=== PATIENT | male | born 1945 | race Caucasian/White ===

== ENCOUNTER 2017-08-27 10:56 | Inpatient (IN) ==
--- NOTE | 2017-08-26 21:13 | Discharge Summary ---
<Kiara Hernandez E - Last Filed: 08/26/17 21:11> Date of Encounter: 08/26/17 - Discharge Diagnosis (1) Osteoarthritis of right knee Priority: Primary Status: Chronic Qualifiers: Osteoarthritis type: unspecified Qualified Code(s): M17.11 - Unilateral primary osteoarthritis, right knee (2) HLD (hyperlipidemia) Priority: Secondary Status: Chronic Qualifiers: Hyperlipidemia type: unspecified Qualified Code(s): E78.5 - Hyperlipidemia , unspecified (3) RLS (restless legs syndrome) Priority: Secondary Status: Chronic (4) HTN (hypertension) Priority: Secondary Status: Chronic Qualifiers: Hypertension type: unspecified Qualified Code(s): I10 - Essential (primary ) hypertension (5) Seizure disorder Priority: Secondary Status: Chronic (6) Chronic deep vein thrombosis (DVT) of left lower extremity Priority: Secondary Status: Chronic Qualifiers: Affected thrombotic vein of extremity: unspecified vein of extremity Qualified Code(s): I82.502 - Chronic embolism and thrombosis of unspecified deep veins of left lower extremity (7) GERD (gastroesophageal reflux disease) Priority: Secondary Status: Chronic Qualifiers: Esophagitis presence: esophagitis presence not specified Qualified Code(s) : K21.9 - Gastro-esophageal reflux disease without esophagitis - Discharge Medications Home Medications: Phenytoin [Dilantin] 200 mg PO TID 04/01/15 [History] Pantoprazole Sodium [Protonix] 40 mg PO DAILY 01/06/16 [History] Primidone [Mysoline] 250 mg PO BID 01/06/16 [History] diazePAM [Valium] 5 mg PO DAILY PRN 01/06/16 [History] Acetaminophen [Tylenol] 650 mg PO Q6HR PRN #0 tablet 01/22/16 [Rx] Rivaroxaban [Xarelto] 15 mg PO DAILY 03/08/17 [History] Celecoxib [Celebrex] 200 mg PO BID 08/08/17 [History] Furosemide [Lasix] 20 mg PO DAILY 08/08/17 [History] OxyCODONE Immed Rel [Roxicodone 5 MG] 5 mg PO Q6HR PRN 7 Days #28 tablet [Rx] Ropinirole HCl [Requip] 3 mg PO TID 08/27/17 [History] Allergies/Adverse Reactions: 3 Allergy/AdvReac Type Severity Reaction Status Date / Time Penicillins [PCN] Allergy Hives Verified 08/27/17 12:05 Sulfa (Sulfonamide Allergy Hives Verified 08/27/17 12:05 Antibiotics) Primary care physician: Aliyah Torres CNP - Patient Status Disposition: Home, Self-Care Condition: Good - Discharge Instructions Follow Up With: Aliyah Torres CNP [Primary Care Provider] - - Hospital Course Hospital course: Mr. De La Fuente is a 72 year old male - Time Spent with Patient Total time spent providing and/or coordinating discharge services: <Juan Daniel Rangel - Last Filed: 08/29/17 10:25> Date of Encounter: 08/29/17 Time of Encounter: 10:24 - Discharge Diagnosis (1) Seizure Priority: Secondary Status: Chronic (2) Left bundle branch block Status: Chronic (3) GERD (gastroesophageal reflux disease) Priority: Secondary Status: Chronic Qualifiers: Esophagitis presence: esophagitis presence not specified Qualified Code(s) : K21.9 - Gastro-esophageal reflux disease without esophagitis (4) Osteopenia Priority: Secondary Status: Chronic Qualifiers: Osteopenia location: forearm Laterality: unspecified laterality Qualified Code(s): M85.839 - Other specified disorders of bone density and structure, unspecified forearm (5) Osteoarthritis of right knee Priority: Primary Status: Chronic Qualifiers: Osteoarthritis type: unspecified Qualified Code(s): M17.11 - Unilateral primary osteoarthritis, right knee (6) HLD (hyperlipidemia) Priority: Secondary Status: Chronic Qualifiers: Hyperlipidemia type: unspecified Qualified Code(s): E78.5 - Hyperlipidemia , unspecified (7) RLS (restless legs syndrome) Priority: Secondary Status: Chronic (8) HTN (hypertension) Priority: Secondary Status: Chronic Qualifiers: Hypertension type: unspecified Qualified Code(s): I10 - Essential (primary ) hypertension (9) Chronic deep vein thrombosis (DVT) of left lower extremity Priority: Secondary Status: Chronic Qualifiers: Affected thrombotic vein of extremity: unspecified vein of extremity Qualified Code(s): I82.502 - Chronic embolism and thrombosis of unspecified deep veins of left lower extremity (10) Status post total right knee replacement Priority: Primary Status: Acute Primary care physician: Aliyah Torres CNP - Patient Status Functional capacity at discharge: uses cane/walker Overall status at discharge: patient is progressing back to baseline - Hospital Course Hospital course: Mr. De La Fuente is a 72 year old male status post right total knee replacement The patient had an uneventful postoperative course. They received antibiotics and physical therapy and were discharged in stable condition. There will follow -up in the office in 2 weeks. - Time Spent with Patient Total time spent providing and/or coordinating discharge services:
--- NOTE | 2017-08-26 21:16 | Physician Discharge Referral ---
Home Health/Hosp Referral Info Transfer to: Home Health Attending Provider: Dr Juan Daniel Rangel - Diagnosis (1) Status post total right knee replacement Priority: Primary Status: Acute (2) Osteoarthritis of right knee Priority: Primary Status: Chronic (3) HLD (hyperlipidemia) Priority: Secondary Status: Chronic (4) RLS (restless legs syndrome) Priority: Secondary Status: Chronic (5) HTN (hypertension) Priority: Secondary Status: Chronic (6) Seizure disorder Priority: Secondary Status: Chronic (7) Chronic deep vein thrombosis (DVT) of left lower extremity Priority: Secondary Status: Chronic (8) GERD (gastroesophageal reflux disease) Priority: Secondary Status: Chronic - Respiratory Orders Smoking Cessation: Smoking cessation has been advised. For more information, call the [employer] Tobacco Quit Line at [phone]-EHKA-NOW. - Dressing/Wound Care Site: right knee Type of Dressing/Treatments w/Frequency: Opsite placed. Keep dressing intact until first follow up appointment. If > 50% saturated, notify office, remove dressing and place appropriate dressing back in place. Leave Zipline intact. Opsite dressing is water resistant, not water- proof. OK to shower, but do not get dressing wet. - Diet/Nutrition Diet/Nutrition Orders: Regular - Activity Activity Orders: Up ad kat, Ambulate, Chair, Walker Activity: List: Total Knee replacement Precautions x 6 weeks Apply cold therapy wrap 3-6x/day for 20 minutes at a time. Encourage ambulation throughout the day and incentive spirometer 10x/hour. Elevate affected extremity above heart as tolerated. Brace: Wear knee immobilizer at night x 2 weeks. - Services Needed Following services are medically necessary services: Nursing, Home Health Aide, Physical Therapy, Occupational Therapy - Transfer Medications Prescriptions: OxyCODONE Immed Rel [Roxicodone 5 MG] 5 mg PO Q6HR PRN 7 Days #28 tablet PRN Reason: Severe Pain Home Medications: Phenytoin [Dilantin] 200 mg PO TID 04/01/15 [History] Pantoprazole Sodium [Protonix] 40 mg PO DAILY 01/06/16 [History] Primidone [Mysoline] 250 mg PO BID 01/06/16 [History] diazePAM [Valium] 5 mg PO DAILY 01/06/16 [History] Acetaminophen [Tylenol] 650 mg PO Q6HR PRN #0 tablet 01/22/16 [Rx] Rivaroxaban [Xarelto] 15 mg PO DAILY 03/08/17 [History] Ropinirole HCl [Requip] 2 mg PO TID 03/08/17 [History] Celecoxib [Celebrex] 200 mg PO BID 08/08/17 [History] Furosemide [Lasix] 20 mg PO DAILY 08/08/17 [History] OxyCODONE Immed Rel [Roxicodone 5 MG] 5 mg PO Q6HR PRN 7 Days #28 tablet [Rx] Allergies/Adverse Reactions: 3 Allergy/AdvReac Type Severity Reaction Status Date / Time Penicillins [PCN] Allergy Hives Verified 08/06/17 09:37 Sulfa (Sulfonamide Allergy Hives Verified 08/06/17 09:37 Antibiotics) Certification: Further, I certify that my clinical findings support that this patient is homebound (i.e. absences from home require considerable and taxing effort and are for medical reasons or gnosticism services or infrequently or short duration when for other reasons) because: Homebound Reason: Post-surgery restriction and or conditions limit ability to leave home Attestation: My signature below is to certify that this patient is under my care and that I, or nurse practitioner, or a physician export sales assistant working with me, has a face-to- face encounter with this patient.
[2017-08-27] MEDS ORDERED: Clindamycin 900 MG/50 ML 900 MG/50 ML IV.SOLN IVPB ONE ×2 (11:08→11:11)
[2017-08-27] MEDS ORDERED: Plasma-Lyte A (PH 7.4) 1,000 ML IVC SCH (11:15)
--- NOTE | 2017-08-27 11:35 | History & Physical Report ---
Date of Encounter: 08/27/17 Time of Encounter: 11:35 24 Hour HP Update - Instructions Instructions: If the History and Physical is less than 30 days old and was completed prior to A.M. admission and or procedure and has NOT been updated on calendar day of procedure please complete this update prior to performing procedure. - Update Patient reports changes in Medical Condition: No Changes in examination, assessment, or condition: No Changes in Medication: No Preop tests/diagnostics Reviewed: Yes Surgery Remains Indicated: Yes Consent for Planned Operative Procedure(s) Verified: Yes - Pre-Operative Checklist Preoperative Checklist Indicated: No Prophylactic Antibiotic Ordered: Yes Is VTE Prophylaxis Indicated?: Yes
--- NOTE | 2017-08-27 11:50 | Anesthesia Evaluation PreOp ---
Date of Encounter: 08/27/17 Time of Encounter: 11:48 - Past History Planned Operation: Right Total Knee Arthroplasty Cardiac History: Denies any Significant Hx Pulmonary History: Denies Any Significant HX CROCHETER HAND History: Seizures (stable being medically treated), Other (RLS) Other Medical History: GERD, Other (H/O DVT's S/P IVC filter) Anesthesia History: No Prior Anesthetic Complications, Past Anesthesia Alcohol Use: none Drug use: none Medications and Allergies Phenytoin [Dilantin] 200 mg PO TID 04/01/15 [History] Pantoprazole Sodium [Protonix] 40 mg PO DAILY 01/06/16 [History] Primidone [Mysoline] 250 mg PO BID 01/06/16 [History] diazePAM [Valium] 5 mg PO DAILY PRN 01/06/16 [History] Acetaminophen [Tylenol] 650 mg PO Q6HR PRN #0 tablet 01/22/16 [Rx] Rivaroxaban [Xarelto] 15 mg PO DAILY 03/08/17 [History] Celecoxib [Celebrex] 200 mg PO BID 08/08/17 [History] Furosemide [Lasix] 20 mg PO DAILY 08/08/17 [History] OxyCODONE Immed Rel [Roxicodone 5 MG] 5 mg PO Q6HR PRN 7 Days #28 tablet [Rx] Ropinirole HCl [Requip] 3 mg PO TID 08/27/17 [History] 3 Allergy/AdvReac Type Severity Reaction Status Date / Time Penicillins [PCN] Allergy Hives Verified 08/27/17 12:05 Sulfa (Sulfonamide Allergy Hives Verified 08/27/17 12:05 Antibiotics) - Meds/Allergy Pre-op Review Medications Reviewed: Yes (xarelto-last dose 08/24/2017 at 0600) Allergies Reviewed: Yes Beta Blockers on Current Med List: No Anesthesia Results - Labs Laboratory Tests 08/06/17 08/06/17 08/06/17 09:45 09:45 09:45 WBC 5.3 Hgb 12.1 L Hct 39.1 Plt Count 224 PT 11.5 INR 1.1 APTT 30.2 Sodium 139 Potassium 4.2 BUN 27 H Creatinine 1.16 - Imaging EKG: report reviewed (08/06/2017 SINUS RHYTHM WITH FIRST DEGREE AV BLOCK INFERIOR MYOCARDIAL INFARCTION, PROBABLY OLD) Additional studies: 01/08/2016 Echo Impressions: Hyperdynamic LV systolic function, EF >70%. Not all myocardial segments were well visualized secondary to clinical status and tachycardia. Hyperdynamic RV function. Atria not well visualized. No significant valve dysfunction. Mild pulmonary hypertension. The IVC is not dilated. Trivial pericardial effusion without evidence for tamponade physiology. Anesthesia Exam O2 Sat Height 1.78 m Height 1.78 m Height 1.78 m Weight 90.718 kg Weight 90.718 kg Weight 90.718 kg O2 Sat by Pulse Oximetry 96 Vital Signs Temp Pulse Resp BP Pulse Ox 97.6 F 81 18 151/85 96 08/27/17 11:15 08/27/17 11:15 08/27/17 11:15 08/27/17 11:15 08/27/17 11:15 Height: 5'10" Weight: 200 lbs NPO (# of Hours): 8 Pain Scale: 0 Pain Scale Used: Numeric (1 - 10) - HEENT Pupil (Motor): EOMI Mallampati: II Teeth: Normal Oral Opening: Greater than 3 - CROCHETER HAND LOC: Oriented CROCHETER HAND Motor: Normal RUE, Normal LUE, Normal RLE, Normal LLE, Normal Face CROCHETER HAND Sensory: Normal: RUE, LUE, RLE, LLE, Face - Cardiac Rhythm: Regular - Pulmonary Breath Sounds: bilateral Clear Respiratory Effort: Symmetrical Anesthesia Assess/Plan ASA Score: 3 Modified [place] Scale for Level of Consciousness: Cooperative, oriented, and tranquil Anesthetic Plan: Regional Monitoring Plan: Standard Monitors Recovery Plan: PACU
[2017-08-27] MEDS ORDERED: Ethanol\\Acetic Acid\\Na Ace\\Ben 1,000 ML IRRIG.SOLN IR ONE (12:09)
[2017-08-27] MEDS ORDERED: *HR* FentaNYL (PF) 100 MCG/2 ML VIAL ONE (13:40)
[2017-08-27] MEDS ORDERED: *HR* Propofol 200 MG/20 ML VIAL IVP ONE (13:40)
[2017-08-27] MEDS ORDERED: Ketorolac 30 MG/ML VIAL ONE (13:40)
[2017-08-27] MEDS ORDERED: Lidocaine -MPF 2% 2 ML VIAL ONE ×3 (13:40→14:38)
[2017-08-27] MEDS ORDERED: *HR* Midazolam HCl 2 MG/2 ML VIAL ONE (13:56)
--- NOTE | 2017-08-27 14:31 | Anesthesia Procedures ---
Date of Encounter: 08/27/17 Time of Encounter: 14:28 Procedures: Anesthesia - Epidural/Spinal Patient ID/Chart reviewed: Yes Patient examined: Yes Supplemental Oxygen Rate (L/min): 2 Sedation: Versed (mg): 2 Sedation: Fentanyl (mcg): 50 Site Prep: Aseptic Technique, 0.5% Chlorhexidine/Alcohol Patient position: upright Local Anesthetic: Lidocaine 1% Amount of Local Anesthetic used: 3 Touhy Needle Gauge: 18 Touhy Needle Depth (cm): 7 Catheter Depth at Skin (cm): 14 Test Dose (1.5% Lido + Epi): Volume given (mls): 3 Test Dose Result: Negative Catheter Secured in Place: Tegaderm Interspace Used: L4-L5 Loss of Resistance (MARIA L): Yes Blood: No CSF: No Paresthesia: No Procedure: Strict asepsis, good MARIA L. Test dose negative thru catheter, but bolus dose held until patient taken to OR.
[2017-08-27] MEDS ORDERED: Acetaminophen IV 1,000 MG/100 ML INFUS..BTL ONE (14:32)
[2017-08-27] MEDS ORDERED: *HR* Morphine Sulfate/PF 10 MG/10 ML AMPUL ONE (14:32)
[2017-08-27] MEDS ORDERED: Bupivacaine/EPI 1:200k 0.5%PF 30 ML VIAL ONE (15:32)
[2017-08-27] MEDS ORDERED: *HR* OxyCODONE/APAP 5/325 TABLET PO PRN ×2 (15:32→17:20)
--- NOTE | 2017-08-27 15:52 | Orthopedic Operative Note ---
Date of procedure: 08/27/17 Pre-op diagnosis: Right knee arthritis Post-op diagnosis: same Procedure: Procedure: robotic-assisted Total knee replacement Estimated blood loss: 200 cc Hardware: Metal and polyethylene replacement. Anderson Femur: 5 Tibia: 6 TS insert: 13 Patella: 39 Exam Under anesthesia: 2 degrees loss of extension 3 degrees varus as calculated by the robot full flexion and no instability Procedural Notes: grade 4 arthritic changes all 3 compartments Operative procedure: The patient was brought to the operating room and placed on the operating room table. After general anesthesia was administered the operative knee was examined. Findings were noted in the exam under anesthesia. The operative extremity was prepped and draped in sterile surgical fashion. The patient received IV antibiotics prior to skin incision. A standard midline incision was made centered over the patella. The incision was made through the skin and subcutaneous tissue. A medial parapatellar tendon approach was performed. Care was taken to preserve tissue along the medial aspect of the patella. And to protect the patella tendon. The deep MCL was released off the medial tibia. The infra patella fat pad was excised. The patella was everted and cut was made at the level of the insertion of the quadriceps and patella tendon. The patella was sized to a 39 the guide was seated and the lug holes are drilled. Knee was brought into flexion. Patient noted to have grade 4 arthritic changes all 3 compartments. Steinmann pins were placed in the tibia and the femur for the tibial and femoral arrays respectively. Checkpoints were also placed in the tibia and the femur for calculation purposes. The knee including the femur and the tibial registered. Osteophytes, ACL and PCL were excised at this point. Extension and flexion were assessed with a valgus stress components were adjusted on the computer to balance the knee. Femoral cuts were made first with robotic assistance, these included the anterior cut posterior cuts chamfer cuts. Tibial cut was then performed with robotic assistance as well. Bone fragments were removed, as well as the medial and lateral meniscus. The size 5 femoral guide was seated box cut was made lug holes are drilled. The size 6 tibial tray was seated and prepared with the fin cutter. Trial reduction with the 13 TS Kelley revealed extension of 0 degree neutral alignment and full flexion. No varus valgus instability. Trial reduction revealed excellent patella tracking. All trial components were removed all bony surfaces were irrigated. The Tibia was seated followed by the femur, The Kelley size 13 was seated and secured patella. Patient had similar findings for motion and stability. The knee was closed by the PA. Irrigated with an antimicrobial solution. The knee was then irrigated out with 2 L of pulse irrigation. The PA close the knee. The extensor mechanism was closed with #2 FiberWire suture and #2 PDS suture. The subcutaneous tissue was then irrigated and closed deep with #1 PDS suture superficially with 0 PDS suture and skin was closed with zip tie The patient was then placed in a sterile dressing and a postoperative brace extubated and transferred to recovery room in stable condition. Anesthesia: MAC, epidural Surgeon: Juan Daniel Rangel Was there an bookkeeping assistant present: No Estimated blood loss (cc): 200 Condition: stable Disposition: PACU
[2017-08-27] MEDS ORDERED: EPHEDrine 50 MG/ML VIAL IVP PRN (16:33)
[2017-08-27] MEDS ORDERED: Ringers Solution, Lactated 1,000 ML ONE (17:04)
[2017-08-27 17:15] LABS: Hematocrit 32.4 % (37.5-50.1); Hemoglobin 10.5 g/dL (12.9-16.9)
[2017-08-27] MEDS ORDERED: Ringers Solution, Lactated 1,000 ML IVC SCH ×2 (17:15→17:20)
[2017-08-27] MEDS ORDERED: Naloxone 0.4 MG/ML INJ IVP PRN (17:20)
[2017-08-27] MEDS ORDERED: diazePAM 5 MG TABLET PO PRN (17:20)
[2017-08-27] MEDS ORDERED: MOM Conc 10 ML UD.LIQ PO PRN (17:20)
[2017-08-27] MEDS ORDERED: Temazepam 15 MG CAPSULE PO PRN (17:20)
[2017-08-27] MEDS ORDERED: Clindamycin 900 MG/50 ML 900 MG/50 ML IV.SOLN IVPB SCH (17:20)
[2017-08-27] MEDS ORDERED: Ondansetron 4 MG/2 ML VIAL IVP PRN (17:20)
[2017-08-27] MEDS ORDERED: Sennosides 8.6 MG TABLET PO PRN (17:20)
[2017-08-27] MEDS: Clindamycin 900 MG/50 ML 900 MG/50 ML IV.SOLN IVPB SCH (22:22)
[2017-08-28] MEDS: Clindamycin 900 MG/50 ML 900 MG/50 ML IV.SOLN IVPB SCH (05:25)
--- NOTE | 2017-08-28 06:55 | Orthopedics Progress Note ---
Date of Encounter: 08/28/17 Time of Encounter: 06:55 - Assessment and Plan (1) Seizure Current Visit: No Status: Chronic (2) Left bundle branch block Current Visit: No Status: Chronic (3) GERD (gastroesophageal reflux disease) Current Visit: No Status: Chronic Qualifiers: Esophagitis presence: esophagitis presence not specified Qualified Code(s) : K21.9 - Gastro-esophageal reflux disease without esophagitis (4) Osteopenia Current Visit: No Status: Chronic Qualifiers: Osteopenia location: forearm Laterality: unspecified laterality Qualified Code(s): M85.839 - Other specified disorders of bone density and structure, unspecified forearm (5) Osteoarthritis of right knee Current Visit: No Status: Chronic Qualifiers: Osteoarthritis type: unspecified Qualified Code(s): M17.11 - Unilateral primary osteoarthritis, right knee (6) HLD (hyperlipidemia) Current Visit: No Status: Chronic Qualifiers: Hyperlipidemia type: unspecified Qualified Code(s): E78.5 - Hyperlipidemia , unspecified (7) RLS (restless legs syndrome) Current Visit: No Status: Chronic (8) HTN (hypertension) Current Visit: No Status: Chronic Qualifiers: Hypertension type: unspecified Qualified Code(s): I10 - Essential (primary ) hypertension (9) Chronic deep vein thrombosis (DVT) of left lower extremity Current Visit: No Status: Chronic Qualifiers: Affected thrombotic vein of extremity: unspecified vein of extremity Qualified Code(s): I82.502 - Chronic embolism and thrombosis of unspecified deep veins of left lower extremity (10) Status post total right knee replacement Current Visit: No Status: Acute Subjective Interval history: Patient was seen this morning doing well without complaints. Afebrile vital signs stable. Operative extremity: Neurovascularly intact Dressing clean dry and intact Calves nontender Assessment and plan: Continue with postoperative care Hematocrit 32 Objective Vital signs: Vital Signs Temp Pulse Resp BP Pulse Ox 08/28/17 04:01 97.6 F 66 15 108/68 98 08/28/17 00:07 97.6 F 70 16 119/75 95 08/27/17 21:20 97.6 F 60 16 128/88 98 08/27/17 19:04 97.7 F 70 16 132/84 96 08/27/17 18:06 97.3 F L 73 14 124/70 95 08/27/17 17:22 97.3 F L 68 12 120/67 96 08/27/17 16:56 97.0 F L 66 16 150/76 99 08/27/17 16:46 71 16 154/83 98 08/27/17 16:36 64 16 156/95 100 08/27/17 16:26 97.4 F L 51 14 80/54 100 08/27/17 14:44 67 16 106/60 98 08/27/17 14:29 18 124/77 97 08/27/17 14:14 84 18 161/90 98 08/27/17 11:15 97.6 F 81 18 151/85 96 Intake and Output 08/27/17 08/27/17 08/28/17 15:59 23:59 07:59 Intake Total 50 / 50 Output Total 200 / 200 Balance -200 / -200 50 / 50 Intake: IV Fluids 50 / 50 Cleocin Premix 900 MG/50 ML 900 50 / 50 mg In 50 ml @ 50 mls/hr IVPB Q8H MALORIE Rx#:[id number] Output: Urine 0 / 0 Estimated Blood Loss 200 / 200 Other: # Urine Diapers 925 Weight 90.718 kg 92.7 kg Patient Weight 08/28/17 23:59 Weight 92.7 kg - Labs CBC & BMP: 08/27/17 16:50 Labs: Abnormal lab results Hgb 10.5 g/dL (12.9-16.9) L 08/27/17 16:50 Hct 32.4 % (37.5-50.1) L 08/27/17 16:50 - VTE Documentation of Mechanical Device: Venous foot pump, device Consult Discharge Plan - Plan Referrals: Aliyah Torres, DIETETIC TECH [Primary Care Provider] -
[2017-08-28 07:01] LABS: Hemoglobin 11.7 g/dL (12.9-16.9)
[2017-08-28 07:21] LABS: BUN/Creatinine Ratio 18 (6-26); Blood Urea Nitrogen 17 mg/dL (8-23); Calcium 8.4 mg/dL (8.6-10.3); Carbon Dioxide 27 mEq/L (23-29); Chloride 101 mEq/L (98-107); Glucose 127 mg/dL (70-105); Osmolality,Calculated 283 (280-300); Potassium 4.2 mEq/L (3.5-5.1); Sodium 135 mEq/L (136-145); eGFR For African Americans > 60 (> 60); eGFR For Non-African Americans > 60 (> 60)
--- NOTE | 2017-08-28 07:41 | Anesthesia Progress Note ---
Date of Encounter: 08/27/17 Time of Encounter: 15:30 Anesthesia Note - Note Note: 08/28/17 07:39 Bolused Epidural with 3 mg Duramorph at 1600 yesterday 08-27-2017. Pulled epidural in PACU, tip intact.
[2017-08-28] MEDS: *HR* Rivaroxaban 15 MG TABLET PO SCH (07:51)
[2017-08-28] MEDS: Furosemide 20 MG TABLET PO SCH (07:51)
[2017-08-28] MEDS: *HR* OxyCODONE Immed Rel 5 MG TABLET PO PRN (16:50)
--- NOTE | 2017-08-28 16:54 | Event Note ---
Date of Encounter: 08/28/17 Time of Encounter: 12:40 PCR- POD#1 R TKR robotic Rangel 08/27/17 PCR - Patient seen at bedside. Pain control: Adequate Participating in PT. All questions and concerns addressed. Educated on use of incentive spirometer, ambulation, and hydration. Patient educated on post-operative restrictions and care. Addressed: Dressing saturated. Per nursing, dressing has been saturated for several hours and continues to leak. Dressing taken down, active bleeding from mid incision and loss of integrity of Zipline noted. Incision cleansed and Zipline trimmed at weakening point appx distal 2/3 of incision. Incision cleansed with iodine then adri placed along incision. Bleeding resolved with staple placement. Cleansed again and Pressure dressing applied. Requested change every 4-6 hours until dry, then cleanse incision and place honeycomb. D/C plan: Home with home health today
[2017-08-29] MEDS: *HR* OxyCODONE Immed Rel 5 MG TABLET PO PRN ×3 (05:19→13:06)
[2017-08-29 06:19] LABS: Hematocrit 35.2 % (37.5-50.1); Hemoglobin 11.5 g/dL (12.9-16.9)
[2017-08-29 06:36] LABS: BUN/Creatinine Ratio 23 (6-26); Blood Urea Nitrogen 22 mg/dL (8-23); Calcium 7.9 mg/dL (8.6-10.3); Carbon Dioxide 26 mEq/L (23-29); Chloride 101 mEq/L (98-107); Glucose 148 mg/dL (70-105); Osmolality,Calculated 282 (280-300); Potassium 4.6 mEq/L (3.5-5.1); Sodium 133 mEq/L (136-145); eGFR For African Americans > 60 (> 60); eGFR For Non-African Americans > 60 (> 60)
[2017-08-29] MEDS: *HR* Rivaroxaban 15 MG TABLET PO SCH (09:09)
[2017-08-29] MEDS: Furosemide 20 MG TABLET PO SCH (09:09)
--- NOTE | 2017-08-29 10:26 | Orthopedics Progress Note ---
Date of Encounter: 08/29/17 Time of Encounter: 10:26 - Assessment and Plan (1) Seizure Current Visit: No Status: Chronic (2) Left bundle branch block Current Visit: No Status: Chronic (3) GERD (gastroesophageal reflux disease) Current Visit: No Status: Chronic Qualifiers: Esophagitis presence: esophagitis presence not specified Qualified Code(s) : K21.9 - Gastro-esophageal reflux disease without esophagitis (4) Osteopenia Current Visit: No Status: Chronic Qualifiers: Osteopenia location: forearm Laterality: unspecified laterality Qualified Code(s): M85.839 - Other specified disorders of bone density and structure, unspecified forearm (5) Osteoarthritis of right knee Current Visit: No Status: Chronic Qualifiers: Osteoarthritis type: unspecified Qualified Code(s): M17.11 - Unilateral primary osteoarthritis, right knee (6) HLD (hyperlipidemia) Current Visit: No Status: Chronic Qualifiers: Hyperlipidemia type: unspecified Qualified Code(s): E78.5 - Hyperlipidemia , unspecified (7) RLS (restless legs syndrome) Current Visit: No Status: Chronic (8) HTN (hypertension) Current Visit: No Status: Chronic Qualifiers: Hypertension type: unspecified Qualified Code(s): I10 - Essential (primary ) hypertension (9) Chronic deep vein thrombosis (DVT) of left lower extremity Current Visit: No Status: Chronic Qualifiers: Affected thrombotic vein of extremity: unspecified vein of extremity Qualified Code(s): I82.502 - Chronic embolism and thrombosis of unspecified deep veins of left lower extremity (10) Status post total right knee replacement Current Visit: No Status: Acute Subjective Interval history: Patient was seen this morning doing well without complaints. Afebrile vital signs stable. Operative extremity: Neurovascularly intact Dressing clean dry and intact Calves nontender Assessment and plan: Continue with postoperative care Discharge today Objective Vital signs: Vital Signs Temp Pulse Resp BP Pulse Ox 08/29/17 06:25 97.8 F 97 16 123/74 96 08/29/17 03:48 97.4 F L 95 16 118/74 97 08/29/17 03:15 97 08/28/17 22:58 98.1 F 88 18 137/76 97 08/28/17 19:01 97.9 F 94 18 124/71 97 08/28/17 15:13 98.1 F 72 18 127/88 97 08/28/17 11:23 97.5 F L 84 18 124/75 95 Intake and Output 08/28/17 08/29/17 08/29/17 23:59 07:59 15:59 Intake Total 360 / 360 0 / 0 Output Total 500 / 500 275 / 275 Balance -140 / -140 -275 / -275 Intake: Oral 360 / 360 0 / 0 Output: Urine 0 / 0 0 / 0 Straight Cath 500 / 500 275 / 275 Other: Meal Dinner Percent of Meal Consumed 75% Weight 92.1 kg Patient Weight 08/29/17 23:59 Weight 92.1 kg - Labs CBC & BMP: 08/29/17 05:43 08/29/17 05:43 Labs: Abnormal lab results Hgb 11.5 g/dL (12.9-16.9) L 08/29/17 05:43 Hct 35.2 % (37.5-50.1) L 08/29/17 05:43 Sodium 133 mEq/L (136-145) L 08/29/17 05:43 Glucose 148 mg/dL (70-105) H 08/29/17 05:43 Calcium 7.9 mg/dL (8.6-10.3) L 08/29/17 05:43 - VTE Documentation of Mechanical Device: Venous foot pump, device Consult Discharge Plan - Plan Referrals: Aliyah Torres CORPORATE EXECUTIVE [Primary Care Provider] -
[2017-08-29] MEDS ORDERED: diazePAM 5 MG TABLET PO PRN (18:12)
--- NOTE | 2017-08-30 08:29 | Orthopedics Progress Note ---
Date of Encounter: 08/30/17 Time of Encounter: 08:28 - Assessment and Plan (1) Seizure Current Visit: No Status: Chronic (2) Left bundle branch block Current Visit: No Status: Chronic (3) GERD (gastroesophageal reflux disease) Current Visit: No Status: Chronic Qualifiers: Esophagitis presence: esophagitis presence not specified Qualified Code(s) : K21.9 - Gastro-esophageal reflux disease without esophagitis (4) Osteopenia Current Visit: No Status: Chronic Qualifiers: Osteopenia location: forearm Laterality: unspecified laterality Qualified Code(s): M85.839 - Other specified disorders of bone density and structure, unspecified forearm (5) Osteoarthritis of right knee Current Visit: No Status: Chronic Qualifiers: Osteoarthritis type: unspecified Qualified Code(s): M17.11 - Unilateral primary osteoarthritis, right knee (6) HLD (hyperlipidemia) Current Visit: No Status: Chronic Qualifiers: Hyperlipidemia type: unspecified Qualified Code(s): E78.5 - Hyperlipidemia , unspecified (7) RLS (restless legs syndrome) Current Visit: No Status: Chronic (8) HTN (hypertension) Current Visit: No Status: Chronic Qualifiers: Hypertension type: unspecified Qualified Code(s): I10 - Essential (primary ) hypertension (9) Chronic deep vein thrombosis (DVT) of left lower extremity Current Visit: No Status: Chronic Qualifiers: Affected thrombotic vein of extremity: unspecified vein of extremity Qualified Code(s): I82.502 - Chronic embolism and thrombosis of unspecified deep veins of left lower extremity (10) Status post total right knee replacement Current Visit: No Status: Acute Subjective Interval history: Patient was seen this morning doing well without complaints. Afebrile vital signs stable. Operative extremity: Neurovascularly intact Dressing clean dry and intact Calves nontender Assessment and plan: Continue with postoperative care Discharge today Objective Vital signs: Vital Signs Temp Pulse Resp BP Pulse Ox 08/30/17 08:04 97.9 F 103 18 119/85 98 08/30/17 04:23 98.1 F 93 18 156/73 97 08/29/17 22:59 98.5 F 100 16 150/73 95 08/29/17 19:25 97.9 F 102 16 135/73 95 08/29/17 15:20 99.3 F 109 18 130/86 95 08/29/17 11:47 98.1 F 113 16 136/72 95 08/29/17 11:44 98.1 F 113 16 136/72 95 Intake and Output 08/29/17 08/30/17 08/30/17 23:59 07:59 15:59 Output Total 450 / 450 300 / 300 Balance -450 / -450 -300 / -300 Output: Catheter 450 / 450 300 / 300 Other: Meal Dinner Percent of Meal Consumed 90% - Labs CBC & BMP: 08/29/17 05:43 08/29/17 05:43 Labs: Abnormal lab results Hgb 11.5 g/dL (12.9-16.9) L 08/29/17 05:43 Hct 35.2 % (37.5-50.1) L 08/29/17 05:43 Sodium 133 mEq/L (136-145) L 08/29/17 05:43 Glucose 148 mg/dL (70-105) H 08/29/17 05:43 Calcium 7.9 mg/dL (8.6-10.3) L 08/29/17 05:43 - VTE Documentation of Mechanical Device: Venous foot pump, device Consult Discharge Plan - Plan Referrals: Aliyah Torres, [employer]IST [Primary Care Provider] -
[2017-08-30] MEDS: Furosemide 20 MG TABLET PO SCH (09:05)
[2017-08-30] MEDS: *HR* Rivaroxaban 15 MG TABLET PO SCH (09:05)
[2017-08-30 12:10] VITALS: BP 155/84
== END 2017-08-30 18:38 | disposition home or self-care (01) | DRG 470 ==
LOC: SAMDAY 10:56 → 3NENU 17:20
PROVIDERS: ADMIT Orthopaedic Surgery; ATTEND Orthopaedic Surgery

== ENCOUNTER 2018-01-30 09:29 | Inpatient (IN) ==
--- NOTE | 2018-01-30 09:44 | Emergency Department Note ---
Disposition Clinical Impression: Chest pain, Pulmonary embolism, DVT (deep venous thrombosis), Anemia, Closed traumatic nondisplaced fracture of rib Disposition: Admitted As Inpatient Condition: Fair General Adult HPI - General Chief complaint: ED Chest Pain Stated complaint: chest pain and possible DVT LLE Time Seen by Provider: 01/30/18 09:31 Source: patient Limitations: no limitations Nursing Notes Reviewed: Yes Vital Signs Reviewed: Yes - History of Present Illness Pain Scale: 0 - Related Data Home Medications Medication Instructions Recorded Confirmed Pantoprazole Sodium [Protonix] 40 mg PO DAILY 01/06/16 01/30/18 Primidone [Mysoline] 250 mg PO BID 01/06/16 01/30/18 diazePAM [Valium] 5 mg PO DAILY PRN 01/06/16 01/30/18 Rivaroxaban [Xarelto] 15 mg PO DAILY 03/08/17 01/30/18 Celecoxib [Celebrex] 200 mg PO BID 08/08/17 01/30/18 Furosemide [Lasix] 20 mg PO DAILY 08/08/17 01/30/18 Ropinirole HCl [Requip] 3 mg PO TID PRN 08/27/17 01/30/18 Phenytoin ER [Dilantin ER] 200 mg PO TID 01/30/18 01/30/18 Allergies Allergy/AdvReac Type Severity Reaction Status Date / Time Penicillins [PCN] Allergy Hives Verified 01/30/18 11:46 Sulfa (Sulfonamide Allergy Hives Verified 01/30/18 11:46 Antibiotics) Past Medical History - Past Medical History Medical history: Reports: arthritis, DVT, GERD, hyperlipidemia, seizures, other Surgical history: Reports: orthopedic, other (bilateral hip replacement 2015; bilatera wrist repair 2015; right knee replacement 08/27/2017) Psychiatric history: Reports: anxiety - Social History Smoking Status: Never smoker Smokeless Tobacco Status: No Alcohol use: Reports: none Drug use: Reports: none Physical Exam - General Limitations: no limitations General appearance: alert, in no apparent distress Course Vital Signs Temperature 98.5 F 01/30/18 09:33 Pulse Rate 96 01/30/18 09:33 Respiratory Rate 18 01/30/18 09:33 Blood Pressure 154/77 01/30/18 09:33 O2 Sat by Pulse Oximetry 96 01/30/18 09:33 Temperature 98.5 F 01/30/18 09:33 Pulse Rate 96 01/30/18 09:33 Respiratory Rate 18 01/30/18 12:56 Blood Pressure 145/86 01/30/18 12:56 O2 Sat by Pulse Oximetry 96 01/30/18 10:51 Oxygen Delivery Oxygen Delivery Room Air Medical Decision Making - MDM Narrative Medical decision making narrative: Chest X-Ray 01/30/18 09:37 IMPRESSION: Acute pulmonary process. D/ / González Bradley MD / González Bradley MD Interpreting Provider: González Bradley MD Chest X-Ray 01/30/18 09:37 IMPRESSION: No acute pulmonary process. D/ / 01/30/2018 10:01:44 González Bradley MD / bcarter Interpreting Provider: González Bradley MD Abdomen/Pelvis CT 01/30/18 10:27 IMPRESSION: 1. No evidence of traumatic visceral injury. In particular, no evidence of hepatic injury. 2. No acute findings within the abdomen or pelvis. Cholelithiasis with no acute features. No significant acute bowel pathology. 3. L2 vertebral fracture with increased height loss anteriorly since the previous CT. This may represent progression of the previous injury or re-injury. 4. Pleural plaque along the diaphragmatic pleural surface on the right measuring 9 mm maximally. This demonstrates slow interval increase in size since CT in 2014 . Consider follow-up CT of the chest in 6-12 months. D/ / Sumeet Munoz MD / Sumeet Munoz MD Interpreting Provider: Sumeet Munoz MD Chest CTA 01/30/18 10:27 IMPRESSION: 1. Right lower lobe segmental nonocclusive acute-subacute pulmonary emboli. 2. Nonspecific right lower lobe basal subpleural wedge-shaped subsegmental opacity which could represent atelectasis or possible developing pulmonary infarct. 3. Aortic and coronary atherosclerosis. 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 4. Right anterior 4th through 6th subacute and acute nondisplaced rib fractures. 5. Stable posterior right upper lobe scarring with focal bronchiectasis. This is likely related to sequela of prior infectious process. 6. Redemonstration of moderate hiatal hernia. Critical results were called by Dr. González Bradley MD to Dr. Beltran On 01/30/2018 at 11:27. D/ / González Bradley MD / González Bradley MD Interpreting Provider: González Bradley MD 1137 hrs. after speaking with radiology attending his pain is probably more due to the rib fractures anything else it is concerning that he does have the subacute PE. Were in agreement and talked about bringing him in the hospital. Since she has R answer all tone still has a clot. He will need some pain control so we will try Lidoderm patch here. Waiting on his DVT study. 1138 hrs.: Patient has a DVT also social work and I talked about bringing him into the hospital for second reason. - Lab Data Result diagrams: 01/30/18 09:41 01/30/18 09:41 Lab Results 01/30/18 01/30/18 01/30/18 Range/Units 09:41 09:41 09:41 WBC (4.3-11.1) K/mcL RBC (4.19-5.50) M/mcL Hgb (12.9-16.9) g/dL Hct (37.5-50.1) % MCV (83.0-100.0) fL MCH (28.0-33.3) pg MCHC (31.6-35.5) g/dL RDW (11.5-14.5) % Plt Count (140-400) K/mcL MPV (9.4-12.4) fL Immature Gran % (0-4) % Seg Neutrophils % % Lymphocytes % % Monocytes % % Eosinophils % % Basophils % % Neutrophils # (1.6-8.9) K/mcL Lymphocytes # (0.6-4.6) K/mcL Monocytes # (0.0-1.3) K/mcL Eosinophils # (0.0-0.6) K/mcL Basophils # (0.0-0.2) K/mcL Platelet Estimate (Normal) Hypochromasia (Not Present) Anisocytosis (Not Present) Microcytosis (Not Present) PT 12.2 H (9.4-12.1) Seconds INR 1.1 APTT 29.3 (26.0-36.0) Seconds Sodium (136-145) mEq/L Potassium (3.5-5.1) mEq/L Chloride (98-107) mEq/L Carbon Dioxide (23-29) mEq/L BUN (8-23) mg/dL Creatinine (0.70-1.30) mg/dL Est GFR ( Amer) (> 60) Est GFR (Non-Af Amer) (> 60) BUN/Creatinine Ratio (6-26) Glucose (70-105) mg/dL Calculated Osmolality (280-300) Calcium (8.6-10.3) mg/dL Iron (65-175) mcg/dL % Saturation (20-55) % Transferrin (203-362) mg/dL Total Bilirubin 0.2 L (0.3-1.0) mg/dL Direct Bilirubin 0.1 (0.0-0.2) mg/dL Indirect Bilirubin 0.1 (0.0-1.2) mg/dL AST 16 (13-39) Units/L ALT 12 (7-52) Units/L Alkaline Phosphatase 145 H (34-104) Units/L Troponin I (< 0.04) ng/mL B-Natriuretic Peptide 68 (Less than 100) pg/mL Serum Total Protein 6.1 L (6.4-8.9) g/dL Albumin 3.7 (3.5-5.7) g/dL Globulin 2.4 (2.4-3.5) g/dL Albumin/Globulin Ratio 1.5 (1.1-2.2) Lipase 27 (11-82) Units/L 01/30/18 01/30/18 Range/Units 09:41 09:41 WBC 4.2 L (4.3-11.1) K/mcL RBC 4.11 L (4.19-5.50) M/mcL Hgb 8.6 L (12.9-16.9) g/dL Hct 28.4 L (37.5-50.1) % MCV 69.1 L (83.0-100.0) fL MCH 20.9 L (28.0-33.3) pg MCHC 30.3 L (31.6-35.5) g/dL RDW 17.9 H (11.5-14.5) % Plt Count 178 (140-400) K/mcL MPV 7.8 L (9.4-12.4) fL Immature Gran % 0.7 (0-4) % Seg Neutrophils % 63.6 % Lymphocytes % 25.3 % Monocytes % 7.5 % Eosinophils % 2.7 % Basophils % 0.2 % Neutrophils # 2.7 (1.6-8.9) K/mcL Lymphocytes # 1.1 (0.6-4.6) K/mcL Monocytes # 0.3 (0.0-1.3) K/mcL Eosinophils # 0.1 (0.0-0.6) K/mcL Basophils # 0.0 (0.0-0.2) K/mcL Platelet Estimate Normal (Normal) Hypochromasia Present A (Not Present) Anisocytosis 2+ A (Not Present) Microcytosis Present A (Not Present) PT (9.4-12.1) Seconds INR APTT (26.0-36.0) Seconds Sodium 137 (136-145) mEq/L Potassium 4.3 (3.5-5.1) mEq/L Chloride 106 (98-107) mEq/L Carbon Dioxide 21 L (23-29) mEq/L BUN 28 H (8-23) mg/dL Creatinine 1.00 (0.70-1.30) mg/dL Est GFR ( Amer) > 60 (> 60) Est GFR (Non-Af Amer) > 60 (> 60) BUN/Creatinine Ratio 28 H (6-26) Glucose 150 H (70-105) mg/dL Calculated Osmolality 292 (280-300) Calcium 8.2 L (8.6-10.3) mg/dL Iron 15 L (65-175) mcg/dL % Saturation 3 L (20-55) % Transferrin 328 (203-362) mg/dL Total Bilirubin (0.3-1.0) mg/dL Direct Bilirubin (0.0-0.2) mg/dL Indirect Bilirubin (0.0-1.2) mg/dL AST (13-39) Units/L ALT (7-52) Units/L Alkaline Phosphatase (34-104) Units/L Troponin I < 0.03 (< 0.04) ng/mL B-Natriuretic Peptide (Less than 100) pg/mL Serum Total Protein (6.4-8.9) g/dL Albumin (3.5-5.7) g/dL Globulin (2.4-3.5) g/dL Albumin/Globulin Ratio (1.1-2.2) Lipase (11-82) Units/L Attestation Statement - Attestation Attestation: This documentation is done with the assistance of Dragon dictation. Despite efforts made to ensure accuracy, there may be inaccuracies in commercial attorney or spelling and typographical errors. I examined this patient and my medical decision-making was reviewed with the Resident Physician. I agree with the documented findings, disposition and treatment plan as described except to the extent set forth below. Patient presents today with his , he was evaluated by Dr. Argueta and myself, I agree with his evaluation and management plan, I supervised care of the patient' s stay. Patient patient was playing of pain on the right seventh chest going over to the sternum sharp in nature and intermittent he is also complaining of pain in his left lower extremity he has had a history of blood clot on that and his lungs are also denies any shortness of breath at this time no cardiac history. Regular cardiac workup x-ray of his chest and do a DVT study of his leg. He is in agreement with plan.
--- NOTE | 2018-01-30 09:46 | Emergency Department Note ---
Disposition Clinical Impression: Closed traumatic nondisplaced fracture of rib Chest pain Qualifiers: Chest pain type: intercostal pain Qualified Code(s): R07.82 - Intercostal pain Pulmonary embolism Qualifiers: Pulmonary embolism type: other Chronicity: acute Acute cor pulmonale presence: without acute cor pulmonale Qualified Code(s): I26.99 - Other pulmonary embolism without acute cor pulmonale DVT (deep venous thrombosis) Qualifiers: DVT location: lower extremity Affected thrombotic vein of extremity: popliteal Chronicity: acute Laterality: left Qualified Code(s): I82.432 - Acute embolism and thrombosis of left popliteal vein Anemia Qualifiers: Anemia type: unspecified type Qualified Code(s): D64.9 - Anemia, unspecified Disposition: Admitted As Inpatient Condition: Fair Referrals: Aliyah Torres CNP [Primary Care Provider] - Forms: ED Satisfaction Letter Time of Disposition: 12:13 Chest Pain HPI - General Chief Complaint: ED Chest Pain Stated Complaint: chest pain and possible DVT LLE Time Seen by Provider: 01/30/18 09:31 Source: patient, family Mode of arrival: wheelchair Limitations: no limitations Vital Signs Reviewed: Yes Nursing Notes Reviewed: Yes - History of Present Illness HPI Narrative: Patient presents to the ED via wheelchair with the chief complaint of chest pain. patient states that the pain started about 3 days ago. States he was not really doing anything at the time. States that the pain is mainly epigastric and radiates around to his right side. Does make him short of breath and diaphoretic. Pain is intermittent and nothing really seems to make it better or worse. He denies any abdominal pain, nausea, vomiting, diarrhea or abdominal pain. Denies any headache or changes in vision. Patient also complaining of left lower extremity swelling that is not new for him, but is worse than baseline. He does have a known DVT in that side and is on Xarelto. He states that this feels just like his previous DVT. No history of PE. No melena, hematochezia, hematuria. Patient did report to nursing staff that he had a fall in his basement about 4 days ago where he landed on his right side and has been having this chest pain since then. - Related Data Home Medications Medication Instructions Recorded Confirmed Pantoprazole Sodium [Protonix] 40 mg PO DAILY 01/06/16 01/30/18 Primidone [Mysoline] 250 mg PO BID 01/06/16 01/30/18 diazePAM [Valium] 5 mg PO DAILY PRN 01/06/16 01/30/18 Rivaroxaban [Xarelto] 15 mg PO DAILY 03/08/17 01/30/18 Celecoxib [Celebrex] 200 mg PO BID 08/08/17 01/30/18 Furosemide [Lasix] 20 mg PO DAILY 08/08/17 01/30/18 Ropinirole HCl [Requip] 3 mg PO TID PRN 08/27/17 01/30/18 Phenytoin ER [Dilantin ER] 300 mg PO TID 01/30/18 01/30/18 Allergies Allergy/AdvReac Type Severity Reaction Status Date / Time Penicillins [PCN] Allergy Hives Verified 01/30/18 11:46 Sulfa (Sulfonamide Allergy Hives Verified 01/30/18 11:46 Antibiotics) Review of Systems: As reviewed in the HPI. All other systems reviewed are negative or normal. Chest Pain PMH - Past Medical History Medical history: Reports: arthritis, DVT (chronic; left lower extremity), GERD, hyperlipidemia, seizures (Epilepsy), other (Restless Legs Syndrome; Lower extremity edema). Denies: osteoporosis (+ for osteopenia) Surgical history: Reports: orthopedic, other (bilateral hip replacement 2015; bilatera wrist repair 2015; right knee replacement 08/27/2017) Psychiatric history: Reports: anxiety - Social History Smoking Status: Never smoker Alcohol use: Reports: none Drug use: Reports: none Physical Exam - General Limitations: no limitations General appearance: alert, in no apparent distress - Head Head exam: atraumatic, normocephalic, normal inspection - Eye Eye exam: Present: normal appearance, PERRL, EOMI - ENT ENT exam: normal exam, normal oropharynx, mucous membranes moist - Neck Neck exam: Present: normal inspection, full ROM, trachea midline - Chest Chest inspection: Present: normal inspection, symmetric chest wall rise, tenderness (mild tenderness along the ribs ) - Respiratory Respiratory exam: Present: normal lung sounds bilaterally - Cardiovascular Cardiovascular exam: Present: regular rate, normal rhythm, normal heart sounds - Abdominal Exam Abdominal exam: Present: soft, Non-Tender, normal bowel sounds. Absent: tenderness, distention, guarding, rebound, rigidity - Extremities Exam Extremities exam: Present: normal inspection, full ROM, normal capillary refill , pedal edema, calf tenderness (Left). Absent: tenderness - Neurological Exam Neurological exam: Present: alert, oriented X3 - Psychiatric Psychiatric exam: Present: normal affect, normal mood - Skin Skin exam: Present: warm, dry, intact, normal color Course Course Narrative: patient presenting with CP/SOB that is mainly R sided. also had a fall 3-4 days ago which is likely the cause of his pain. However, patient does have a known DVT in his L leg and is on Xarelto. DDX including ACS/PE/Liver lac/MSK pain. Will get labs and CXR to start. - Reevaluation(s) Reevaluation #1: Chest CT does show a small right-sided PE and possible area of infarction. He also has associated rib fractures on that side, but are nondisplaced. No liver injury. We will admit to the hospitalist service. Also has a left popliteal DVT, which is new. Vital Signs Temperature 98.5 F 01/30/18 09:33 Pulse Rate 96 01/30/18 09:33 Respiratory Rate 18 01/30/18 09:33 Blood Pressure 154/77 01/30/18 09:33 O2 Sat by Pulse Oximetry 96 01/30/18 09:33 Temperature 98.5 F 01/30/18 09:33 Pulse Rate 96 01/30/18 09:33 Respiratory Rate 18 01/30/18 10:51 Blood Pressure 146/74 01/30/18 10:51 O2 Sat by Pulse Oximetry 96 01/30/18 10:51 Oxygen Delivery Oxygen Delivery Room Air Chest Pain - Medical Records Medical records reviewed: Yes I reviewed the patient's medical records. - Lab Data Lab results reviewed: Yes I reviewed the patient's lab results. Result diagrams: 01/30/18 09:41 01/30/18 09:41 Lab Results 01/30/18 01/30/18 01/30/18 Range/Units 09:41 09:41 09:41 WBC (4.3-11.1) K/mcL RBC (4.19-5.50) M/mcL Hgb (12.9-16.9) g/dL Hct (37.5-50.1) % MCV (83.0-100.0) fL MCH (28.0-33.3) pg MCHC (31.6-35.5) g/dL RDW (11.5-14.5) % Plt Count (140-400) K/mcL MPV (9.4-12.4) fL Immature Gran % (0-4) % Seg Neutrophils % % Lymphocytes % % Monocytes % % Eosinophils % % Basophils % % Neutrophils # (1.6-8.9) K/mcL Lymphocytes # (0.6-4.6) K/mcL Monocytes # (0.0-1.3) K/mcL Eosinophils # (0.0-0.6) K/mcL Basophils # (0.0-0.2) K/mcL Platelet Estimate (Normal) Hypochromasia (Not Present) Anisocytosis (Not Present) Microcytosis (Not Present) PT 12.2 H (9.4-12.1) Seconds INR 1.1 APTT 29.3 (26.0-36.0) Seconds Sodium (136-145) mEq/L Potassium (3.5-5.1) mEq/L Chloride (98-107) mEq/L Carbon Dioxide (23-29) mEq/L BUN (8-23) mg/dL Creatinine (0.70-1.30) mg/dL Est GFR ( Amer) (> 60) Est GFR (Non-Af Amer) (> 60) BUN/Creatinine Ratio (6-26) Glucose (70-105) mg/dL Calculated Osmolality (280-300) Calcium (8.6-10.3) mg/dL Total Bilirubin 0.2 L (0.3-1.0) mg/dL Direct Bilirubin 0.1 (0.0-0.2) mg/dL Indirect Bilirubin 0.1 (0.0-1.2) mg/dL AST 16 (13-39) Units/L ALT 12 (7-52) Units/L Alkaline Phosphatase 145 H (34-104) Units/L Troponin I (< 0.04) ng/mL B-Natriuretic Peptide 68 (Less than 100) pg/mL Serum Total Protein 6.1 L (6.4-8.9) g/dL Albumin 3.7 (3.5-5.7) g/dL Globulin 2.4 (2.4-3.5) g/dL Albumin/Globulin Ratio 1.5 (1.1-2.2) Lipase 27 (11-82) Units/L 01/30/18 01/30/18 Range/Units 09:41 09:41 WBC 4.2 L (4.3-11.1) K/mcL RBC 4.11 L (4.19-5.50) M/mcL Hgb 8.6 L (12.9-16.9) g/dL Hct 28.4 L (37.5-50.1) % MCV 69.1 L (83.0-100.0) fL MCH 20.9 L (28.0-33.3) pg MCHC 30.3 L (31.6-35.5) g/dL RDW 17.9 H (11.5-14.5) % Plt Count 178 (140-400) K/mcL MPV 7.8 L (9.4-12.4) fL Immature Gran % 0.7 (0-4) % Seg Neutrophils % 63.6 % Lymphocytes % 25.3 % Monocytes % 7.5 % Eosinophils % 2.7 % Basophils % 0.2 % Neutrophils # 2.7 (1.6-8.9) K/mcL Lymphocytes # 1.1 (0.6-4.6) K/mcL Monocytes # 0.3 (0.0-1.3) K/mcL Eosinophils # 0.1 (0.0-0.6) K/mcL Basophils # 0.0 (0.0-0.2) K/mcL Platelet Estimate Normal (Normal) Hypochromasia Present A (Not Present) Anisocytosis 2+ A (Not Present) Microcytosis Present A (Not Present) PT (9.4-12.1) Seconds INR APTT (26.0-36.0) Seconds Sodium 137 (136-145) mEq/L Potassium 4.3 (3.5-5.1) mEq/L Chloride 106 (98-107) mEq/L Carbon Dioxide 21 L (23-29) mEq/L BUN 28 H (8-23) mg/dL Creatinine 1.00 (0.70-1.30) mg/dL Est GFR ( Amer) > 60 (> 60) Est GFR (Non-Af Amer) > 60 (> 60) BUN/Creatinine Ratio 28 H (6-26) Glucose 150 H (70-105) mg/dL Calculated Osmolality 292 (280-300) Calcium 8.2 L (8.6-10.3) mg/dL Total Bilirubin (0.3-1.0) mg/dL Direct Bilirubin (0.0-0.2) mg/dL Indirect Bilirubin (0.0-1.2) mg/dL AST (13-39) Units/L ALT (7-52) Units/L Alkaline Phosphatase (34-104) Units/L Troponin I < 0.03 (< 0.04) ng/mL B-Natriuretic Peptide (Less than 100) pg/mL Serum Total Protein (6.4-8.9) g/dL Albumin (3.5-5.7) g/dL Globulin (2.4-3.5) g/dL Albumin/Globulin Ratio (1.1-2.2) Lipase (11-82) Units/L - Radiology Data Radiology results reviewed: Yes I reviewed the patient's radiology results. - EKG Data EKG attestation: Yes I reviewed and interpreted this EKG. EKG results narrative: Sinus rhythm with first-degree AV block, rate 95, ND interval 229, QRS 151, QTc 439, left bundle branch block, which is changed from previous. On 08/16/2017 Raissa - Raissa Situation: Demographics, MOA Background: Presenting Complaint, Relevant PMH, Meds, & Allergies Assessment: Vital Signs, Course and respsone to treatment, Exam Concerns, Patient/Family Expectation, Pertinant Lab Results, Outstanding Labs Recommendation: Barrier(s) to disposition, Recommendation based on pending studies, treatments, or consults [email or web address] Report Given to: Dr. Ramírez Haji Repor Time: 12:13
[2018-01-30 09:52] LABS: Basophils % 0.2 %; Eosinophils # 0.1 K/mcL (0.0-0.6); Eosinophils % 2.7 %; Hematocrit 28.4 % (37.5-50.1); Hemoglobin 8.6 g/dL (12.9-16.9); Immature Granulocytes % 0.7 % (0-4); Lymphocytes # 1.1 K/mcL (0.6-4.6); Lymphocytes % 25.3 %; Mean Corpuscular HGB Conc 30.3 g/dL (31.6-35.5); Mean Corpuscular Hemoglobin 20.9 pg (28.0-33.3); Mean Corpuscular Volume 69.1 fL (83.0-100.0); Mean Platelet Volume 7.8 fL (9.4-12.4); Monocytes # 0.3 K/mcL (0.0-1.3); Monocytes % 7.5 %; Neutrophils # 2.7 K/mcL (1.6-8.9); Platelet Count 178 K/mcL (140-400); Red Blood Count 4.11 M/mcL (4.19-5.50); Red Cell Distribution Width 17.9 % (11.5-14.5); Segmented Neutrophils % 63.6 %
[2018-01-30 10:11] LABS: Albumin 3.7 g/dL (3.5-5.7); Albumin/Globulin Ratio 1.5 (1.1-2.2); Bilirubin,Direct 0.1 mg/dL (0.0-0.2); Bilirubin,Indirect 0.1 mg/dL (0.0-1.2); Bilirubin,Total 0.2 mg/dL (0.3-1.0); Globulin 2.4 g/dL (2.4-3.5); Total Protein 6.1 g/dL (6.4-8.9)
[2018-01-30 10:13] LABS: BUN/Creatinine Ratio 28 (6-26); Blood Urea Nitrogen 28 mg/dL (8-23); Calcium 8.2 mg/dL (8.6-10.3); Carbon Dioxide 21 mEq/L (23-29); Chloride 106 mEq/L (98-107); Glucose 150 mg/dL (70-105); Osmolality,Calculated 292 (280-300); Potassium 4.3 mEq/L (3.5-5.1); Sodium 137 mEq/L (136-145); eGFR For African Americans > 60 (> 60); eGFR For Non-African Americans > 60 (> 60)
[2018-01-30 10:14] LABS: Troponin I < 0.03 ng/mL (< 0.04)
[2018-01-30 10:21] LABS: Anisocytosis 2+ (Not Present); Hypochromasia Present (Not Present); Microcytosis Present (Not Present); Platelet Estimate Normal (Normal)
[2018-01-30 10:24] LABS: INR 1.1; Prothrombin Time 12.2 Seconds (9.4-12.1)
[2018-01-30 10:27] LABS: Activated Partial Thrombo Time 29.3 Seconds (26.0-36.0)
[2018-01-30] MEDS ORDERED: 0.9 % Sodium Chloride 1,000 ML IVC ONE (10:27)
[2018-01-30] MEDS ORDERED: Isovue-370 500 ML INFUS..BTL IV ONE (10:27)
[2018-01-30] MEDS ORDERED: Naloxone 0.4 MG/ML INJ IVP PRN (12:12)
--- NOTE | 2018-01-30 12:12 | Internal Med History&Physical ---
Date of Encounter: 01/30/18 Time of Encounter: 12:00 Internal Medicine - H&P: HPI Chief complaint: right sided chest pain for 5 days s/p fall Admitted From: Emergency Dept History of present illness: Mr. De La Fuente is a 72 year old male with pmh of bilateral hip replacement and DVT s/ p IVC filter about a year ago per patient presents with complaints of right sided chest pain today s/p fall about 5 days ago. Patient says he has a wobbly gait and was in the basement of his home when he tripped and fell on his right side. He has been hurting on the right side since then with sharp chest pain and that's why he came to the ER. he also complained of occasional shortness of breath. In the RER, the y did a ct chest which came back positive for a left sided PE with possible infarct. A chest xray also showed non displaced rib fractures on the right side. He also complains of diffculty walking which he says was similar to whe n he had a DVT. An ultrasound showed a left popliteal DVT. he will be admitted for further management Past Med Surg Social Fam HX - Past Medical History Medical history: arthritis, DVT (chronic; left lower extremity), GERD, hyperlipidemia, seizures (Epilepsy), other (Restless Legs Syndrome; Lower extremity edema) Additional medical history: dvt to right leg currently on xarelto. rls. IVC FILTER Psychiatric history: anxiety - Past Surgical History Surgical History: orthopedic, other (bilateral hip replacement 2015; bilatera wrist repair 2015; right knee replacement 08/27/2017) Additional surgical history: r hip replacement. l hip replacement. r wrist surgery - Social History Smoking Status: Never smoker Smokeless Tobacco Status: No Alcohol use: none Drug use: none - Family History Mother Hx Family Cardiac Disorders: Yes (htn) Hx Family Respiratory Disorders: No Father Adopted: No Family Member Ethnicity: Non- Living Status: Hx Family Cardiac Disorders: Yes Hx Family Respiratory Disorders: No Hx Family Cancer: No Hx Family GI Disorders: Yes (PUDx) Hx Family Endocrine Disorder: No Hx Family Neuromuscular Disorders: No Hx Family Neurologic Disorders: No Hx Family HEENT Disorders: No Hx Family Autoimmune Disorders: No Brother Hx Family Cardiac Disorders: Yes (CAD) Internal Medicine - H&P: Meds Pantoprazole Sodium [Protonix] 40 mg PO DAILY 01/06/16 [History] Primidone [Mysoline] 250 mg PO BID 01/06/16 [History] diazePAM [Valium] 5 mg PO DAILY PRN 01/06/16 [History] Rivaroxaban [Xarelto] 15 mg PO DAILY 03/08/17 [History] Celecoxib [Celebrex] 200 mg PO BID 08/08/17 [History] Furosemide [Lasix] 20 mg PO DAILY 08/08/17 [History] Ropinirole HCl [Requip] 3 mg PO TID PRN 08/27/17 [History] Phenytoin ER [Dilantin ER] 200 mg PO TID 01/30/18 [History] 3 Allergy/AdvReac Type Severity Reaction Status Date / Time Penicillins [PCN] Allergy Hives Verified 01/30/18 11:46 Sulfa (Sulfonamide Allergy Hives Verified 01/30/18 11:46 Antibiotics) All Systems PM: A 10-system review of systems was performed and is negative for pertinent findings except as documented above in the HPI. - Constitutional Constitutional: no chills, no fever(s), no night sweats - EENT Eyes: no change in vision, no discharge, no pain, no photophobia Ears: no ear discharge, no ear pain, no tinnitus Nose, mouth and throat: no dysphagia, no nasal discharge, no neck pain, no sore throat - Cardiovascular Cardiovascular ROS IM: chest pain, dyspnea on exertion, no diaphoresis, no dyspnea, no lightheadedness, no palpitations, no syncope - Respiratory Respiratory: no cough, no dyspnea, no wheezing, no excessive phlegm production - Gastrointestinal Gastrointestinal: no abdominal pain, no diarrhea, no hematemesis, no hematochezia, no melena, no nausea, no vomiting - Musculoskeletal Musculoskeletal ROS IM: no numbness, no tingling - Integumentary Integumentary IM: no rash, no unusual bruising - Neurological Neurological ROS: no confusion, no convulsions, no focal weakness, no numbness, no tingling, no tremor(s) - Hematologic/Lymphatic Hematologic/Lymphatic: no easy bruising - Constitutional Vitals: Temp Pulse Resp BP Pulse Ox 98.5 F 96 18 146/74 96 01/30/18 09:33 01/30/18 09:33 01/30/18 10:51 01/30/18 10:51 01/30/18 10:51 - Head Head exam: Present: atraumatic, normocephalic - Eye Eye exam: Present: PERRL, conjuntiva pink, sclera anicteric Pupils: Present: PERRL - Neck Neck exam general surgery: Present: supple, trachea midline. Absent: lymphadenopathy - Respiratory Respiratory exam: Present: CTAB. Absent: accessory muscle use, rales, rhonchi, wheezes - Cardiovascular Cardiovascular exam: Present: RRR, +S1, +S2. Absent: diastolic murmur, gallop, rubs, systolic murmur - GI/Abdominal GI/Abdominal exam: Present: normal bowel sounds, soft, no peritoneal signs. Absent: distended, tenderness - Extremities Exam Extremities exam: Present: warm, radial pulses palpable and symmetrical. Absent : calf tenderness, cyanotic, pedal edema - Neurological Exam Neurological exam: Present: CN II-XII intact, oriented X3, no focal deficits. Absent: pronater drift, facial droop, speech deficit - Skin Skin exam: Present: dry, intact Internal Med - H&P Results - Labs CBC & Chem 7: 01/30/18 09:41 01/30/18 09:41 Labs: Short CBC 01/30/18 Range/Units 09:41 WBC 4.2 L (4.3-11.1) K/mcL Hgb 8.6 L (12.9-16.9) g/dL Hct 28.4 L (37.5-50.1) % Plt Count 178 (140-400) K/mcL Neutrophils # 2.7 (1.6-8.9) K/mcL BMP 01/30/18 09:41 Sodium 137 Potassium 4.3 Chloride 106 Carbon Dioxide 21 L BUN 28 H Creatinine 1.00 Glucose 150 H Calcium 8.2 L Cardiac Enzymes 01/30/18 Range/Units 09:41 Troponin I < 0.03 (< 0.04) ng/mL Liver Function 01/30/18 Range/Units 09:41 Total Bilirubin 0.2 L (0.3-1.0) mg/dL Direct Bilirubin 0.1 (0.0-0.2) mg/dL AST 16 (13-39) Units/L ALT 12 (7-52) Units/L Alkaline Phosphatase 145 H (34-104) Units/L Albumin 3.7 (3.5-5.7) g/dL - Impressions ITS Impressions Chest X-Ray 01/30/18 09:37 IMPRESSION: No acute pulmonary process. D/ / 01/30/2018 10:01:44 González Bradley MD / kelsey Interpreting Provider: González Bradley MD Abdomen/Pelvis CT 01/30/18 10:27 IMPRESSION: 1. No evidence of traumatic visceral injury. In particular, no evidence of hepatic injury. 2. No acute findings within the abdomen or pelvis. Cholelithiasis with no acute features. No significant acute bowel pathology. 3. L2 vertebral fracture with increased height loss anteriorly since the previous CT. This may represent progression of the previous injury or re-injury. 4. Pleural plaque along the diaphragmatic pleural surface on the right measuring 9 mm maximally. This demonstrates slow interval increase in size since CT in 2013. Consider follow-up CT of the chest in 6 to 12 months. D/ / 01/30/2018 11:37:18 Sumeet Munoz MD / kelsey Interpreting Provider: Sumeet Munoz MD Chest CTA 01/30/18 10:27 IMPRESSION: 1. Right lower lobe segmental nonocclusive acute-subacute pulmonary emboli. 2. Nonspecific right lower lobe basal subpleural wedge-shaped subsegmental opacity which could represent atelectasis or possible developing pulmonary infarct. 3. Aortic and coronary atherosclerosis. 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 4. Right anterior 4th through 6th subacute and acute nondisplaced rib fractures. 5. Stable posterior right upper lobe scarring with focal bronchiectasis. This is likely related to sequela of prior infectious process. 6. Redemonstration of moderate hiatal hernia. Critical results were called by Dr. González Bradley MD to Dr. Beltran On 01/30/2018 at 11:27. D/ / 01/30/2018 11:38:55 González Bradley MD / tracey Interpreting Provider: González Bradley MD - Assessment and plan (1) Pulmonary embolism Current Visit: Yes Status: Acute Assessment and plan: Ne w PE noted in left lung. was on xarelto 15mg po daily atv home for previous DVT. Will increase xarelto to 15mg po BID. 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 continue xarelto 15mg po BID Qualifiers: DVT location: lower extremity Affected thrombotic vein of extremity: popliteal Chronicity: acute Laterality: left Qualified Code(s): I82.432 - Acute embolism and thrombosis of left popliteal vein (3) Closed rib fracture Current Visit: Yes Status: Acute Assessment and plan: Ribs 4-6 on the right side show non displaced fracture. Pain control PRN. Discussed with surgery, Dr Oro, no acute surgical intervention Qualifiers: Qualified Code(s): S22.41XA - Multiple fractures of ribs, right side, initial encounter for closed fracture (4) Seizure Current Visit: No Status: Chronic Assessment and plan: Continue phenytoin (5) DVT prophylaxis Current Visit: No Status: Acute Assessment and plan: on xarelto - Time Spent With Patient Total time spent is greater than 50% in coordination of care (as documented) at patient's floor/unit and/or counseling patient:
[2018-01-30 12:32] LABS: % Iron Saturation 3 % (20-55); Iron 15 mcg/dL (65-175); Transferrin 328 mg/dL (203-362)
[2018-01-30] MEDS: *HR* Rivaroxaban 15 MG TABLET PO SCH ×2 (16:42→20:37)
[2018-01-30] MEDS: Celecoxib 200 MG CAPSULE PO SCH (20:37)
[2018-01-31 03:37] LABS: Basophils % 0.3 %; Eosinophils # 0.2 K/mcL (0.0-0.6); Eosinophils % 4.3 %; Hemoglobin 8.8 g/dL (12.9-16.9); Immature Granulocytes % 0.5 % (0-4); Lymphocytes % 27.1 %; Mean Corpuscular HGB Conc 30.3 g/dL (31.6-35.5); Mean Corpuscular Hemoglobin 21.1 pg (28.0-33.3); Mean Corpuscular Volume 69.4 fL (83.0-100.0); Mean Platelet Volume 8.4 fL (9.4-12.4); Monocytes # 0.3 K/mcL (0.0-1.3); Monocytes % 7.4 %; Neutrophils # 2.3 K/mcL (1.6-8.9); Platelet Count 191 K/mcL (140-400); Red Blood Count 4.18 M/mcL (4.19-5.50); Segmented Neutrophils % 60.4 %
[2018-01-31 03:50] LABS: INR 1.2; Prothrombin Time 13.5 Seconds (9.4-12.1)
[2018-01-31 03:53] LABS: Activated Partial Thrombo Time 34.7 Seconds (26.0-36.0)
[2018-01-31 04:00] LABS: BUN/Creatinine Ratio 25 (6-26); Blood Urea Nitrogen 20 mg/dL (8-23); Calcium 8.6 mg/dL (8.6-10.3); Carbon Dioxide 25 mEq/L (23-29); Chloride 105 mEq/L (98-107); Glucose 109 mg/dL (70-105); Magnesium 2.3 mg/dL (1.6-2.6); Osmolality,Calculated 287 (280-300); Phosphorous 4.4 mg/dL (2.7-4.5); Potassium 4.3 mEq/L (3.5-5.1); Sodium 137 mEq/L (136-145); eGFR For African Americans > 60 (> 60); eGFR For Non-African Americans > 60 (> 60)
[2018-01-31 04:32] LABS: Hypochromasia Present (Not Present)
[2018-01-31 04:33] LABS: Microcytosis Present (Not Present); Ovalocytes 1+ (Not Present); Platelet Estimate Normal (Normal); Poikilocytosis 1+ (Not Present)
[2018-01-31 04:35] LABS: Macrocytosis Present (Not Present); Polychromasia 1+ (Not Present)
[2018-01-31] MEDS: Celecoxib 200 MG CAPSULE PO SCH (07:31)
[2018-01-31] MEDS: Furosemide 20 MG TABLET PO SCH (07:31)
[2018-01-31] MEDS: *HR* Rivaroxaban 15 MG TABLET PO SCH ×2 (07:31→20:41)
[2018-01-31] MEDS: diazePAM 5 MG TABLET PO PRN (07:33)
[2018-01-31 09:17] LABS: Ferritin < 8 ng/mL (20-250)
--- NOTE | 2018-01-31 09:23 | Oncology Inp Consult Note ---
Date of Encounter: 01/31/18 Time of Encounter: 08:00 Assessment and Plan (1) Pulmonary embolism Status: Acute Assessment and plan: Acute to subacute pulmonary emboli right lower lobe, status post fall, prior history of left lower extremity DVT, Doppler showing left lower extremity thrombosis as well, he is currently on Xarelto 15 mg twice daily. Due to possible drug interactions with the seizure medications Lovenox or alternative anticoagulation may be a better choice for him for long-term anticoagulation. Regardless patient needs to follow up with hematology due to significant anemia and ongoing anti-coag ablation. Anemia, iron deficiency. Consider GI workup to rule out occult bleeding. Status post recent trauma rib fractures, and multiple prior surgeries could account for some anemia. Oral iron supplementation. Transfuse PRBC as necessary. Plan as above reviewed with patient bed side. Qualifiers: Pulmonary embolism type: other Chronicity: acute Acute cor pulmonale presence: without acute cor pulmonale Qualified Code(s): I26.99 - Other pulmonary embolism without acute cor pulmonale - Data of Consult Requesting Physician: Beau Stone DO Primary Care Provider: Aliyah Torres CNP - Consult Narrative Reason for consult: dvt pe History of present illness: Mr. De La Fuente is a 72 year old male with medical history significant for left leg DVT, Xarelto 15 mg daily, history of restless leg syndrome, seizures on Dilantin and primidone, gastric esophageal reflux disease, hypercholesterolemia , arthritis, history of bilateral hip replacement, knee surgery, hospitalized with chest pain, that started 3 days ago. Patient also had sustained a fall 5 days ago or so, developed a left lower extremity swelling more than usual. Left leg Dopplers showed again a left lower extremity popliteal DVT. Carotids. He also underwent a CT angiogram for chest pain that showed right lower lobe segmental acute to subacute pulmonary emboli right lower lobe wedge shaped subsegmental opacity possible pulmonary infarct. Nondisplaced rib fractures in the right chest. Patient was discussed with hospital staff and Xarelto was increased to 15 mg twice daily. Patient denies any pain currently. He has lower extremity swelling on compression stockings. He denies any gross GI bleeding. Ferritin appears less than 5 he is also significantly anemic. Past Med Surg Social Fam HX - Past Medical History Medical history: arthritis, DVT (chronic; left lower extremity), GERD, hyperlipidemia, seizures (Epilepsy), other (Restless Legs Syndrome; Lower extremity edema) Additional medical history: dvt to right leg currently on xarelto. rls. IVC FILTER Psychiatric history: anxiety - Past Surgical History Surgical History: orthopedic, other (bilateral hip replacement 2015; bilatera wrist repair 2015; right knee replacement 08/27/2017) Additional surgical history: r hip replacement. l hip replacement. r wrist surgery - Social History Smoking Status: Never smoker Smokeless Tobacco Status: No Alcohol use: none Drug use: none - Family History Mother Age at : 54 Cause of : heart problems Hx Family Cardiac Disorders: Yes (htn) Hx Family Respiratory Disorders: No Father Adopted: No Family Member Ethnicity: Non- Living Status: Age at : 87 Cause of : heart problems Hx Family Cardiac Disorders: Yes Hx Family Respiratory Disorders: No Hx Family Cancer: No Hx Family GI Disorders: Yes (PUDx) Hx Family Endocrine Disorder: No Hx Family Neuromuscular Disorders: No Hx Family Neurologic Disorders: No Hx Family HEENT Disorders: No Hx Family Autoimmune Disorders: No Brother Hx Family Cardiac Disorders: Yes (CAD) Medications and Allergies Pantoprazole Sodium [Protonix] 40 mg PO DAILY 01/06/16 [History] Primidone [Mysoline] 250 mg PO BID 01/06/16 [History] diazePAM [Valium] 5 mg PO DAILY PRN 01/06/16 [History] Rivaroxaban [Xarelto] 15 mg PO DAILY 03/08/17 [History] Celecoxib [Celebrex] 200 mg PO BID 08/08/17 [History] Furosemide [Lasix] 20 mg PO DAILY 08/08/17 [History] Ropinirole HCl [Requip] 3 mg PO TID PRN 08/27/17 [History] Phenytoin ER [Dilantin ER] 200 mg PO TID 01/30/18 [History] 3 Allergy/AdvReac Type Severity Reaction Status Date / Time Penicillins [PCN] Allergy Hives Verified 01/30/18 11:46 Sulfa (Sulfonamide Allergy Hives Verified 01/30/18 11:46 Antibiotics) Review of systems: as in HPI Oncology - Exam - Constitutional Vitals: Temp Pulse Resp BP Pulse Ox 97.8 F 71 16 127/75 97 01/31/18 07:20 01/31/18 07:20 01/31/18 07:20 01/31/18 07:20 07/05/18 07:20 General appearance: no acute distress - Head Head exam: Present: atraumatic, normal inspection - Eye Eye exam: Present: sclera anicteric - ENT ENT exam: Present: mucous membranes dry - Neck Neck exam: Present: full ROM - Respiratory Respiratory exam: Present: CTAB - Cardiovascular Cardiovascular exam: Present: +S1, +S2 - Extremities Exam Extremities exam: Present: pedal edema - Neurological Exam Neurological exam: Present: alert, CN II-XII intact, oriented X3 - Psychiatric Psychiatric exam: Present: normal mood - Skin Skin exam: Present: normal color Oncology - Results Labs: 3 01/31/18 01/31/18 01/31/18 03:10 03:10 03:10 WBC 3.8 L RBC 4.18 L Hgb 8.8 L Hct 29.0 L MCV 69.4 L MCH 21.1 L MCHC 30.3 L RDW 18.0 H Plt Count 191 MPV 8.4 L Immature Gran % 0.5 Seg Neutrophils % 60.4 Lymphocytes % 27.1 Monocytes % 7.4 Eosinophils % 4.3 Basophils % 0.3 Neutrophils # 2.3 Lymphocytes # 1.0 Monocytes # 0.3 Eosinophils # 0.2 Basophils # 0.0 Platelet Estimate Normal Polychromasia 1+ A Hypochromasia Present A Poikilocytosis 1+ A Microcytosis Present A Macrocytosis Present A Ovalocytes 1+ A PT 13.5 H INR 1.2 APTT 34.7 Sodium 137 Potassium 4.3 Chloride 105 Carbon Dioxide 25 BUN 20 Creatinine 0.80 Est GFR ( Amer) > 60 Est GFR (Non-Af Amer) > 60 BUN/Creatinine Ratio 25 Glucose 109 H Calculated Osmolality 287 Calcium 8.6 Phosphorus 4.4 Magnesium 2.3 Ferritin < 8 L CTA findings, labs reviewed Consult Discharge Plan - Plan Referrals: Aliyah Torres, SYSTEMS ADMINISTRATION ANALYST [Primary Care Provider] -
--- NOTE | 2018-01-31 13:20 | Internal Med Progress Note ---
<Reinaldo Vargas - Last Filed: 01/31/18 17:16> Date of Encounter: 01/31/18 - Assessment and plan (1) Pulmonary embolism Current Visit: Yes Status: Chronic Assessment and plan: Patient had IVC filter placed 08/08/17. Has taken xarelto for around 3 years as DVT prophylaxis. Oncology consulted and recommended enoxaparin or an alternative agent. This is due to concern for interactions with his antiepileptics per Dr. Stone. The patient was not interested in enoxaparin injections. He also does not desire switching to warfarin. We will likely send home on xarelto and schedule for an oncology followup appointment. Vascular surgeon consult at patient request. Qualifiers: Pulmonary embolism type: other Chronicity: acute Acute cor pulmonale presence: without acute cor pulmonale Qualified Code(s): I26.99 - Other pulmonary embolism without acute cor pulmonale (2) Gait instability Current Visit: Yes Status: Acute Assessment and plan: chronic. care taken when moving patient. (3) Anemia Current Visit: Yes Status: Chronic Assessment and plan: We will consider transfusion based on history of dyspnea and instability gathered. JAYNA performed. No gross blood visualized. colonoscopy and EGD to be performed. Repeat CBC in one week. Qualifiers: Anemia type: iron deficiency Iron deficiency anemia type: chronic blood loss (4) Seizure disorder Current Visit: No Status: Chronic Assessment and plan: continue antiepileptics (5) DVT (deep venous thrombosis) Current Visit: Yes Status: Acute Assessment and plan: The patient already has an IVC in place. We will continue rivaroxaban. known DVT with new PE Qualifiers: DVT location: lower extremity Affected thrombotic vein of extremity: popliteal Chronicity: acute Laterality: left Qualified Code(s): I82.432 - Acute embolism and thrombosis of left popliteal vein (6) Closed traumatic nondisplaced fracture of rib Current Visit: Yes Status: Acute Assessment and plan: patient under pain control. will add pain medication if needed. will likely discharge on oxycodone 5 mg po 3-4 times daily for 3 days. (7) RLS (restless legs syndrome) Current Visit: No Status: Chronic Assessment and plan: continue ropinirole as scheduled - Subjective Interval history: HPI: Mr. De La Fuente is a 72 Yo W m with a history of epilepsy, DVT, and RLS who was admitted to the hospital after visiting the ED yesterday following a fall at home with injury to his ribs. X-ray showed a fracture of ribs 4-6 on the R. A CTA showed possible R lower lobe PE per Dr. Bradley. A venous duplex showed thrombus in the L popliteal per Dr. Tejada. Today, he complains of gait instability and pain in the L leg when walking. He also mentions an expiratory wheeze that was treated by his Nurse Practitioner provider 1 month ago with a presumed short acting beta agonist inhaler. This has not helped the wheeze which is still present. He mentions chronic bilateral foot pain present for years. He denies rib or chest pain of any sort. admits history of intermittent hemorrhoids that occasionally bleed. Denies dyspnea, abd pain, headache, orthostatic hypotensive symptoms, PND, pain with urination, change in bowel movements. - Constitutional Vitals: Temp Pulse Resp BP Pulse Ox 97.5 F L 73 18 139/70 95 01/31/18 11:21 01/31/18 11:21 01/31/18 11:21 01/31/18 11:21 01/31/18 11:21 Exam: PE general: pleasant elderly gentleman no acute distress. heart: RRR with 2/6 systolic murmur heard best over the aorta. no carotid bruits. radial pulses 2+. R dorsalis pedis 2+ but could not palpate L. Lungs: scattered low rhoncus sound on expiration. diaphragmatic excursion equal bilaterally. tactile fremitis equal bilaterally. chest: no pectus excavatum/carinatum. nontender. possible mild contusion near the area of fracture, ribs 4-6 mid-axillary line. abd: nondistended. normoactive bowel sounds with no abd bruits. no hepatosplenomegaly and nontender to palpation. no masses. JAYNA revealed no significant hemorrhoids. smooth rectal and prostate surface with no palpable masses. pink tinge seen on glove. no gross blood visualized. Internal Medicine: Result - Labs CBC & Chem 7: 01/31/18 03:10 01/31/18 03:10 Labs: Short CBC 01/31/18 Range/Units 03:10 WBC 3.8 L (4.3-11.1) K/mcL Hgb 8.8 L (12.9-16.9) g/dL Hct 29.0 L (37.5-50.1) % Plt Count 191 (140-400) K/mcL Neutrophils # 2.3 (1.6-8.9) K/mcL [facility] 01/31/18 03:10 Sodium 137 Potassium 4.3 Chloride 105 Carbon Dioxide 25 BUN 20 Creatinine 0.80 Glucose 109 H Calcium 8.6 - ABG Interpretation ABG results: PT/INR, D-dimer PT 13.5 Seconds (9.4-12.1) H 01/31/18 03:10 - VTE Documentation of Mechanical Device: Graduated compression elastic hosiery Consult Discharge Plan - Plan Referrals: Aliyah Torres, WOODEN FENCE ERECTOR [Primary Care Provider] - <Ronnie Mendoza - Last Filed: 01/31/18 18:38> Date of Encounter: 01/31/18 Time of Encounter: 08:15 - Constitutional Vitals: Temp Pulse Resp BP Pulse Ox 97.8 F 78 18 131/79 96 01/31/18 15:34 01/31/18 15:34 01/31/18 15:34 01/31/18 15:34 01/31/18 15:34 Internal Medicine: Result - Labs CBC & Chem 7: 01/31/18 03:10 01/31/18 03:10 Labs: Short CBC 01/31/18 Range/Units 03:10 WBC 3.8 L (4.3-11.1) K/mcL Hgb 8.8 L (12.9-16.9) g/dL Hct 29.0 L (37.5-50.1) % Plt Count 191 (140-400) K/mcL Neutrophils # 2.3 (1.6-8.9) K/mcL [facility] 01/31/18 03:10 Sodium 137 Potassium 4.3 Chloride 105 Carbon Dioxide 25 BUN 20 Creatinine 0.80 Glucose 109 H Calcium 8.6 - ABG Interpretation ABG results: PT/INR, D-dimer PT 13.5 Seconds (9.4-12.1) H 01/31/18 03:10 <Beau Stone - Last Filed: 01/31/18 19:02> Date of Encounter: 01/31/18 - Assessment and plan (1) Pulmonary embolism Current Visit: Yes Status: Chronic Qualifiers: Pulmonary embolism type: other Chronicity: acute Acute cor pulmonale presence: without acute cor pulmonale Qualified Code(s): I26.99 - Other pulmonary embolism without acute cor pulmonale (2) Anemia Current Visit: Yes Status: Chronic Qualifiers: Anemia type: iron deficiency Iron deficiency anemia type: chronic blood loss Qualified Code(s): D50.0 - Iron deficiency anemia secondary to blood loss (chronic) (3) Seizure disorder Current Visit: No Status: Chronic (4) RLS (restless legs syndrome) Current Visit: No Status: Chronic (5) HTN (hypertension) Current Visit: No Status: Chronic Qualifiers: Hypertension type: essential hypertension Qualified Code(s): I10 - Essential (primary) hypertension (6) Chronic deep vein thrombosis (DVT) of left lower extremity Current Visit: No Status: Chronic Qualifiers: Affected thrombotic vein of extremity: unspecified vein of extremity Qualified Code(s): I82.502 - Chronic embolism and thrombosis of unspecified deep veins of left lower extremity (7) Closed rib fracture Current Visit: Yes Status: Acute Qualifiers: Encounter type: subsequent encounter Rib fracture type: single rib Laterality: right Fracture healing: with routine healing Qualified Code(s): S22.31XD - Fracture of one rib, right side, subsequent encounter for fracture with routine healing - Constitutional Vitals: Temp Pulse Resp BP Pulse Ox 97.8 F 78 18 131/79 96 01/31/18 15:34 01/31/18 15:34 01/31/18 15:34 01/31/18 15:34 01/31/18 15:34 Internal Medicine: Result - Labs CBC & Chem 7: 01/31/18 03:10 01/31/18 03:10 Labs: Short CBC 01/31/18 Range/Units 03:10 WBC 3.8 L (4.3-11.1) K/mcL Hgb 8.8 L (12.9-16.9) g/dL Hct 29.0 L (37.5-50.1) % Plt Count 191 (140-400) K/mcL Neutrophils # 2.3 (1.6-8.9) K/mcL [facility] 01/31/18 03:10 Sodium 137 Potassium 4.3 Chloride 105 Carbon Dioxide 25 BUN 20 Creatinine 0.80 Glucose 109 H Calcium 8.6 - ABG Interpretation ABG results: PT/INR, D-dimer PT 13.5 Seconds (9.4-12.1) H 01/31/18 03:10 - Attending Attestation I examined this patient and my medical decision-making was reviewed with the Resident Physician on 01/31/18. I agree with the documented findings, disposition and treatment plan as described except to the extent set forth below. Mr De La Fuente is currently admitted for acute PE. He has developed anemia as well. He remains moderate to high risk due to potential for worsening clinical status. Mr De La Fuente is breathing somewhat better. No fever or chills. Some cough. No GI issues. Exam alert Comfortable Mucus membranes dry Heart reg Lungs decreased I/P 1. PE 2. DVT Further diagnoses and plan as above.
[2018-01-31] MEDS ORDERED: SODIUM CHLORIDE/NAHCO3/KCL/PEG 4,000 ML SOLN.RECON PO ONE (15:31)
--- NOTE | 2018-01-31 15:51 | Gastroenterology Consult Note ---
Date of Encounter: 01/31/18 Time of Encounter: 15:47 - Assessment and plan (1) GI bleed Current Visit: Yes Status: Acute Assessment and plan: - Patient reports multiple Blood per rectum for some time, with recent worsening - H/H decreased at 8.8/29.0. Baseline hemoglobin varying from 9-12 - Patient is hemodynamically stable - No recent colonoscopy per chart review, patient states his most recent was approximately 10-15 years ago - Patient has been told he has hemorrhoids in the past but it does not bother him - Bright red blood noticed per digital rectal exam from primary team Plan - Anticipate colonoscopy tomorrow - Nothing by mouth at midnight, clear liquid diet this evening with no red dyes - Bowel prep this evening - This was discussed with patient and he is agreeable to proceed. Further plan of management as discussed with Dr. Joe Qualifiers: GI bleed type/associated pathology: unspecified gastrointestinal hemorrhage type Qualified Code(s): K92.2 - Gastrointestinal hemorrhage, unspecified (2) Anemia Current Visit: Yes Status: Chronic Assessment and plan: - Acute on chronic likely secondary to GI bleed as above - H/H stable at 8.8/29.0. Noted microcytic with high RDW, likely iron deficient. - DVT/PE despite anticoagulation - Oncology on board, appreciate recommendations - Transfuse as necessary per primary team Qualifiers: Anemia type: iron deficiency Iron deficiency anemia type: chronic blood loss Qualified Code(s): D50.0 - Iron deficiency anemia secondary to blood loss (chronic) (3) GERD (gastroesophageal reflux disease) Current Visit: Yes Status: Chronic Assessment and plan: - Well controlled on PO meds. Qualifiers: Esophagitis presence: without esophagitis Qualified Code(s): K21.9 - Gastro -esophageal reflux disease without esophagitis - Time Spent With Patient Total time spent is greater than 50% in coordination of care (as documented) at patient's floor/unit and/or counseling patient: GI History of Present Illness - Data of Consult Patient: new to practice Consult date: 01/31/18 Requesting Physician: Beau Stone DO - Consult Narrative Reason for consult: GI bleed History of present illness: Mr. De La uFente is a 72 year old male with past medical history of arthritis, chronic DVT in the left lower extremity with IVC filter, GERD, hyperlipidemia, seizures presented to emergency department with the complaint of right-sided chest pain. Throughout his workup in the emergency department he was found to have multiple rib fractures on the right secondary to a fall as well as a subacute pulmonary embolism despite home medication of Xarelto 15 mg twice a day. Oncology has been consulted for further anticoagulation management. Gastroenterology was consulted due to anemia as well as bright red blood per rectum. Patient states that he does experience bright red blood with bowel movements every once in a while. He states that the amount varies however most the time it does coat his stool and is bright red. Denies any symptoms of melena, abdominal pain, nausea, vomiting, dizziness, lightheadedness. He states his last colonoscopy was approximately 10-15 years ago which her stay was normal at that time. He is never had any issues with bleeding while on anticoagulation. Colonoscopy: none to review Past Med Surg Social Fam HX - Past Medical History Medical history: arthritis, DVT (chronic; left lower extremity), GERD, hyperlipidemia, seizures (Epilepsy), other (Restless Legs Syndrome; Lower extremity edema) Additional medical history: dvt to right leg currently on xarelto. rls. IVC FILTER Psychiatric history: anxiety - Past Surgical History Surgical History: orthopedic, other (bilateral hip replacement 2015; bilatera wrist repair 2015; right knee replacement 08/27/2017) Additional surgical history: r hip replacement. l hip replacement. r wrist surgery - Social History Smoking Status: Never smoker Smokeless Tobacco Status: No Alcohol use: none Drug use: none - Family History Mother Age at : 54 Cause of : heart problems Hx Family Cardiac Disorders: Yes (htn) Hx Family Respiratory Disorders: No Father Adopted: No Family Member Ethnicity: Non- Living Status: Age at : 87 Cause of : heart problems Hx Family Cardiac Disorders: Yes Hx Family Respiratory Disorders: No Hx Family Cancer: No Hx Family GI Disorders: Yes (PUDx) Hx Family Endocrine Disorder: No Hx Family Neuromuscular Disorders: No Hx Family Neurologic Disorders: No Hx Family HEENT Disorders: No Hx Family Autoimmune Disorders: No Brother Hx Family Cardiac Disorders: Yes (CAD) - Gastrointestinal Gastrointestinal: Present: hematochezia. Absent: abdominal pain, bloating, change in bowel habits, coffee ground emesis, constipation, diarrhea, dyspepsia , hematemesis, melena, nausea, vomiting - Constitutional Constitutional: no anorexia, no fatigue - Cardiovascular Cardiovascular ROS: Present: chest pain (Musculoskeletal secondary to fall) - Respiratory Respiratory IM: Absent: cough, dyspnea - Integumentary Integumentary GI: Absent: rash - Constitutional Vitals: Temp Pulse Resp BP Pulse Ox 97.8 F 78 18 131/79 96 01/31/18 15:34 01/31/18 15:34 01/31/18 15:34 01/31/18 15:34 01/31/18 15:34 Exam: Gen.: Vitals noted. No acute distress. AAOx3 HEENT: PERRL/EOMI, oropharynx clear, Normocephalic, atraumatic, MMM Cardiac: RRR, no murmur, +S1/S2 Pulmonary: CTA bilaterally, no wheezes, rales or rhonchi, equal chest expansion Abdomen: soft, nontender, BS noted, no guarding, no rebound. Extremities: no BLE edema, nontender calf, no cyanosis or clubbing Neuro: A&Ox3, moves all extremities, no focal deficits Skin: Sparse ecchymosis present Psych: Appropriate mood and behavior Results - Labs CBC & Chem 7: 01/31/18 03:10 01/31/18 03:10 Labs: Last Result Calcium 8.6 mg/dL (8.6-10.3) 01/31/18 03:10 Iron 15 mcg/dL (65-175) L 01/30/18 09:41 % Saturation 3 % (20-55) L 01/30/18 09:41 Transferrin 328 mg/dL (203-362) 01/30/18 09:41 Ferritin < 8 ng/mL (20-250) L 01/31/18 03:10 Troponin I < 0.03 ng/mL (< 0.04) 01/30/18 09:41 Entire Visit Hgb 8.8 g/dL (12.9-16.9) L 01/31/18 03:10 Hct 29.0 % (37.5-50.1) L 01/31/18 03:10 PT 13.5 Seconds (9.4-12.1) H 01/31/18 03:10 Ferritin < 8 ng/mL (20-250) L 01/31/18 03:10 Total Bilirubin 0.2 mg/dL (0.3-1.0) L 01/30/18 09:41 AST 16 Units/L (13-39) 01/30/18 09:41 ALT 12 Units/L (7-52) 01/30/18 09:41 Lipase 27 Units/L (11-82) 01/30/18 09:41 - ABG ABG results: PT/INR, D-dimer PT 13.5 Seconds (9.4-12.1) H 01/31/18 03:10 Consult Discharge Plan - Plan Referrals: Aliyah Torres, STACKER ATTENDANT [Primary Care Provider] -
--- NOTE | 2018-01-31 16:15 | Vascular/Endovasc Consult Note ---
Date of Encounter: 01/31/18 Time of Encounter: 14:30 Assessment and Plan (1) Pulmonary embolism Current Visit: Yes Status: Chronic The pathophysiology and natural history of polio emboli and deep venous thrombosis was discussed with the patient and all questions were answered. The patient is a history of a left lower extremity deep venous thrombosis. He is chronically anticoagulant Xarelto. Despite this he has developed a pulmonary embolus. The pulmonary embolus is small and nonocclusive in the right lower lobe. He currently appears to be asymptomatic. The patient already has an inferior vena cava filter in place. There is no indication for thrombolytic therapy at this time. It is recommended that his filter remained in place. It was explained to the patient that small pulmonary emboli cannot get past inferior vena cava filters. Oncology was counseled regarding anticoagulation recommendations. He may follow-up with vascular surgery as needed. Qualifiers: Pulmonary embolism type: other Chronicity: acute Acute cor pulmonale presence: without acute cor pulmonale Qualified Code(s): I26.99 - Other pulmonary embolism without acute cor pulmonale (2) Chronic deep vein thrombosis (DVT) of left lower extremity Current Visit: No Status: Chronic Qualifiers: Affected thrombotic vein of extremity: unspecified vein of extremity Qualified Code(s): I82.502 - Chronic embolism and thrombosis of unspecified deep veins of left lower extremity (3) HLD (hyperlipidemia) Current Visit: No Status: Chronic Qualifiers: Hyperlipidemia type: unspecified Qualified Code(s): E78.5 - Hyperlipidemia , unspecified (4) HTN (hypertension) Current Visit: No Status: Chronic Qualifiers: Hypertension type: essential hypertension Qualified Code(s): I10 - Essential (primary) hypertension - History of Present Illness Consult date: 01/31/18 Requesting physician: Beau Stone Chief complaint: Pulmonary embolus History of present illness: Mr. De La Fuente is a 72 year old male with history of hypertension hyperlipidemia and deep venous thrombosis. The patient originally developed a deep venous thrombosis of the left superficial femoral and popliteal vein in May 2016 after hip fracture. His been chronically antiquated with Xarelto. She had an inferior vena cava filter placed earlier this year prior to total knee replacement. He remains in place. The patient presented to [facility] with acute onset chest discomfort. He reports he recently sustained an injury to his ribs. As part of his evaluation he underwent a CT scan of the chest was found small nonocclusive emboli in the right lower lobe of his lung. The patient currently reports he is feeling much better he denies any significant chest pain. He also denies shortness of breath. Past Med Surg Social Fam HX - Past Medical History Medical history: arthritis, DVT (chronic; left lower extremity), GERD, hyperlipidemia, seizures (Epilepsy), other (Restless Legs Syndrome; Lower extremity edema) Additional medical history: dvt to right leg currently on xarelto. rls. IVC FILTER Psychiatric history: anxiety - Past Surgical History Surgical History: orthopedic, other (bilateral hip replacement 2015; bilatera wrist repair 2015; right knee replacement 08/27/2017) Additional surgical history: r hip replacement. l hip replacement. r wrist surgery - Social History Smoking Status: Never smoker Smokeless Tobacco Status: No Alcohol use: none Drug use: none - Family History Mother Age at : 54 Cause of : heart problems Hx Family Cardiac Disorders: Yes (htn) Hx Family Respiratory Disorders: No Father Adopted: No Family Member Ethnicity: Non- Living Status: Age at : 87 Cause of : heart problems Hx Family Cardiac Disorders: Yes Hx Family Respiratory Disorders: No Hx Family Cancer: No Hx Family GI Disorders: Yes (PUDx) Hx Family Endocrine Disorder: No Hx Family Neuromuscular Disorders: No Hx Family Neurologic Disorders: No Hx Family HEENT Disorders: No Hx Family Autoimmune Disorders: No Brother Hx Family Cardiac Disorders: Yes (CAD) Medications and Allergies Pantoprazole Sodium [Protonix] 40 mg PO DAILY 01/06/16 [History] Primidone [Mysoline] 250 mg PO BID 01/06/16 [History] diazePAM [Valium] 5 mg PO DAILY PRN 01/06/16 [History] Rivaroxaban [Xarelto] 15 mg PO DAILY 03/08/17 [History] Celecoxib [Celebrex] 200 mg PO BID 08/08/17 [History] Furosemide [Lasix] 20 mg PO DAILY 08/08/17 [History] Ropinirole HCl [Requip] 3 mg PO TID PRN 08/27/17 [History] Phenytoin ER [Dilantin ER] 200 mg PO TID 01/30/18 [History] 3 Allergy/AdvReac Type Severity Reaction Status Date / Time Penicillins [PCN] Allergy Hives Verified 01/30/18 11:46 Sulfa (Sulfonamide Allergy Hives Verified 01/30/18 11:46 Antibiotics) All Systems Review: The remainder of the systems were reviewed and are negative - Constitutional Constitutional: no chills, no fever(s) - Cardiovascular Cardiovascular: no chest pain at rest, no dyspnea at rest Exam Vital Signs, Last 4 Hours Temp Pulse Resp BP Pulse Ox 01/31/18 15:34 97.8 F 78 18 131/79 96 General: Present: Conversant, No Apparent Distress HEENT: Present: Atraumatic Neck: Absent: Lymphadenopathy Cardiac: Present: Reg Rate and Rhythm Lungs: Present: Normal Breath Sounds Neuro: Present: Alert and responsive Abdomen: Present: Soft, Non-tender Vascular: Present: Normal capillary refill, Pulse, normal. Absent: Cyanosis, Edema Skin: Present: No rashes noted on visualized skin Musculoskeletal: Present: No Chest Wall Tenderness (Right-sided rib tenderness with ecchymosis present) Consult Discharge Plan - Plan Referrals: Aliyah Torres, [employer] INSURANCE CLAIMS ADJUSTER [Primary Care Provider] -
[2018-02-01 01:08] LABS: Basophils % 0.3 %; Eosinophils # 0.1 K/mcL (0.0-0.6); Eosinophils % 1.3 %; Hematocrit 30.4 % (37.5-50.1); Immature Granulocytes % 0.2 % (0-4); Lymphocytes # 0.8 K/mcL (0.6-4.6); Lymphocytes % 12.5 %; Mean Corpuscular HGB Conc 29.6 g/dL (31.6-35.5); Mean Corpuscular Hemoglobin 20.3 pg (28.0-33.3); Mean Corpuscular Volume 68.5 fL (83.0-100.0); Monocytes # 0.3 K/mcL (0.0-1.3); Monocytes % 5.4 %; Neutrophils # 5.1 K/mcL (1.6-8.9); Platelet Count 211 K/mcL (140-400); Red Blood Count 4.44 M/mcL (4.19-5.50); Red Cell Distribution Width 18.2 % (11.5-14.5); Segmented Neutrophils % 80.3 %
[2018-02-01 01:24] LABS: Alanine Aminotransferase 15 Units/L (7-52); Albumin 3.9 g/dL (3.5-5.7); Albumin/Globulin Ratio 1.4 (1.1-2.2); Alkaline Phosphatase 149 Units/L (34-104); Aspartate Amino Transferase 21 Units/L (13-39); BUN/Creatinine Ratio 25 (6-26); Bilirubin,Total 0.3 mg/dL (0.3-1.0); Blood Urea Nitrogen 23 mg/dL (8-23); Calcium 8.6 mg/dL (8.6-10.3); Carbon Dioxide 22 mEq/L (23-29); Chloride 103 mEq/L (98-107); Globulin 2.8 g/dL (2.4-3.5); Glucose 148 mg/dL (70-105); Osmolality,Calculated 284 (280-300); Potassium 4.5 mEq/L (3.5-5.1); Sodium 134 mEq/L (136-145); Total Protein 6.7 g/dL (6.4-8.9); eGFR For African Americans > 60 (> 60); eGFR For Non-African Americans > 60 (> 60)
[2018-02-01 01:31] LABS: Platelet Estimate Normal (Normal)
[2018-02-01 01:32] LABS: Anisocytosis 1+ (Not Present); Hypochromasia Present (Not Present); Microcytosis Present (Not Present)
[2018-02-01 04:46] LABS: Magnesium 2.2 mg/dL (1.6-2.6)
--- NOTE | 2018-02-01 07:29 | Anesthesia Evaluation PreOp ---
Date of Encounter: 02/01/18 Time of Encounter: 07:27 - Past History Planned Operation: EGD/Colonoscopy Cardiac History: Other (S/P PE) Pulmonary History: Denies Any Significant HX ADVENTURE THERAPIST History: Seizures (stable being medically treated), Other (RLS) Other Medical History: GERD, Other (H/O DVT's S/P IVC filter) Anesthesia History: No Prior Anesthetic Complications, Past Anesthesia Alcohol Use: none Drug use: none Medications and Allergies Pantoprazole Sodium [Protonix] 40 mg PO DAILY 01/06/16 [History] Primidone [Mysoline] 250 mg PO BID 01/06/16 [History] diazePAM [Valium] 5 mg PO DAILY PRN 01/06/16 [History] Rivaroxaban [Xarelto] 15 mg PO DAILY 03/08/17 [History] Celecoxib [Celebrex] 200 mg PO BID 08/08/17 [History] Furosemide [Lasix] 20 mg PO DAILY 08/08/17 [History] Ropinirole HCl [Requip] 3 mg PO TID PRN 08/27/17 [History] Phenytoin ER [Dilantin ER] 200 mg PO TID 01/30/18 [History] 3 Allergy/AdvReac Type Severity Reaction Status Date / Time Penicillins [PCN] Allergy Hives Verified 01/30/18 11:46 Sulfa (Sulfonamide Allergy Hives Verified 01/30/18 11:46 Antibiotics) - Meds/Allergy Pre-op Review Medications Reviewed: Yes Allergies Reviewed: Yes Beta Blockers on Current Med List: No Anesthesia Results - Labs 02/01/18 00:49 02/01/18 00:49 - Imaging EKG: report reviewed (08/06/2017 SINUS RHYTHM WITH FIRST DEGREE AV BLOCK INFERIOR MYOCARDIAL INFARCTION, PROBABLY OLD) Additional studies: 01/08/2016 Echo Impressions: Hyperdynamic LV systolic function, EF >70%. Not all myocardial segments were well visualized secondary to clinical status and tachycardia. Hyperdynamic RV function. Atria not well visualized. No significant valve dysfunction. Mild pulmonary hypertension. The IVC is not dilated. Trivial pericardial effusion without evidence for tamponade physiology. Anesthesia Exam Vital Signs/O2 Sat, Most Current Temp Pulse Resp BP Pulse Ox 97.8 F 94 16 154/77 97 02/01/18 07:14 02/01/18 07:14 02/01/18 07:14 02/01/18 07:14 02/01/18 07:14 Height: 5'10"/1.78m Weight: 210 lbs/95.6 kg NPO (# of Hours): 8 Pain Scale: 0 Pain Scale Used: Numeric (1 - 10) - HEENT Pupil (Motor): EOMI Mallampati: II Teeth: Normal Oral Opening: Greater than 3 - ADVENTURE THERAPIST LOC: Oriented ADVENTURE THERAPIST Motor: Normal RUE, Normal LUE, Normal RLE, Normal LLE, Normal Face ADVENTURE THERAPIST Sensory: Normal: RUE, LUE, RLE, LLE, Face - Cardiac Rhythm: Regular Murmur: Systolic - Pulmonary Breath Sounds: bilateral Clear Respiratory Effort: Symmetrical Anesthesia Assess/Plan ASA Score: 3 Modified [place] Scale for Level of Consciousness: Cooperative, oriented, and tranquil Anesthetic Plan: MAC Monitoring Plan: Standard Monitors
[2018-02-01] MEDS ORDERED: Tetracaine/Benzocaine/Butamben 200MG/SPRAY (100SPY/BOT) MM ONE (09:16)
[2018-02-01] MEDS ORDERED: Simethicone 40 MG/0.6 ML MLS IR ONE (09:16)
[2018-02-01] MEDS: 0.9 % Sodium Chloride 1,000 ML IVC SCH ×2 (09:17→11:43)
--- NOTE | 2018-02-01 09:50 | Electrocardiograph Report ---
[place] [id number] Test Date: 2018-01-30 Pat Name: Sumeet De La Fuente Department: [id number] Room: [id number] Gender: M Roll Capper: : [id number] Requested By: [id number] Order Number: [id number] Reading MD: Nader Kruger Measurements Intervals [place] Rate: 95 P: 56 NC: 229 QRS: -65 QRSD: 151 T: 90 QT: 386 QTc: 439 Interpretive Statements SINUS RHYTHM WITH FIRST DEGREE AV BLOCK MARKED LEFT AXIS DEVIATION LEFT BUNDLE BRANCH BLOCK Electronically Signed On 02-01-2018 9:48:43 EDT by Nader Kruger
--- NOTE | 2018-02-01 09:57 | Internal Med Progress Note ---
Date of Encounter: 02/01/18 - Assessment and plan (1) Pulmonary embolism Current Visit: Yes Status: Chronic Assessment and plan: patient had IVC filter placed 08/08/17. Vascular surgeon consulted and reported no need for additional anticoagulation therapy. continue xarelto The patient refused oncology's recommendation of switching to enoxaparin d/t possible interaction between xarelto and antiepileptics Qualifiers: Pulmonary embolism type: other Chronicity: acute Acute cor pulmonale presence: without acute cor pulmonale Qualified Code(s): I26.99 - Other pulmonary embolism without acute cor pulmonale (2) Gait instability Current Visit: Yes Status: Acute Assessment and plan: chronic. care taken when moving patient (3) Anemia Current Visit: Yes Status: Chronic Assessment and plan: EGD and colonoscopy report by Dr. Joe revealed repeat CBC in one week Qualifiers: Anemia type: iron deficiency Iron deficiency anemia type: chronic blood loss Qualified Code(s): D50.0 - Iron deficiency anemia secondary to blood loss (chronic) (4) Seizure disorder Current Visit: No Status: Chronic Assessment and plan: continue antiepileptic regimen (5) DVT (deep venous thrombosis) Current Visit: Yes Status: Acute Assessment and plan: IVC in place continue rivaroxaban known DVT with new PE Qualifiers: DVT location: lower extremity Affected thrombotic vein of extremity: popliteal Chronicity: acute Laterality: left Qualified Code(s): I82.432 - Acute embolism and thrombosis of left popliteal vein (6) Closed traumatic nondisplaced fracture of rib Current Visit: Yes Status: Acute Assessment and plan: continue pain meds as needed. will likely discharge on oxycodone 5 mg po 3-4 times daily for 3 days (7) RLS (restless legs syndrome) Current Visit: No Status: Chronic - Time Spent With Patient continue scheduled ropinerole - Subjective Interval history: HPI: Mr. De La Fuente is a 72 Yo W m with a history of epilepsy, DVT, and RLS who was admitted to the hospital after visiting the ED yesterday following a fall at home with injury to his ribs. X-ray showed a fracture of ribs 4-6 on the R. A CTA showed possible R lower lobe PE per Dr. Bradley. A venous duplex showed thrombus in the L popliteal per Dr. Tejada. Today, he complains of gait instability and pain in the L leg when walking. He also mentions an expiratory wheeze that was treated by his Nurse Practitioner provider 1 month ago with a presumed short acting beta agonist inhaler. This has not helped the wheeze which is still present. He mentions chronic bilateral foot pain present for years. He denies rib or chest pain of any sort. admits history of intermittent hemorrhoids that occasionally bleed. Denies dyspnea, abd pain, headache, orthostatic hypotensive symptoms, PND, pain with urination, change in bowel movements. - Constitutional Vitals: Temp Pulse Resp BP Pulse Ox 97.5 F L 88 18 172/99 98 02/01/18 07:44 02/01/18 07:44 02/01/18 07:44 02/01/18 07:44 02/01/18 07:44 Internal Medicine: Result - Labs CBC & Chem 7: 02/01/18 00:49 02/01/18 00:49 Labs: Short CBC 02/01/18 Range/Units 00:49 WBC 6.3 D (4.3-11.1) K/mcL Hgb 9.0 L (12.9-16.9) g/dL Hct 30.4 L (37.5-50.1) % Plt Count 211 (140-400) K/mcL Neutrophils # 5.1 (1.6-8.9) K/mcL BMP 02/01/18 00:49 Sodium 134 L Potassium 4.5 Chloride 103 Carbon Dioxide 22 L BUN 23 Creatinine 0.91 Glucose 148 H Calcium 8.6 Liver Function 02/01/18 Range/Units 00:49 Total Bilirubin 0.3 (0.3-1.0) mg/dL AST 21 (13-39) Units/L ALT 15 (7-52) Units/L Alkaline Phosphatase 149 H (34-104) Units/L Albumin 3.9 (3.5-5.7) g/dL - ABG Interpretation ABG results: PT/INR, D-dimer PT 13.5 Seconds (9.4-12.1) H 01/31/18 03:10 - VTE Documentation of Mechanical Device: Graduated compression elastic hosiery Consult Discharge Plan - Plan Referrals: Aliyah Torres, ZIYAD [Primary Care Provider] -
--- NOTE | 2018-02-01 10:33 | Discharge Summary ---
<Ronnie Mendoza - Last Filed: 02/01/18 10:41> Date of Encounter: 02/01/18 Hospital course: Mr. De La Fuente is a 72 year old male - Time Spent with Patient Total time spent providing and/or coordinating discharge services: - Discharge Medications Prescriptions: Ferrous Sulfate 325 mg PO DAILY@0800 #30 tablet Rivaroxaban [Xarelto] 15 mg PO BID #60 tablet Home Medications: Pantoprazole Sodium [Protonix] 40 mg PO DAILY 01/06/16 [History] Primidone [Mysoline] 250 mg PO BID 01/06/16 [History] diazePAM [Valium] 5 mg PO DAILY PRN 01/06/16 [History] Rivaroxaban [Xarelto] 15 mg PO DAILY 03/08/17 [History] Furosemide [Lasix] 20 mg PO DAILY 08/08/17 [History] Ropinirole HCl [Requip] 3 mg PO TID PRN 08/27/17 [History] Phenytoin ER [Dilantin ER] 200 mg PO TID 01/30/18 [History] Ferrous Sulfate 325 mg PO DAILY@0800 #30 tablet 02/01/18 [Rx] Rivaroxaban [Xarelto] 15 mg PO BID #60 tablet 02/01/18 [Rx] Allergies/Adverse Reactions: 3 Allergy/AdvReac Type Severity Reaction Status Date / Time Penicillins [PCN] Allergy Hives Verified 01/30/18 11:46 Sulfa (Sulfonamide Allergy Hives Verified 01/30/18 11:46 Antibiotics) Date of admission: 01/30/18 14:27 Primary care physician: Aliyah Torres CNP Consults: 01/31/18 15:47 Consult to Gastroenterology [CONS] Routine Consulting Provider: Gastroenterology [place] Reason for Consult: GI bleed Call Completed: Yes 01/31/18 15:50 Consult to Vascular Surgery [CONS] Routine Consulting Provider: Vascular Surgery [place] Reason for Consult: PE in patient with IVC filter Call Completed: Yes - Constitutional Vitals: Temp Pulse Resp BP Pulse Ox 97.5 F L 79 16 147/81 100 02/01/18 09:45 02/01/18 09:45 02/01/18 09:45 02/01/18 09:45 02/01/18 09:45 - Patient Status Disposition: Home, Self-Care Condition: Fair - Discharge Instructions Instructions: Iron Supplements (By mouth), Rivaroxaban (By mouth), Pulmonary Embolism (DC), Pulmonary Embolism (GEN), Iron Rich Diet (DC), Iron Rich Diet ( GEN), Deep Venous Thrombosis (DC), Deep Venous Thrombosis (GEN), Abdominal Aortic Aneurysm (DC), Abdominal Aortic Aneurysm (GEN), Iron Deficiency Anemia ( DC), Iron Deficiency Anemia (GEN), Fall Prevention for Older Adults (GEN), Epilepsy (DC), Epilepsy (GEN), Non-epileptic Seizures (DC), Non-epileptic Seizures (GEN), Fall Prevention (DC), Fall Prevention (GEN), Fall Prevention, Hearing Stenographer (GEN), Fall Prevention for the Older Adult, Hearing Stenographer (GEN ) Follow Up With: Aliyah Torres CNP [Primary Care Provider] - (apt.requested ) Additional Instructions: continue prescribed dose of requip. you can take over the counter magnesium if desired. Continue your other medications as usual. follow up in one week to your primary care physician <Reinaldo Vargas - Last Filed: 02/01/18 17:13> - NOTES TO OUTPATIENT PROVIDER Notes to Outpatient Provider: Mr. De La Fuente is a 72 Yo m with history of epilepsy, DVT, anemia, and RLS. He was seen in the ED for multiple rib fractures following a fall. He was found to have a DVT, new PE, and continued microcytic anemia as well as RLS. We will discharge on xarelto, ferrous sulfate, ropinerole , and opioids. Date of Encounter: 02/01/18 Time of Encounter: 10:00 - Discharge Diagnosis (1) Pulmonary embolism Priority: Primary Status: Chronic Comments: discharge with continued xarelto. patient refused oncology's recommendation of switch to enoxaparin d/t possible interaction between xarelto and antiepileptics perkins checked savaysa and decided to defer to outpatient Qualifiers: Pulmonary embolism type: other Chronicity: acute Acute cor pulmonale presence: without acute cor pulmonale Qualified Code(s): I26.99 - Other pulmonary embolism without acute cor pulmonale (2) Gait instability Priority: Secondary Status: Acute Comments: PT/OT consult upon discharge (3) Anemia Priority: Secondary Status: Chronic Comments: EGD and colonscopy by Dr. Joe failed to reveal cause of anemia. discharge on ferrous sulfate. CBC should be repeated in one week Qualifiers: Anemia type: iron deficiency Iron deficiency anemia type: chronic blood loss Qualified Code(s): D50.0 - Iron deficiency anemia secondary to blood loss (chronic) (4) Seizure disorder Priority: Secondary Status: Chronic Comments: discharge on antiepileptic regimen (5) DVT (deep venous thrombosis) Priority: Secondary Status: Acute Comments: IVC will be left in place discharge on rivaroxaban known DVT with new PE gregorio henley decided to defer to outpatient Qualifiers: DVT location: lower extremity Affected thrombotic vein of extremity: popliteal Chronicity: acute Laterality: left Qualified Code(s): I82.432 - Acute embolism and thrombosis of left popliteal vein (6) Closed traumatic nondisplaced fracture of rib Priority: Secondary Status: Acute Comments: discharge on oxycodone 5 mg po 3-4 times daily for 3 days (7) RLS (restless legs syndrome) Priority: Secondary Status: Chronic Comments: discharge on scheduled dose of ropinerole Hospital course: HPI: Mr. De La Fuente is a 72 Yo W m with a history of epilepsy, DVT, and RLS who was admitted to the hospital after visiting the ED following a fall at home with injury to his ribs. X-ray showed a fracture of ribs 4-6 on the R. A CTA showed possible R lower lobe PE per Dr. Bradley. A venous duplex showed thrombus in the L popliteal per Dr. Tejada. He was found to be anemic. Colonoscopy by Dr. Joe showed 5 mm polyp which was not excised due to bleeding risk. he reports difficult visualization due to stool. EGD by Dr. Joe reported and failed to show source of anemia. He has complained of a wheeze that began 1 month ago for which he is being treated on an outpatient basis with a presumed short acting beta agonist inhaler which he reports has not helped much. We treated his PE and DVT with continued xarelto and will discharge him on this. We treated his rib fracture with opioids and plan to discharge on oxycodone 5 mg po 3-4 times daily for 3 days. We treated his RLS with scheduled doses of ropinerole to be continued at home. continue home anti-epileptic regimen Anemia will be treated with ferrous sulfate 6 minute walk test non-concerning. patient will not need home oxygen. - Time Spent with Patient Total time spent providing and/or coordinating discharge services: Date of admission: 01/30/18 14:27 Primary care physician: Aliyah Torres CNP Consults: 01/31/18 15:47 Consult to Gastroenterology [CONS] Routine Consulting Provider: Gastroenterology [place] Reason for Consult: GI bleed Call Completed: Yes 01/31/18 15:50 Consult to Vascular Surgery [CONS] Routine Consulting Provider: Vascular Surgery [place] Reason for Consult: PE in patient with IVC filter Call Completed: Yes - Constitutional Vitals: Temp Pulse Resp BP Pulse Ox 97.5 F L 79 16 147/81 100 02/01/18 09:45 02/01/18 09:45 02/01/18 09:45 02/01/18 09:45 02/01/18 09:45 Exam: Chest: no pectus excavatum/carinatum. nontender. heart: RRR with 2/6 systolic murmur heard best over aortic post. no JVD or carotid bruit. no abd bruit. lungs: low rhonchus sound on expiration throughout. MSK: lower Ext edema - Patient Status Overall status at discharge: patient is progressing back to baseline - Diet and Activity Activity: increase activity as tolerated Diet: regular diet (continue prescribed dose of requip. you can take over the counter magnesium if desired. Continue your other medications as usual. follow up in one week to your primary care physician) - VTE Documentation of Mechanical Device: Graduated compression elastic hosiery <Beau Stone - Last Filed: 02/01/18 18:33> Date of Encounter: 02/01/18 - Discharge Diagnosis (1) Pulmonary embolism Status: Chronic Qualifiers: Pulmonary embolism type: other Chronicity: acute Acute cor pulmonale presence: without acute cor pulmonale Qualified Code(s): I26.99 - Other pulmonary embolism without acute cor pulmonale (2) Anemia Status: Chronic Qualifiers: Anemia type: iron deficiency Iron deficiency anemia type: chronic blood loss Qualified Code(s): D50.0 - Iron deficiency anemia secondary to blood loss (chronic) (3) Seizure disorder Status: Chronic (4) RLS (restless legs syndrome) Status: Chronic (5) HTN (hypertension) Status: Chronic Qualifiers: Hypertension type: essential hypertension Qualified Code(s): I10 - Essential (primary) hypertension (6) Chronic deep vein thrombosis (DVT) of left lower extremity Status: Chronic Qualifiers: Affected thrombotic vein of extremity: unspecified vein of extremity Qualified Code(s): I82.502 - Chronic embolism and thrombosis of unspecified deep veins of left lower extremity (7) Closed rib fracture Status: Acute Qualifiers: Encounter type: subsequent encounter Rib fracture type: single rib Laterality: right Fracture healing: with routine healing Qualified Code(s): S22.31XD - Fracture of one rib, right side, subsequent encounter for fracture with routine healing Hospital course: Mr. De La Fuente is a 72 year old male - Time Spent with Patient Total time spent providing and/or coordinating discharge services: 38min Date of admission: 01/30/18 14:27 Primary care physician: Aliyah Torres CNP Consults: 01/31/18 15:47 Consult to Gastroenterology [CONS] Routine Consulting Provider: Gastroenterology [place] Reason for Consult: GI bleed Call Completed: Yes 01/31/18 15:50 Consult to Vascular Surgery [CONS] Routine Consulting Provider: Vascular Surgery [place] Reason for Consult: PE in patient with IVC filter Call Completed: Yes Discharging clinician: Ronnie Mendoza Anticipated date of discharge: 02/01/18 - Constitutional Vitals: Temp Pulse Resp BP Pulse Ox 97.8 F 80 20 147/81 99 02/01/18 11:45 02/01/18 12:02 02/01/18 12:02 02/01/18 12:02 02/01/18 12:02 - Attending Attestation I examined this patient and my medical decision-making was reviewed with the Resident Physician on 02/01/18. I agree with the documented findings, disposition and treatment plan as described except to the extent set forth below. Mr De La Fuente has been admitted for acute PE. He has been seen by hematology and xarelto increased. He had some anemia and was seen by GI and had endoscopy today with no acute bleeding. At this time he is afebrile and ready for discharge home. Exam alert Comfortable Mucus membranes dry Heart reg No wheeze Plan D/C home today and follow up with PCP and hematology.
[2018-02-01] MEDS: *HR* Rivaroxaban 15 MG TABLET PO SCH (11:33)
[2018-02-01] MEDS: diazePAM 5 MG TABLET PO PRN (11:33)
[2018-02-01] MEDS: Furosemide 20 MG TABLET PO SCH (11:33)
[2018-02-01 12:05] VITALS: BP 147/81
--- NOTE | 2018-02-01 17:46 | Electrocardiograph Report ---
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
== END 2018-02-01 15:43 | disposition home or self-care (01) | DRG 176 ==
LOC: 2NENU 09:29 → EMEROO 09:29 → 2NENU 13:33 → SUATTDRO 14:27
PROVIDERS: ADMIT Student in an Organized Health Care Education/Training Program; ATTEND Internal Medicine

== ENCOUNTER 2018-04-05 09:31 | Inpatient (IN) ==
--- NOTE | 2018-04-05 09:22 | Anesthesia Evaluation PreOp ---
Date of Encounter: 04/05/18 Time of Encounter: 10:55 - Past History Planned Operation: Left Total Shoulder Replacement Cardiac History: Other (ascending aortic aneurysm--stable 4cm by CTA on 01/30/2018 , H/O DVT RLE with PE 01/2018, S/P IVC filter 07/2017--on Xarelto, last dose taken 04/03/2018 at 0500) Pulmonary History: Denies Any Significant HX DIRECTOR OF HUMAN RESOURCES History: Seizures (last seizure years ago, well controlled on medication), Other (RLS) Other Medical History: GERD, Other (chronic anemia) Anesthesia History: No Prior Anesthetic Complications, Past Anesthesia Alcohol Use: none Drug use: none Medications and Allergies Albuterol Sulfate [Proair Hfa] 1 inh IN PRN PRN 04/05/18 [History] Ferrous Sulfate [Iron] 325 mg PO DAILY 04/05/18 [History] Furosemide [Lasix] 20 mg PO DAILY 04/05/18 [History] [place] 5-325 mg 5 - 325 mg PO Q6HR PRN 04/05/18 [History] Pantoprazole Sodium [Protonix] 40 mg PO DAILY 04/05/18 [History] Phenytoin Sodium Extended [Dilantin] 300 mg PO BID 04/05/18 [History] Primidone [Mysoline] 250 mg PO BID 04/05/18 [History] Rivaroxaban [Xarelto] 15 mg PO BID 04/05/18 [History] Ropinirole HCl [Requip] 3 mg PO TID 04/05/18 [History] diazePAM [Valium] 5 mg PO DAILY PRN 04/05/18 [History] 3 Allergy/AdvReac Type Severity Reaction Status Date / Time Penicillins [PCN] Allergy Hives Verified 03/11/18 07:59 Sulfa (Sulfonamide Allergy Hives Verified 03/11/18 07:59 Antibiotics) - Meds/Allergy Pre-op Review Medications Reviewed: Yes Allergies Reviewed: Yes Beta Blockers on Current Med List: No Anesthesia Results - Labs 04/05/18 09:56 Laboratory Tests 01/31/18 03/27/18 03/27/18 03:10 12:41 12:41 WBC 4.6 Hgb 8.2 L Hct 27.4 L Plt Count 549 H PT 13.5 H INR 1.2 APTT 34.7 Sodium 136 Potassium 4.1 BUN 18 Creatinine 0.69 L - Imaging EKG: report reviewed (02/01/2018 SINUS RHYTHM WITH FIRST DEGREE AV BLOCK LATERAL ST-T CHANGES POSSIBLY DUE TO ISCHEMIA) Chest x-ray: other (02/09/2018 CT angio chest IMPRESSION: 1. Right lower lobe segmental nonocclusive acute-subacute pulmonary emboli. 2. Nonspecific right lower lobe basal subpleural wedge-shaped subsegmental opacity which could represent atelectasis or possible developing pulmonary infarct. 3. Aortic and coronary atherosclerosis. 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 4. Right anterior 4th through 6th subacute and acute nondisplaced rib fractures. 5. Stable posterior right upper lobe scarring with focal bronchiectasis. This is likely related to sequela of prior infectious process. 6. Redemonstration of moderate hiatal hernia. Critical results were called by Dr. González Bradley MD to Dr. Beltran On 01/30/2018 at 11:27.) Additional studies: 01/08/2016 Echo Impressions: Hyperdynamic LV systolic function, EF >70%. Not all myocardial segments were well visualized secondary to clinical status and tachycardia. Hyperdynamic RV function. Atria not well visualized. No significant valve dysfunction. Mild pulmonary hypertension. The IVC is not dilated. Trivial pericardial effusion without evidence for tamponade physiology. Anesthesia Exam - HEENT Pupil (Motor): EOMI Mallampati: II Teeth: Normal Oral Opening: Greater than 3 - DIRECTOR OF HUMAN RESOURCES LOC: Oriented DIRECTOR OF HUMAN RESOURCES Motor: Normal RUE, Normal LUE, Normal RLE, Normal LLE, Normal Face DIRECTOR OF HUMAN RESOURCES Sensory: Normal: RUE, LUE, RLE, LLE, Face - Cardiac Rhythm: Regular Murmur: Systolic - Pulmonary Breath Sounds: bilateral Clear Respiratory Effort: Symmetrical Anesthesia Assess/Plan ASA Score: 4 Modified Milly Scale for Level of Consciousness: Cooperative, oriented, and tranquil Anesthetic Plan: General, Regional Monitoring Plan: Standard Monitors Recovery Plan: PACU
[2018-04-05] MEDS ORDERED: Clindamycin 900 MG/50 ML 900 MG/50 ML IV.SOLN IVPB ONE (10:04)
[2018-04-05] MEDS ORDERED: Ringers Solution, Lactated 1,000 ML IVC SCH ×2 (10:15→13:49)
--- NOTE | 2018-04-05 10:17 | History & Physical Report ---
Date of Encounter: 04/05/18 Time of Encounter: 10:16 24 Hour HP Update - Instructions Instructions: If the History and Physical is less than 30 days old and was completed prior to A.M. admission and or procedure and has NOT been updated on calendar day of procedure please complete this update prior to performing procedure. - Update Patient reports changes in Medical Condition: No Changes in examination, assessment, or condition: No Changes in Medication: No Preop tests/diagnostics Reviewed: Yes Surgery Remains Indicated: Yes Consent for Planned Operative Procedure(s) Verified: Yes - Pre-Operative Checklist Preoperative Checklist Indicated: No Prophylactic Antibiotic Ordered: Yes Is VTE Prophylaxis Indicated?: Yes
--- NOTE | 2018-04-05 10:19 | Discharge Summary ---
Orders not resulted at time of discharge: Pending orders 04/05/18 09:56 Complete Blood Count [HEME] Stat Hemoglobin and Hematocrit [HEME] Routine Prothrombin Time INR [COAG] Stat Type and Screen [BBK] Stat Date of Encounter: 04/08/18 Time of Encounter: 07:59 - Discharge Diagnosis (1) Obesity (BMI 30.0-34.9) Priority: Secondary Status: Chronic (2) Fracture of humerus, proximal, left, closed Priority: Primary Status: Acute Qualifiers: Encounter type: subsequent encounter Fracture morphology: unspecified fracture morphology Fracture healing: with routine healing Qualified Code(s) : S42.202D - Unspecified fracture of upper end of left humerus, subsequent encounter for fracture with routine healing (3) Failed hardware Priority: Primary Status: Acute (4) DVT (deep venous thrombosis) Priority: Secondary Status: Chronic Qualifiers: DVT location: lower extremity Affected thrombotic vein of extremity: unspecified vein of extremity Chronicity: chronic Laterality: unspecified laterality Qualified Code(s): I82.509 - Chronic embolism and thrombosis of unspecified deep veins of unspecified lower extremity (5) Gait instability Priority: Secondary Status: Chronic (6) GERD (gastroesophageal reflux disease) Priority: Secondary Status: Chronic Qualifiers: Esophagitis presence: esophagitis presence not specified Qualified Code(s) : K21.9 - Gastro-esophageal reflux disease without esophagitis (7) HLD (hyperlipidemia) Priority: Secondary Status: Chronic Qualifiers: Hyperlipidemia type: unspecified Qualified Code(s): E78.5 - Hyperlipidemia , unspecified (8) HTN (hypertension) Priority: Secondary Status: Chronic Qualifiers: Hypertension type: unspecified Qualified Code(s): I10 - Essential (primary ) hypertension (9) Left bundle branch block Priority: Secondary Status: Chronic (10) Pulmonary embolism Priority: Secondary Status: Chronic Qualifiers: Pulmonary embolism type: other Chronicity: unspecified Acute cor pulmonale presence: without acute cor pulmonale Qualified Code(s): I26.99 - Other pulmonary embolism without acute cor pulmonale (11) Seizure Priority: Secondary Status: Chronic - Hospital Course Hospital course: Mr. De La Fuente is a 72 year old male Status post total shoulder replacement leftThe patient had an uneventful postoperative course. They received antibiotics and physical therapy and were discharged in stable condition. There will follow-up in the office in 2 weeks. - Time Spent with Patient Total time spent providing and/or coordinating discharge services: - Discharge Medications Home Medications: Albuterol Sulfate [Proair Hfa] 1 inh IN PRN PRN 04/05/18 [History] Doxycycline 100 mg PO BID #20 capsule 04/05/18 [Rx] Ferrous Sulfate [Iron] 325 mg PO DAILY 04/05/18 [History] Furosemide [Lasix] 20 mg PO DAILY 04/05/18 [History] OxyCODONE Immed Rel [Roxicodone 5 MG] 5 mg PO Q4HR PRN 5 Days #20 tablet [Rx] Pantoprazole Sodium [Protonix] 40 mg PO DAILY 04/05/18 [History] Phenytoin Sodium Extended [Dilantin] 300 mg PO BID 04/05/18 [History] Primidone [Mysoline] 250 mg PO BID 04/05/18 [History] Rivaroxaban [Xarelto] 15 mg PO BID 04/05/18 [History] Ropinirole HCl [Requip] 3 mg PO TID 04/05/18 [History] diazePAM [Valium] 5 mg PO DAILY PRN 04/05/18 [History] Allergies/Adverse Reactions: 3 Allergy/AdvReac Type Severity Reaction Status Date / Time Penicillins [PCN] Allergy Hives Verified 03/11/18 07:59 Sulfa (Sulfonamide Allergy Hives Verified 03/11/18 07:59 Antibiotics) Primary care physician: Aliyah Torres CNP - Patient Status Disposition: Home, Self-Care - Discharge Instructions Follow Up With: Michelle Patterson PAC [Physician [employer]] - 04/12/18 10:45 am Aliyah Torres CNP [Primary Care Provider] - Additional Instructions: Discharge Instructions: Total Shoulder Please call [facility] ([phone]), your Primary Care Physician, or report to the Emergency Room if you have any of the following symptoms: Nausea, vomiting, fever greater that 101.5, swelling, chest pain, shortness of breath, increased pain/redness/drainage/odor for your incision site, numbness/ tingling, or any other concerning symptoms. ACTIVITY: Always keep your arm in the sling. Do not raise your arm away from your body. Do not use your arm to help with getting in or out of bed. No weight bearing permitted. Only perform those exercises given to you by your therapist. Incentive Spirometer 10 times an hour. MEDICATIONS: Upon discharge resume your home medications. Take all the medications as prescribed. Take a stool softener if taking narcotic pain medications. Stool softeners are only effective if you drink enough fluids. Drink 6-8 glass of water or fluids a day, unless this is not allowed for another health problem. Despite using stool softeners, if you haven't had a bowel movement in 3 days, please switch to a gentle laxative. Gentle laxatives are sold over the counter. You should have a bowel movement within 24 hours, if not call the office. You will be discharged from the hospital with a prescription for pain medication. You are encouraged to decrease the use of narcotic pain medication as tolerated. Should you require a refill, please call the office. [facility] prescribes narcotic pain medication for only 4-6 weeks after surgery. If you require pain medication beyond this time period, you may be referred to your Primary Care Physician or to the Pain Clinic for further evaluation. Plan ahead for refills on pain medication as many narcotics either need to be picked up at the office or mailed. It is best to call 48-72 hours in advance of needing a prescription refill so you don't run out of medication. To help control the post-operative pain, you may take NSAIDs (Aleve,Advil, Motrin, Ibuprofen, Naprosyn) or Tylenol as prescribed on the bottle in addition to the pain medication. WOUND CARE: Leave the dressing on for 7-10 days. You may change the dressing if it becomes saturated greater than 50%. Do not get the dressing wet at anytime. Wash your hands with antibacterial soap, rinse and dry prior to any wound care. If you have adri the visiting nurse or rehab facility can remove the stapes 10-14 days after surgery and place steri-strips across the wound. Leave the steri-strips in place until they fall off on their own. You may let water from the shower run on top of the steri-strips. If you do not have a visiting nurse or rehab facility, you will need to return to the office at 10-14 days for the adri to be removed. If you have itching or redness around the dressing call the office. FOLLOW-UP: Please follow up with your surgeon in the orthopedic clinic, as scheduled
[2018-04-05 10:22] LABS: Basophils % 0.5 %; Eosinophils # 0.1 K/mcL (0.0-0.6); Eosinophils % 2.7 %; Hematocrit 31.8 % (37.5-50.1); Hematocrit 32.9 % (37.5-50.1); Hemoglobin 10.2 g/dL (12.9-16.9); Hemoglobin 9.6 g/dL (12.9-16.9); Immature Granulocytes % 0.5 % (0-4); Lymphocytes # 0.9 K/mcL (0.6-4.6); Lymphocytes % 20.5 %; Mean Corpuscular Hemoglobin 23.4 pg (28.0-33.3); Mean Corpuscular Volume 75.5 fL (83.0-100.0); Mean Platelet Volume 8.3 fL (9.4-12.4); Monocytes # 0.3 K/mcL (0.0-1.3); Monocytes % 7.5 %; Neutrophils # 2.8 K/mcL (1.6-8.9); Platelet Count 414 K/mcL (140-400); Red Blood Count 4.36 M/mcL (4.19-5.50); Red Cell Distribution Width 19.9 % (11.5-14.5); Segmented Neutrophils % 68.3 %
[2018-04-05 10:29] LABS: INR 1.2; Prothrombin Time 13.8 Seconds (9.4-12.1)
[2018-04-05] MEDS ORDERED: Bupivacaine/Clonidine Syringe 1 EACH SYRINGE ONE (10:57)
[2018-04-05] MEDS ORDERED: ROPIVACAINE HCL/PF 0.5% 30 ML VIAL ONE (10:57)
[2018-04-05] MEDS ORDERED: Tetracaine/PF 20 MG/2 ML AMPUL ONE (10:58)
[2018-04-05] MEDS ORDERED: *HR* Midazolam HCl 2 MG/2 ML VIAL ONE ×2 (11:16→11:32)
[2018-04-05] MEDS ORDERED: *HR* Propofol 200 MG/20 ML VIAL IVP ONE ×2 (11:16→11:32)
[2018-04-05] MEDS ORDERED: *HR* FentaNYL (PF) 100 MCG/2 ML VIAL ONE ×2 (11:16→11:32)
[2018-04-05] MEDS ORDERED: Dexamethasone 4 MG/ML VIAL ONE (11:32)
[2018-04-05] MEDS ORDERED: *HR* Rocuronium Bromide 50 MG/5 ML VIAL ONE (11:32)
[2018-04-05] MEDS ORDERED: Ondansetron 4 MG/2 ML VIAL ONE (11:32)
[2018-04-05] MEDS ORDERED: *HR* Succinylcholine 200 MG/10 ML VIAL IVP ONE (11:32)
[2018-04-05] MEDS ORDERED: Lidocaine -MPF 2% 2 ML VIAL ONE (11:32)
[2018-04-05] MEDS ORDERED: *HR* Promethazine 25 MG/ML VIAL IVP PRN (11:34)
[2018-04-05] MEDS ORDERED: *HR* Labetalol 20 MG/4 ML SYRINGE IVP PRN (11:34)
--- NOTE | 2018-04-05 11:34 | Anesthesia Procedures ---
Date of Encounter: 04/05/18 Time of Encounter: 10:27 Procedures: Anesthesia - Nerve Block Procedure Date: 04/05/18 Time: 10:27 Allergies/Adv Reactions: pcn.sulfa Pre-op Diagnosis: left shoulder reverse Surgical Procedure: left shoulder reverse Checklist: Correct Patient Identifier, Correct procedure, History checked Correct side: Left Blood Thinner: Yes (stopped two days ago ) Monitor Applied: EKG, BP, Pulse Oximetry Supplemental Oxygen via Nasal Cannula (L/min): 2 Sedation: Versed (mg): 2 Sedation: Fentanyl (mcg): 100 Indication: Post Op Analgesia Pre-op Neuro Deficits: No Block Type: Supraclavicular (icb/scp) Catheter placed: No Sterile Technique: Yes Ultrasound used: Yes Anatomy identified: Yes Visual spread of Local: Yes Neuro Stimulation: Yes Nerve Stimulator Range: 0.2 - 0.4 mA Blood on Needle Aspiration: No Smooth Injection of Local: Yes Pain with Injection of Local: No Prep: Chlorhexadine Needle: 22 x 50 mm Stimuplex Local: 0.25% Bupivicaine w/Clonidine 20 mcg/cc, Ropivacaine (0.5% ropi 8mg decadron ) Volume (cc): 50 Number of Attempts: 1 Complications: None/effective block Vitals: Vital Signs - Last 8 Hours Temp Pulse Resp BP Pulse Ox 04/05/18 11:27 77 16 126/80 97 04/05/18 11:18 82 16 116/68 95 04/05/18 10:01 98.5 F 85 18 122/76 96 Intake and Output 04/04/18 04/05/18 04/05/18 23:59 07:59 15:59 Other: Weight 97.976 kg Patient Weight 04/05/18 23:59 Weight 97.976 kg Comments: per dr. curry request
[2018-04-05] MEDS ORDERED: Ethanol\\Acetic Acid\\Na Ace\\Ben 1,000 ML IRRIG.SOLN IR ONE (11:42)
[2018-04-05] MEDS ORDERED: *HR* PHENYLEPHRINE 1,000 MCG/10 ML SYRINGE IVP ONE (12:21)
[2018-04-05] MEDS ORDERED: EPHEDrine 50 MG/ML VIAL ONE (12:29)
--- NOTE | 2018-04-05 13:19 | Orthopedic Operative Note ---
Date of procedure: 04/05/18 Pre-op diagnosis: Left proximal humerus fracture with loss of fixation Post-op diagnosis: other (Gram stain shows gram-positive cocci) Procedure: Procedure: Total Shoulder Replacment Reverse, removal of hardware left Estimated blood loss: 100 cc Hardware: Metal and polyethylene replacement: Arthrex 28 mm +2 glenoid baseplate with a 30 mm post, 2 4.5 screws. 2 5.5 screw, 42+4 glenosphere, 9 humeral stem, poly insert 6 constrained Kelley Exam Under anesthesia: Well-healed incision no erythema and no drainage Procedural Notes: No abnormal fluid Gram stain positive for gram-positive cocci few Operative procedure: The patient was brought to the operating room and placed on the operating room table. After general anesthesia was administered the operative shoulder was examined. Findings were noted. The patient was placed in the modified beachchair position. All pressure points were padded appropriately. And the head was stabilized in the neutral position. The operative extremity was prepped and draped in the sterile surgical fashion. The patient received IV antibiotics prior to skin incision. A standard deltopectoral approach was made to the operative shoulder. Incision was made through the old incision, through the skin and subcutaneous tissue, hemo stasis was obtained with Bovie cautery. Using careful blunt dissection the cephalic vein was identified and mobilized medially. The deltopectoral interval was developed and the clavipectoral fascia was incised. The shoulder was brought into internal rotation, the plate was exposed on the anterolateral aspect of the humerus. Fluid was serous in nature no evidence of pus, cultures were obtained Gram stain showed a few gram-positive cocci with forward blood cells. Decision was made to proceed with removal of hardware extensive debridement and irrigation revision to total shoulder replacement reverse. The screws and plate were removed without incident. The humeral cut was made saving as much proximal bone as possible. Anterior and posterior Bankart retractors were placed to expose the glenoid. The glenoid guide was seated and the centering hole was made. It was reamed with the appropriate reamer. 20 mm +2 baseplate with a 30 mm post was seated and secured with (2) 4.5 screws and 2 5.5 locking screws . The baseplate was irrigated and dried and the 42+4 Glenosphere was seated and secured with the Stevenson taper. The Stevenson taper was tested and found to be secure the humerus was redislocated and prepared with the diaphyseal reamers, followed by a broaching process up to the appropriate size 9 in 20 degrees of retroversion. The metaphyseal reamer was then utilized. Trial reduction found the shoulder to be relocatable. Trial components were removed and The appropriate 9 stem was impacted in place in 20 degrees retroversion. Trial reduction found the shoulder to be relocatable and stable with the appropriate 6 constrained Kelley Trial component was removed and the real implant was seated and secured the shoulder was reduced. The shoulder had excellent motion and excellent stability and no evidence of dislocation. The deep tissue was irrigated with pulse irrigation. The deltopectoral interval was closed with a running #1 PDS suture, subcutaneous tissue was irrigated and closed with 0 PDS suture, the skin was closed with Dermabond. The patient was placed in a sterile dressing, abduction brace and extubated. The patient was then transferred to the recovery room in stable condition. Anesthesia: GETA Surgeon: Juan Daniel Rangel Was there an commercial loan assistant present: No Estimated blood loss (cc): 100 Condition: stable Disposition: PACU
[2018-04-05 13:47] LABS: Hematocrit 31.3 % (37.5-50.1); Hemoglobin 9.4 g/dL (12.9-16.9)
[2018-04-05] MEDS ORDERED: traMADol 50 MG TABLET PO PRN (13:49)
[2018-04-05] MEDS ORDERED: MOM Conc 10 ML UD.LIQ PO PRN (13:49)
[2018-04-05] MEDS ORDERED: diazePAM 5 MG TABLET PO PRN (13:49)
[2018-04-05] MEDS ORDERED: Sennosides 8.6 MG TABLET PO PRN (13:49)
[2018-04-05] MEDS ORDERED: *HR* OxyCODONE Immed Rel 5 MG TABLET PO PRN (13:49)
[2018-04-05] MEDS ORDERED: Ondansetron 4 MG/2 ML VIAL IVP PRN (13:49)
[2018-04-05] MEDS ORDERED: *HR* OxyCODONE/APAP 5/325 TABLET PO PRN (13:49)
[2018-04-05] MEDS ORDERED: Temazepam 15 MG CAPSULE PO PRN (13:49)
[2018-04-05] MEDS ORDERED: Naloxone 0.4 MG/ML INJ IVP PRN (13:49)
[2018-04-05] MEDS ORDERED: Clindamycin 900 MG/50 ML 900 MG/50 ML IV.SOLN IVPB SCH (16:00)
[2018-04-05] MEDS: *HR* Rivaroxaban 15 MG TABLET PO SCH (16:01)
[2018-04-05] MEDS: Clindamycin 900 MG/50 ML 900 MG/50 ML IV.SOLN IVPB SCH (21:24)
[2018-04-06 00:55] LABS: Hematocrit 34.7 % (37.5-50.1); Hemoglobin 10.4 g/dL (12.9-16.9)
[2018-04-06] MEDS: Clindamycin 900 MG/50 ML 900 MG/50 ML IV.SOLN IVPB SCH (04:12)
[2018-04-06 06:53] VITALS: BP 116/70
[2018-04-06] MEDS: *HR* Rivaroxaban 15 MG TABLET PO SCH (07:41)
[2018-04-06] MEDS ORDERED: Furosemide 20 MG TABLET PO SCH (09:00)
--- NOTE | 2018-04-06 09:56 | Orthopedics Progress Note ---
Date of Encounter: 04/06/18 Time of Encounter: 09:55 Subjective Interval history: S: Resting comfortably in bed with no complaints O: Afebrile and vital signs are stable Left shoulder dressing is clean, dry, and intact Neurovascularly distally A: Left total shoulder arthroplasty, reverse P: Continue postoperative care Discharged today Objective Vital signs: Vital Signs Temp Pulse Resp BP Pulse Ox 04/06/18 06:52 98.7 F 110 18 116/70 98 04/05/18 22:36 99.3 F 114 18 114/64 95 04/05/18 18:57 97.7 F 112 18 135/78 97 04/05/18 16:00 97.7 F 108 17 154/83 93 04/05/18 15:10 97.6 F 100 16 165/90 92 04/05/18 14:35 97.6 F 100 17 148/79 93 04/05/18 14:07 97.5 F L 91 16 148/79 92 04/05/18 13:46 97.9 F 89 16 144/82 93 04/05/18 13:36 89 16 140/78 95 04/05/18 13:26 92 16 133/77 93 04/05/18 13:16 97.4 F L 92 20 142/84 100 04/05/18 11:50 81 16 132/78 98 04/05/18 11:27 77 16 126/80 97 04/05/18 11:18 82 16 116/68 95 04/05/18 10:01 98.5 F 85 18 122/76 96 Intake and Output 04/05/18 04/06/18 04/06/18 23:59 07:59 15:59 Intake Total 50 / 50 Output Total 1250 / 1250 300 / 300 Balance -1200 / -1200 -300 / -300 Intake: IV Fluids 50 / 50 Cleocin Premix 900 MG/50 ML 900 50 / 50 mg In 50 ml @ 50 mls/hr IVPB Q8H MALORIE Rx#:[id number] Output: Urine 1250 / 1250 Catheter 300 / 300 Other: # Voids 1 # Bowel Movements 1 - Labs CBC & BMP: 04/06/18 00:16 Labs: Abnormal lab results WBC 4.2 K/mcL (4.3-11.1) L 04/05/18 09:56 Hgb 10.4 g/dL (12.9-16.9) L 04/06/18 00:16 Hct 34.7 % (37.5-50.1) L 04/06/18 00:16 MCV 75.5 fL (83.0-100.0) L 04/05/18 09:56 MCH 23.4 pg (28.0-33.3) L 04/05/18 09:56 MCHC 31.0 g/dL (31.6-35.5) L 04/05/18 09:56 RDW 19.9 % (11.5-14.5) H 04/05/18 09:56 Plt Count 414 K/mcL (140-400) H 04/05/18 09:56 MPV 8.3 fL (9.4-12.4) L 04/05/18 09:56 PT 13.8 Seconds (9.4-12.1) H 04/05/18 09:56 - VTE Documentation of Mechanical Device: Venous foot pump, device Consult Discharge Plan - Plan Referrals: Aliyah Torres, [employer] OPERATOR [Primary Care Provider] -
== END 2018-04-06 10:53 | disposition home or self-care (01) | DRG 483 ==
LOC: SAMDAY 09:31 → 3NENU 13:49
PROVIDERS: ADMIT Orthopaedic Surgery; ATTEND Orthopaedic Surgery

== ENCOUNTER 2018-09-27 06:08 | Inpatient (IN) ==
--- NOTE | 2018-09-27 06:25 | History & Physical Report ---
Date of Encounter: 09/27/18 Time of Encounter: 06:25 24 Hour HP Update - Instructions Instructions: If the History and Physical is less than 30 days old and was completed prior to A.M. admission and or procedure and has NOT been updated on calendar day of procedure please complete this update prior to performing procedure. - Update Patient reports changes in Medical Condition: No Changes in examination, assessment, or condition: No Changes in Medication: No Preop tests/diagnostics Reviewed: Yes Surgery Remains Indicated: Yes Consent for Planned Operative Procedure(s) Verified: Yes - Pre-Operative Checklist Preoperative Checklist Indicated: No Prophylactic Antibiotic Ordered: Yes Is VTE Prophylaxis Indicated?: Yes
[2018-09-27] MEDS ORDERED: Ringers Solution, Lactated 1,000 ML IVC SCH (06:30)
[2018-09-27] MEDS ORDERED: Ondansetron 4 MG/2 ML VIAL ONE (07:00)
[2018-09-27] MEDS ORDERED: *HR* FentaNYL (PF) 100 MCG/2 ML VIAL ONE ×2 (07:00→08:47)
[2018-09-27] MEDS ORDERED: *HR* Propofol 200 MG/20 ML VIAL IVP ONE (07:00)
[2018-09-27] MEDS ORDERED: Lidocaine -MPF 2% 2 ML VIAL ONE (07:00)
[2018-09-27] MEDS ORDERED: *HR* Succinylcholine 200 MG/10 ML VIAL IVP ONE (07:00)
[2018-09-27] MEDS ORDERED: LIDOCAINE 1% PF 2 ML AMPUL ONE (07:02)
[2018-09-27] MEDS ORDERED: Dexamethasone 4 MG/ML VIAL ONE ×2 (07:04→07:53)
[2018-09-27] MEDS ORDERED: Famotidine 20 MG/2 ML VIAL IVP ONE (07:05)
[2018-09-27] MEDS ORDERED: Acetaminophen IV 1,000 MG/100 ML INFUS..BTL IVPB ONE (07:06)
--- NOTE | 2018-09-27 07:11 | Anesthesia Evaluation PreOp ---
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: Seizures (remote), Syncope ( resolved, negative workup), Other (RLS) Other Medical History: GERD, Other (Osteoarthritis) Anesthesia History: No Prior Anesthetic Complications Alcohol Use: none Drug use: none Medications and Allergies Ferrous Sulfate [Iron] 325 mg PO DAILY 04/05/18 [History] Furosemide [Lasix] 20 mg PO DAILY 04/05/18 [History] Pantoprazole Sodium [Protonix] 40 mg PO DAILY 04/05/18 [History] Phenytoin Sodium Extended [Dilantin] 200 mg PO TID 04/05/18 [History] Primidone [Mysoline] 250 mg PO BID 04/05/18 [History] Rivaroxaban [Xarelto] 15 mg PO BID 04/05/18 [History] Ropinirole HCl [Requip] 5 mg PO TID 04/05/18 [History] diazePAM [Valium] 5 mg PO DAILY PRN 04/05/18 [History] Allergy/AdvReac Type Severity Reaction Status Date / Time Penicillins [PCN] Allergy See Verified 08/09/18 09:29 Comments Sulfa (Sulfonamide Allergy See Verified 08/09/18 09:29 Antibiotics) Comments - Meds/Allergy Pre-op Review Medications Reviewed: Yes Allergies Reviewed: Yes Beta Blockers on Current Med List: No Anesthesia Results - Labs Laboratory Tests 08/10/18 09/26/18 04:37 11:54 Hgb 10.0 L Hct 31.7 L Plt Count 313 Sodium 133 L Potassium 3.9 BUN 12 Creatinine 0.63 L - Imaging EKG: report reviewed (SR) Additional studies: JOSHUA 2018 EF 65%, mild pulm htn, no Anesthesia Exam O2 Sat Height 1.78 m Height 1.78 m Weight 88.451 kg Weight 88.451 kg O2 Sat by Pulse Oximetry 96 Vital Signs Temp Pulse Resp BP Pulse Ox 98.4 F 87 18 130/78 96 09/27/18 06:47 09/27/18 06:47 09/27/18 06:47 09/27/18 06:47 09/27/18 06:47 Height: 5'10 Weight: 195 lbs NPO (# of Hours): MN Pain Scale: 0 - HEENT Pupil (Motor): Pupils equal, EOMI Mallampati: III Teeth: Missing, Poor dentition Oral Opening: Less than or equal to 3 - BEATER ENGINEER HELPER LOC: Oriented BEATER ENGINEER HELPER Motor: Normal RUE, Normal LUE, Normal RLE, Normal LLE, Normal Face BE[employer] ENGINEER HELPER Sensory: Normal: RUE, LUE, RLE, LLE, Face - Cardiac Rhythm: Regular Murmur: None JVD: No Carotid Bruit: No - Pulmonary Breath Sounds: bilateral Clear Respiratory Effort: Symmetrical Anesthesia Assess/Plan ASA Score: 3 (DVT on blood thinners, OA) Level of consciousness: Cooperative, Oriented Anesthetic Plan: General, Regional Nerve Block Regional Nerve Block Plan: Supraclavicular Monitoring Plan: Standard Monitors Recovery Plan: PACU (Discussed GA and RA,agrees to proceed)
[2018-09-27] MEDS ORDERED: ROPIVACAINE HCL/PF 0.5% 30 ML VIAL ONE (07:20)
[2018-09-27] MEDS ORDERED: ROPIVACAINE/PF/NS SYRINGE INTRAART ONE (07:20)
[2018-09-27] MEDS ORDERED: Lidocaine -MPF 2% 5 ML VIAL ONE (07:21)
[2018-09-27] MEDS ORDERED: Ethanol\\Acetic Acid\\Na Ace\\Ben 1,000 ML IRRIG.SOLN IR ONE ×3 (07:22→08:47)
[2018-09-27] MEDS ORDERED: *HR* Magnesium Sulfate 1 GM/2 ML VIAL ONE (07:59)
[2018-09-27] MEDS ORDERED: *HR* PHENYLEPHRINE 1,000 MCG/10 ML SYRINGE IVP ONE ×2 (08:03→08:43)
[2018-09-27] MEDS ORDERED: EPHEDrine 50 MG/ML VIAL ONE (08:24)
[2018-09-27] MEDS ORDERED: *HR* Phenylephrine 10 MG/ML VIAL ONE (09:11)
[2018-09-27] MEDS ORDERED: *HR* OxyCODONE Immed Rel 5 MG TABLET PO PRN (09:23)
[2018-09-27] MEDS ORDERED: Ondansetron 4 MG/2 ML VIAL IVP ONE (09:23)
--- NOTE | 2018-09-27 10:04 | Orthopedic Operative Note ---
Date of procedure: 09/27/18 Pre-op diagnosis: Infected left total shoulder replacement reverse Post-op diagnosis: same Procedure: Procedure: Left Revision Total Shoulder replacement reverse Estimated blood loss: 500 cc Hardware: Arthrex: Metal and plastic replacement: Baseplate: 24, +4, 30 mm screw. Humeral stem size 12 sphere 42+4, 3 constrained, one REHAN drain Procedural Notes: Purulent material extending from the joint distally loose humeral stem significant scar tissue Operative procedure: The patient was brought to the operating room and placed on the operating room table. The patient was placed in the modified beachchair position. All pressure points were padded appropriately. And the head was stabilized in the neutral position. The operative extremity was prepped and draped in the sterile surgical fashion. The patient received IV antibiotics prior to skin incision. A standard deltopectoral approach was made to the operative shoulder. Incision was made through the old incision. Incision was made through the skin and subcutaneous tissue,hemo stasis was obtained with Bovie cautery. Using careful blunt dissection the cephalic vein was identified and mobilized medially. The patient had a multiloculated pocket of purulent material distally. This was the thickened heart source palpable on the surface. This was extensively debrided. This required extensive debridement of scarred fat tissue. Proximally The deltopectoral interval was developed and the clavipectoral fascia was incised. An extensive debridement was performed, and the shoulder was dislocated. The humeral stem was loose and removed without difficulty. The canal was cleaned of fibrinous debris with a curet. Attention was then turned to the glenoid, the glenoid sphere was removed followed by the screws in the baseplate. This was accomplished without significant bone loss. Fibrinous material was also debrided off the face the glenoid. Malunion of the greater tuberosity was excised as well. The shoulder then sat for 1 minute with an antibacterial solution. It was then irrigated out with 3 L of pulse irrigation of a different antibacterial solution. It was then irrigated out with 3 L of pulse irrigation. Attention was then turned to reimplantation The glenoid guide was seated the centering hole was made the glenoid was reamed with the appropriate reamer. The glenoid baseplate 24, +4, 30 mm screw was seated and secured and locked in place with the 4, 5.5 locking screws. The baseplate was irrigated and dried 42+4 glenosphere was seated and secured Stevenson taper and central screw. Attention was then turned to the humeral side. The humerus was reamed and broached up to its appropriate size 12 in 20 degrees of retroversion. Trial reduction found the shoulder to be relocatable. Trial components were removed, real implants were seated. Trial reduction found the shoulder to be stable with the 3 constrained. The trial implants were removed the real implants were seated and secured in the shoulder was reduced. The patient had excellent motion and excellent stability no shuck. The deep tissue was irrigated with pulse irrigation deltopectoral interval was closed with #2 PDS suture over a REHAN drain. Superficially the subcutaneous tissue was closed with 0 PDS suture, the skin was closed with skin adri. The patient placed sterile dressing, postoperative brace extubated and transferred to the recovery room in stable condition. Anesthesia: GETA Surgeon: Juan Daniel Rangel Was there an histology assistant present: No Estimated blood loss (cc): 500 Condition: stable Disposition: PACU
[2018-09-27 10:14] LABS: Hematocrit 27.7 % (37.5-50.1); Hemoglobin 8.7 g/dL (12.9-16.9)
--- NOTE | 2018-09-27 10:24 | Anesthesia Evaluation Post Op ---
Date of Encounter: 09/27/18 Time of Encounter: 10:25 - Vital Signs Vital Signs: Vital Signs/O2 Sat/Glucose, Most Current Temp Pulse Resp BP Pulse Ox 09/27/18 10:12 94 22 107/71 93 09/27/18 10:02 96 16 114/68 94 09/27/18 09:52 98.0 F 98 14 106/63 100 09/27/18 09:03 61 152/92 97 09/27/18 07:41 72 141/79 100 09/27/18 07:37 85 144/90 100 09/27/18 06:47 98.4 F 87 18 130/78 96 - Lungs Lungs: Clear Ascult./Percussion - Airway Airway: Non-obstructed - Cardiovascular Regular Rate - Mental Status Mental Status: Alert & Oriented, Answers Appropriately - Pain Pain Scale: 0 - Nausea Vomiting Nausea Vomiting: Not Present - Hydration Hydration: Ice chips - Discharge PostOp Status: Transfer Patient to floor
--- NOTE | 2018-09-27 10:25 | Discharge Summary ---
<Juan Daniel Rangel - Last Filed: 09/30/18 06:50> Orders not resulted at time of discharge: Pending orders 09/27/18 06:25 XR shoulder complete LT [XR] Routine 09/27/18 07:27 US anesthesia pain block [US] Routine 09/27/18 08:08 Culture,Anaerobic [RM] Routine Culture,Wound [RM] Routine 09/27/18 09:36 Surgical Pathology [PTH] Routine Date of Encounter: 09/30/18 - Discharge Diagnosis (1) History of DVT (deep vein thrombosis) Priority: Secondary Status: Chronic (2) Aortic aneurysm Priority: Secondary Status: Chronic Qualifiers: Aortic location: unspecified Presence of rupture: without rupture Qualified Code(s): I71.9 - Aortic aneurysm of unspecified site, without rupture (3) Infection of prosthetic total shoulder joint Priority: Primary Status: Acute Qualifiers: Encounter type: subsequent encounter Qualified Code(s): T84.59XD - Infection and inflammatory reaction due to other internal joint prosthesis, subsequent encounter; Z96.619 - Presence of unspecified artificial shoulder joint (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 Priority: Primary Status: Acute Qualifiers: Laterality: left Qualified Code(s): Z96.612 - Presence of left artificial shoulder joint (5) HTN (hypertension) Priority: Secondary Status: Chronic Qualifiers: Hypertension type: unspecified Qualified Code(s): I10 - Essential (primary) hypertension (6) Left bundle branch block Priority: Secondary Status: Chronic (7) Seizure disorder Priority: Secondary Status: Chronic (8) Acute blood loss anemia Priority: Primary Status: Acute (9) NSVT (nonsustained ventricular tachycardia) Priority: Primary Status: Acute - Hospital Course Hospital course: Mr. De La Fuente is a 73 year old male - Time Spent with Patient Total time spent providing and/or coordinating discharge services: - Discharge Medications Prescriptions: New Cefazolin Sodium in 0.9 % NaCl [Cefazolin 2 G/100 ml-0.9% NaCl] 2 gm IV Q8H 7 Days #21 plast..bag rifAMPin [Rifadin] 450 mg PO BID 7 Days #84 capsule Continue Rivaroxaban [Xarelto] 15 mg PO BID Ferrous Sulfate [Iron] 325 mg PO DAILY diazePAM [Valium] 5 mg PO DAILY PRN PRN Reason: Anxiety Furosemide [Lasix] 20 mg PO DAILY Primidone [Mysoline] 250 mg PO BID Ropinirole HCl [Requip] 5 mg PO TID PRN PRN Reason: LEG CRAMPS Pantoprazole Sodium [Protonix] 40 mg PO DAILY Montelukast [Singulair] 10 mg PO DAILY Benzonatate 100 mg PO TID PRN PRN Reason: Cough Phenytoin ER [Dilantin ER] 200 mg PO TID Metoprolol Succinate [Toprol Xl] 50 mg PO BID 30 Days #60 tab.er.24h Home Medications: Ferrous Sulfate [Iron] 325 mg PO DAILY 04/05/18 [History] Furosemide [Lasix] 20 mg PO DAILY 04/05/18 [History] Pantoprazole Sodium [Protonix] 40 mg PO DAILY 04/05/18 [History] Primidone [Mysoline] 250 mg PO BID 04/05/18 [History] Rivaroxaban [Xarelto] 15 mg PO BID 04/05/18 [History] Ropinirole HCl [Requip] 5 mg PO TID PRN 04/05/18 [History] diazePAM [Valium] 5 mg PO DAILY PRN 04/05/18 [History] Benzonatate 100 mg PO TID PRN 09/29/18 [History] Montelukast [Singulair] 10 mg PO DAILY 09/29/18 [History] Phenytoin ER [Dilantin ER] 200 mg PO TID 09/29/18 [History] Metoprolol Succinate [Toprol Xl] 50 mg PO BID 30 Days #60 tab.er.24h 10/02/18 [Rx] Cefazolin Sodium in 0.9 % NaCl [Cefazolin 2 G/100 ml-0.9% NaCl] 2 gm IV Q8H 7 Days #21 plast..bag 10/03/18 [Rx] rifAMPin [Rifadin] 450 mg PO BID 7 Days #84 capsule 10/03/18 [Rx] Allergies/Adverse Reactions: Allergy/AdvReac Type Severity Reaction Status Date / Time Penicillins [PCN] Allergy See Verified 09/29/18 12:18 Comments Sulfa (Sulfonamide Allergy See Verified 09/29/18 12:18 Antibiotics) Comments Primary care physician: Aliyah Torres CNP Labs on day of discharge: Labs from last 24 hours 09/27/18 10:06 Hgb 8.7 L Hct 27.7 L Preliminary micro results at discharge 09/27/18 08:08 Anaerobic Culture - Preliminary Left Shoulder Culture is incubating. - Patient Status Disposition: Home Health Service Condition: Fair - Discharge Instructions Follow Up With: Aliyah Torres CNP [Primary Care Provider] - Additional Instructions: Discharge Instructions: Total Shoulder Please call [facility] ([phone]), your Primary Care Physician, or report to the Emergency Room if you have any of the following symptoms: Nausea, vomiting, fever greater that 101.5, swelling, chest pain, shortness of breath, increased pain/redness/drainage/odor for your incision site, numbness/tingling, or any other concerning symptoms. ACTIVITY: Always keep your arm in the sling. Do not raise your arm away from your body. Do not use your arm to help with getting in or out of bed. No weight bearing permitted. Only perform those exercises given to you by your therapist. Incentive Spirometer 10 times an hour. MEDICATIONS: Upon discharge resume your home medications. Take all the medications as prescribed. Take a stool softener if taking narcotic pain medications. Stool softeners are only effective if you drink enough fluids. Drink 6-8 glass of water or fluids a day, unless this is not allowed for another health problem. Despite using stool softeners, if you haven't had a bowel movement in 3 days, please switch to a gentle laxative. Gentle laxatives are sold over the counter. You should have a bowel movement within 24 hours, if not call the office. You will be discharged from the hospital with a prescription for pain medication. You are encouraged to decrease the use of narcotic pain medication as tolerated. Should you require a refill, please call the office. [facility] prescribes narcotic pain medication for only 4-6 weeks after surgery. If you require pain medication beyond this time period, you may be referred to your Primary Care Physician or to the Pain Clinic for further evaluation. Plan ahead for refills on pain medication as many narcotics either need to be picked up at the office or mailed. It is best to call 48-72 hours in advance of needing a prescription refill so you don't run out of medication. To help control the post-operative pain, you may take NSAIDs (Aleve,Advil, Motrin, Ibuprofen, Naprosyn) or Tylenol as prescribed on the bottle in addition to the pain medication. WOUND CARE: Leave the dressing on for 7-10 days. You may change the dressing if it becomes saturated greater than 50%. Do not get the dressing wet at anytime. Wash your hands with antibacterial soap, rinse and dry prior to any wound care. If you have adri the visiting nurse or rehab facility can remove the stapes 10-14 days after surgery and place steri-strips across the wound. Leave the steri-strips in place until they fall off on their own. You may let water from the shower run on top of the steri-strips. If you do not have a visiting nurse or rehab facility, you will need to return to the office at 10-14 days for the adri to be removed. If you have itching or redness around the dressing call the office. FOLLOW-UP: Please follow up with your surgeon in the orthopedic clinic, as jose ramon gonzalez Infectious Disease Appointment (at [facility]): 10/17/18 @ 2:05pm with Hope Hinton CNP <Kiara Hernandez - Last Filed: 10/03/18 16:30> - NOTES TO OUTPATIENT PROVIDER Notes to Outpatient Provider: Clinical pharmacy concerned regarding BID dosing of Xarelto - please review in follow up. Patient sent on PO Rifampin and IV Ancef and to follow up oupatient with infectious disease Orders not resulted at time of discharge: Pending orders 09/27/18 07:27 US anesthesia pain block [US] Routine 09/27/18 08:08 Culture,Anaerobic [RM] Routine 09/27/18 09:36 Surgical Pathology [PTH] Routine Date of Encounter: 10/03/18 Time of Encounter: 08:30 - Discharge Diagnosis (1) Status post reverse total shoulder replacement Priority: Primary Status: Acute Qualifiers: Laterality: left Qualified Code(s): Z96.612 - Presence of left artificial shoulder joint (2) Infection of prosthetic total shoulder joint Priority: Primary Status: Acute Qualifiers: Encounter type: subsequent encounter Qualified Code(s): T84.59XD - Infection and inflammatory reaction due to other internal joint prosthesis, subsequent encounter; Z96.619 - Presence of unspecified artificial shoulder joint (3) Acute blood loss anemia Priority: Secondary Status: Resolved Comments: Patient received 2 units PRBCs on 09/30 (4) NSVT (nonsustained ventricular tachycardia) Priority: Secondary Status: Acute Comments: Per Cardiology: "LHC was recommended in out-pt setting. We discussed completing while in-pt but he declines. States that he will recover from his shoulder surgery and then undergo LHC in the future. Risk verses benefit discussed. He agrees to follow closely out-pt to coordinate. Continue metoprolol. keep potassium above 4.0 and mag above 2.0." (5) History of DVT (deep vein thrombosis) Priority: Secondary Status: Chronic - Hospital Course Hospital course: Mr. De La Fuente is a 73 year old male Vital Signs Date of procedure: 09/27/18 Pre-op diagnosis: Infected left total shoulder replacement reverse Post-op diagnosis: same Procedure: Left Revision Total Shoulder replacement reverse Patient did well postoperatively and was able to begin shoulder motion. Had several episodes of NSVT which was monitored and evaluated by both hospitalist teams and cardiology with recommendation for LHC which patient has consistently refused. Will have patient keep outpatient follow up as arranged. Metoprolol added with recommendations of potassium stay at 4 and magnesium at 2 as per cardiology recommendations Infectious disease consulted with recommendations for PCN testing however allergy/immunology services not available leading to trial dosing without reaction. Therefore infectious disease recommendation for patient to have 6 weeks of IV Cefazolin and PO Rifampin based on patient's intraop wound cultures of staph aureus. Patient had home health and infusion services arranged and was deemed appropriate for discharged 10/03 with outpatient follow up with PCP, Ortho, and Infectious Disease. Temp Pulse Resp BP Pulse Ox 10/03/18 10:49 98.2 F 75 16 116/77 98 10/03/18 10:48 98 F 82 16 110/70 10/03/18 10:32 98.0 F 75 16 110/70 98 10/03/18 07:50 98.2 F 82 16 118/72 98 10/03/18 06:40 98 F 84 16 156/83 98 10/03/18 05:34 97.6 F 80 16 163/90 99 10/03/18 04:25 98.3 F 82 16 134/70 100 10/03/18 03:33 98.5 F 82 14 134/89 100 10/03/18 02:32 98.2 F 69 16 146/84 100 10/03/18 01:03 97.6 F 66 14 138/84 97 10/02/18 23:08 97.6 F 84 20 168/93 97 10/02/18 21:50 94 10/02/18 19:20 97.6 F 91 16 123/70 94 10/02/18 14:05 98.4 F 93 16 129/86 95 Intake and Output 10/02/18 10/03/18 10/03/18 23:59 07:59 15:59 Intake Total 490 / 490 300 / 300 Output Total 500 / 500 1375 / 1375 Balance -10 / -10 -1075 / -1075 Intake: IV Fluids 250 / 250 100 / 100 Vancocin 1,000 MG In 0.9 % 250 / 250 Sodium Chloride 250 ML @ 166.67 mls/hr IVPB Q12H JOSE RAMON Rx#: [id number] Ancef 2,000 MG In 0.9 % Sodium 100 / 100 Chloride 100 ML @ 200 mls/hr IVPB Q8HR JOSE RAMON Rx#:[id number] Oral 240 / 240 200 / 200 Output: Urine 500 / 500 1375 / 1375 Other: Meal Dinner Percent of Meal Consumed 75% Weight 90.6 kg Patient Weight 10/03/18 23:59 Weight 90.6 kg - Time Spent with Patient Total time spent providing and/or coordinating discharge services: Date of admission: 09/27/18 10:54 Primary care physician: Aliyah Torres CNP Consults: 09/27/18 12:07 Consult to Occupational Therapy [CONS] Routine Comment: post shoulder surgery Reason for Consult: post shoulder surgery Does patient have active BEDREST order?: No Is patient medically & hemodynamically stable?: Yes Consult to Physical Therapy [CONS] Routine Comment: post shoulder surgery Reason for Consult: post shoulder surgery Does patient have active BEDREST order?: No Is patient medically & hemodynamically stable?: Yes Consult to County Program Technician [CONS] Routine Reason for SW Consult: shoulder surgery RT Post Op Consult [CONS] Routine 09/27/18 12:17 Consult to Invasive Line Access Team [CONS] Routine Reason for Consult: Picc Line Insertion Line Type: PICC 09/28/18 03:47 Consult to Cardiology [CONS] Routine Comment: Consulting Provider: Cardiology Dolly Reason for Consult: Patient syncopyzed in chair. has history of syncopal episodes. spontaneously woke, vitals stable, EKG and cardiac monitoring showed several PVCs with bigeminy and trigeminy. Has previously been worked up for syncope Call Completed: No Discharging clinician: Juan Daniel Rangel Anticipated date of discharge: 10/03/18 - VTE Reasons for not Prescribing Prophylaxis: Not indicated-Anticoagulated or INR therapeutic Documentation of Mechanical Device: Venous foot pump, device Labs on day of discharge: Labs from last 24 hours 09/30/18 09/30/18 09/27/18 04:06 04:06 22:49 WBC 4.8 D RBC 2.81 L Hgb 7.4 L Hct 23.3 L MCV 82.9 L MCH 26.3 L MCHC 31.8 RDW 16.6 H Plt Count 235 MPV 8.1 L Sodium 133 L Potassium 3.8 Chloride 104 Carbon Dioxide 26 BUN 11 Creatinine 0.59 L Est GFR ( Amer) > 60 Est GFR (Non-Af Amer) > 60 BUN/Creatinine Ratio 19 Glucose 114 H Calculated Osmolality 276 L Calcium 8.2 L Magnesium 1.9 Blood Type A POSITIVE Antibody Screen NEGATIVE Crossmatch See Detail Preliminary micro results at discharge 09/27/18 08:08 Anaerobic Culture - Preliminary Left Shoulder At this time, no anaerobic growth is present. The culture will be finalized after 5 days of incubation. - Impressions ITS Impressions Shoulder X-Ray 09/27/18 06:25 IMPRESSION: Normal alignment of left shoulder arthroplasty. No acute fracture or dislocation. Surgical drains are in place. D/ /27/2018 11:53:28 Sumeet Avila MD / [email or web address] Interpreting Provider: Sumeet Avila MD - Patient Status Functional capacity at discharge: independent ambulation Overall status at discharge: patient is progressing back to baseline - Diet and Activity Activity: as per physical therapy Diet: advance to your usual diet
--- NOTE | 2018-09-27 11:13 | Anesthesia Procedures ---
Date of Encounter: 09/27/18 Time of Encounter: 07:30 Procedures: Anesthesia - Nerve Block Procedure Date: 09/27/18 Time: 07:30 Surgical Procedure: left shoulder revision Checklist: Correct Patient Identifier, Correct procedure, History checked Correct side: Left Blood Thinner: Yes Monitor Applied: EKG, BP, Pulse Oximetry Supplemental Oxygen via Nasal Cannula (L/min): 2 Sedation: Fentanyl (mcg): 100 Indication: Post Op Analgesia Block Type: Supraclavicular, Other (ICP/ICB) Catheter placed: No Sterile Technique: Yes Ultrasound used: Yes Anatomy identified: Yes Visual spread of Local: Yes Neuro Stimulation: No Blood on Needle Aspiration: No Smooth Injection of Local: Yes Pain with Injection of Local: No Prep: Chlorhexadine Needle: 22 x 50 mm Stimuplex Local: Ropivacaine (0.5% 30ml with 8mg decadron/ 0.25% 20) Volume (cc): 50 ml total Number of Attempts: 1 Complications: None/effective block Vitals: Vital Signs/O2 Sat/Glucose, Most Current Temp Pulse Resp BP Pulse Ox 09/27/18 10:52 98.3 F 93 14 114/65 94 09/27/18 10:42 97 13 112/64 92 09/27/18 10:32 94 19 110/60 93 09/27/18 10:22 98.3 F 95 16 116/65 94 09/27/18 10:12 94 22 107/71 93 09/27/18 10:02 96 16 114/68 94 09/27/18 09:52 98.0 F 98 14 106/63 100 09/27/18 09:03 61 152/92 97 09/27/18 07:41 72 141/79 100 09/27/18 07:37 85 144/90 100
[2018-09-27] MEDS ORDERED: diazePAM 5 MG TABLET PO PRN (12:07)
[2018-09-27] MEDS ORDERED: Ondansetron 4 MG/2 ML VIAL IVP PRN (12:07)
[2018-09-27] MEDS ORDERED: MOM Conc 10 ML UD.LIQ PO PRN (12:07)
[2018-09-27] MEDS ORDERED: *HR* OxyCODONE/APAP 5/325 TABLET PO PRN (12:07)
[2018-09-27] MEDS ORDERED: Temazepam 15 MG CAPSULE PO PRN (12:07)
[2018-09-27] MEDS ORDERED: Sennosides 8.6 MG TABLET PO PRN (12:07)
[2018-09-27] MEDS ORDERED: Lidocaine -MPF 1% 5 ML AMPUL INFILT ONE (12:17)
[2018-09-27] MEDS: rOPINIRole 1 MG TABLET PO SCH ×2 (13:09→21:36)
[2018-09-27] MEDS: Furosemide 20 MG TABLET PO SCH (13:10)
[2018-09-27] MEDS: *HR* Rivaroxaban 10 MG TABLET PO SCH (17:10)
[2018-09-27] MEDS: Ringers Solution, Lactated 1,000 ML IVC SCH (20:06)
--- NOTE | 2018-09-27 20:41 | Physician Discharge Referral ---
Addendum entered and electronically signed by DULCE Roman 10/01/18 15:53: Vancomycin/0.9 % Sod Chloride [Vanco 1.25 gm/250 ml-0.9% NaCl] 1.25 gm IV Q12H 7 Days #14 plast..bag with 5 refills for total of 6 weeks administration Original Note: <Kiara Martin - Last Filed: 09/27/18 20:38> Home Health/Hosp Referral Info Transfer to: Home Health Attending Provider: Juan Carlos - Diagnosis (1) Infection of prosthetic total shoulder joint Priority: Primary Status: Acute (2) Status post reverse total shoulder replacement Priority: Primary Status: Acute (3) Aortic aneurysm Priority: Secondary Status: Chronic (4) History of DVT (deep vein thrombosis) Priority: Secondary Status: Chronic (5) HTN (hypertension) Priority: Secondary Status: Chronic (6) Left bundle branch block Priority: Secondary Status: Chronic (7) Seizure disorder Priority: Secondary Status: Chronic - Respiratory Orders None Smoking Cessation: Smoking cessation has been advised. For more information, call the [employer] Quit Line at 6-552-MWJI-NOW. - Diet/Nutrition Diet/Nutrition Orders: Regular - Activity Activity Orders: Up ad kat, Ambulate - Services Needed Following services are medically necessary services: Nursing, Home Health Aide, Physical Therapy, Occupational Therapy Home Care Orders: Will require PICC line care, plan for IV vancomycin for 6 weeks Weekly labs: CBC, BMP, ESR, CRP, vanc trough Opsite dressing, leave intact until first post-operative visit. Zipline/Jose in place, plan to remove at post-operative day #14-16. If dressing becomes >50% saturated, contact office, remove dressing and place appropriate dressing in its place. Do not allow for dressing to get wet. Shoulder Precautions x 6 weeks. Apply cold therapy wrap 3-6x/day for 20 minutes at a time. Encourage ambulation throughout the day. Use Incentive spirometer 10x/hour. Elevate affected extremity above heart as tolerated. NWB to affected upper extremity x 6 weeks. Will remove brace at first post-operative appointment. OK to remove during PT/OT and Home exercises. - Transfer Medications Prescriptions: Vancomycin/0.9 % Sod Chloride [Vanco 1.5 gm/250 ml-0.9% NaCl] 1.5 gm IV Q12H 7 Days #14 plast..bag Home Medications: Ferrous Sulfate [Iron] 325 mg PO DAILY 04/05/18 [History] Furosemide [Lasix] 20 mg PO DAILY 04/05/18 [History] Pantoprazole Sodium [Protonix] 40 mg PO DAILY 04/05/18 [History] Primidone [Mysoline] 250 mg PO BID 04/05/18 [History] Rivaroxaban [Xarelto] 15 mg PO BID 04/05/18 [History] Ropinirole HCl [Requip] 5 mg PO TID PRN 04/05/18 [History] diazePAM [Valium] 5 mg PO DAILY PRN 04/05/18 [History] OxyCODONE Immed Rel [Roxicodone 5 MG] 5 mg PO Q6HR PRN 5 Days #20 tablet 09/27/18 [Rx] Benzonatate 100 mg PO TID PRN 09/29/18 [History] Metoprolol Succinate [Toprol Xl] 50 mg PO BID 09/29/18 [History] Montelukast [Singulair] 10 mg PO DAILY 09/29/18 [History] Phenytoin ER [Dilantin ER] 200 mg PO TID 09/29/18 [History] Vancomycin/0.9 % Sod Chloride [Vanco 1.5 gm/250 ml-0.9% NaCl] 1.5 gm IV Q12H 7 Days #14 plast..bag 10/01/18 [Rx] Allergies/Adverse Reactions: Allergy/AdvReac Type Severity Reaction Status Date / Time Penicillins [PCN] Allergy See Verified 09/29/18 12:18 Comments Sulfa (Sulfonamide Allergy See Verified 09/29/18 12:18 Antibiotics) Comments Certification: Further, I certify that my clinical findings support that this patient is homebound (i.e. absences from home require considerable and taxing effort and are for medical reasons or voodoo services or infrequently or short duration when for other reasons) because: Homebound Reason: Post-surgery restriction and or conditions limit ability to leave home Attestation: My signature below is to certify that this patient is under my care and that I, or nurse practitioner, or a physician certified registered dental assistant working with me, has a [id number] encounter with this patient. <Kiara Hernandez E - Last Filed: 10/01/18 12:52> Home Health/Hosp Referral Info Transfer to: Home Health - Diagnosis (1) Status post reverse total shoulder replacement Priority: Primary Status: Acute (2) Infection of prosthetic total shoulder joint Priority: Primary Status: Acute (3) NSVT (nonsustained ventricular tachycardia) Priority: Secondary Status: Acute (4) History of DVT (deep vein thrombosis) Priority: Secondary Status: Chronic (5) Acute blood loss anemia Priority: Secondary Status: Resolved - Respiratory Orders Smoking Cessation: Smoking cessation has been advised. For more information, call the [employer] Quit Line at 0-637-ILTP-NOW. - Dressing/Wound Care Site: left shoulder Type of Dressing/Treatments w/Frequency: Pressure dressing applied - change twice daily with antibiotic administration - monitor for drainage. If increasing or changing in character - patient to be seen by [facility] immediately - Diet/Nutrition Diet/Nutrition Orders: Regular - Activity Activity Orders: Up ad kta, Ambulate - Services Needed Following services are medically necessary services: Nursing, Home Health Aide, Physical Therapy, Occupational Therapy, Med Social Work, Home Infusion Certification: Further, I certify that my clinical findings support that this patient is homebound (i.e. absences from home require considerable and taxing effort and are for medical reasons or voodoo services or infrequently or short duration when for other reasons) because: Homebound Reason: Post-surgery restriction and or conditions limit ability to leave home Attestation: My signature below is to certify that this patient is under my care and that I, or nurse practitioner, or a physician certified registered dental assistant working with me, has a [id number] encounter with this patient.
[2018-09-27 22:59] LABS: Basophils % 0.2 %; Eosinophils % 0.3 %; Hematocrit 28.2 % (37.5-50.1); Hemoglobin 8.7 g/dL (12.9-16.9); Immature Granulocytes % 0.3 % (0-4); Lymphocytes # 1.9 K/mcL (0.6-4.6); Lymphocytes % 18.8 %; Mean Corpuscular HGB Conc 30.9 g/dL (31.6-35.5); Mean Corpuscular Volume 84.4 fL (83.0-100.0); Mean Platelet Volume 8.3 fL (9.4-12.4); Monocytes # 0.6 K/mcL (0.0-1.3); Monocytes % 6.1 %; Neutrophils # 7.4 K/mcL (1.6-8.9); Platelet Count 334 K/mcL (140-400); Red Blood Count 3.34 M/mcL (4.19-5.50); Red Cell Distribution Width 16.1 % (11.5-14.5); Segmented Neutrophils % 74.3 %
[2018-09-27 23:22] LABS: BUN/Creatinine Ratio 22 (6-26); Blood Urea Nitrogen 17 mg/dL (8-23); Calcium 7.8 mg/dL (8.6-10.3); Carbon Dioxide 20 mEq/L (23-29); Chloride 102 mEq/L (98-107); Glucose 142 mg/dL (70-105); Osmolality,Calculated 284 (280-300); Potassium 3.8 mEq/L (3.5-5.1); Sodium 135 mEq/L (136-145); eGFR For Non-African Americans > 60 (> 60)
[2018-09-27] MEDS ORDERED: 0.9 % Sodium Chloride 1,000 ML IVC ONE (23:29)
[2018-09-28] MEDS: traMADol 50 MG TABLET PO PRN ×3 (01:46→20:56)
[2018-09-28] MEDS: Ringers Solution, Lactated 1,000 ML IVC SCH (02:59)
[2018-09-28 03:08] LABS: Phenytoin (Dilantin) 7.3 mcg/mL (10.0-20.0)
[2018-09-28 03:26] LABS: Hematocrit 23.4 % (37.5-50.1); Hemoglobin 7.4 g/dL (12.9-16.9)
[2018-09-28 03:38] LABS: BUN/Creatinine Ratio 24 (6-26); Blood Urea Nitrogen 16 mg/dL (8-23); Calcium 7.4 mg/dL (8.6-10.3); Carbon Dioxide 22 mEq/L (23-29); Chloride 105 mEq/L (98-107); Glucose 165 mg/dL (70-105); Osmolality,Calculated 279 (280-300); Potassium 3.8 mEq/L (3.5-5.1); Sodium 132 mEq/L (136-145); eGFR For Non-African Americans > 60 (> 60)
--- NOTE | 2018-09-28 03:54 | Event Note ---
Date of Encounter: 09/28/18 Time of Encounter: 22:30 Rapid response was called as patient syncopized while sitting in chair. Upon arrival patient had spontaneously woke, was awake and alert, and in no acute distress. He denied any chest pain, palpitations, or shortness of breath. Patient was pale in appearance. Vitals were stable. Stat labs and EKG were obtained. EKG showed sinus rhythm with first-degree AV block, there were PVCs noted on EKG. Labs revealed stable hemoglobin of 8.7, BMP was within range, however lactic acid was elevated at 3.2. Patient received 1 L fluid bolus, repeat lactic acid was 1.0. Patient was placed on quality assurance monitor overnight, reportedly he experienced several episodes of bigeminy and trigeminy, but remained asymptomatic. Patient has previously been worked up for syncope by cardiology. Patient did not suffer any other syncopal episodes overnight and vitals were stable. Will consult cardiology for further evaluation for syncope.
[2018-09-28] MEDS: *HR* OxyCODONE Immed Rel 5 MG TABLET PO PRN (04:48)
[2018-09-28] MEDS ORDERED: Furosemide 20 MG/2 ML VIAL IVP ONE (07:59)
[2018-09-28] MEDS: Furosemide 20 MG TABLET PO SCH (08:36)
[2018-09-28 10:30] LABS: Hematocrit 25.1 % (37.5-50.1); Hemoglobin 7.9 g/dL (12.9-16.9)
[2018-09-28] MEDS: rOPINIRole 1 MG TABLET PO SCH ×3 (10:54→20:56)
--- NOTE | 2018-09-28 12:16 | Cardiology Consult Note ---
<Harman Fuentes - Last Filed: 09/28/18 12:33> Date of Encounter: 09/28/18 Time of Encounter: 12:12 Assessment and Plan (1) Syncope Current Visit: Yes Status: Acute History of multiple syncopal episodes. Reported syncopal episode while he was sitting in his chair during hospital stay. Patient states it felt like he fell asleep and fell out of his chair. Unfortunately he is not on telemetry at that time. No definitive cause of this event. He is now on telemetry and telemetry review shows normal sinus rhythm with a rate dependent intermittent left bundle branch block. Occasional PVCs seen. No NSVT. Holter monitor completed 09/13/18 showed multiple runs of NSVT up to 23 beats. He was recommended by his junior art director to have a heart catheterization for further ischemic evaluation. Recent stress test was negative for ischemia. TTE 07/2018EF 65%. There was mild mitral regurgitation and mild tricuspid regurgitation. LHC R/B/A reviewed with patient. Plan for LHC when cleared from surgery. Today he is noted to have anemia with a hemoglobin of 7.4, post operative anemia. Bloody drainage seen in REHAN drain. We will likely need to wait a few days prior to procedure. Increase beta amina as tolerated. Also noted to have acute post-operative anemia and hypotension around the time of event. Monitor closely Qualifiers: Syncope type: unspecified Qualified Code(s): R55 - Syncope and collapse (2) NSVT (nonsustained ventricular tachycardia) Current Visit: Yes Status: Acute H/o NSVT seen on recent holter. Restart metoprolol as tolerated. Keep potassium at 4.0 and magnesium at 2.0 or above. (3) Left bundle branch block Current Visit: No Status: Chronic H/o LBBB (4) DVT (deep venous thrombosis) Current Visit: Yes Status: Chronic Reported to have history of DVT on xarelto. Recs per primary team. Patient noted to have decreasing Hgb. Will recheck H&H. will need to hold xarelto for LHC. Qualifiers: DVT location: lower extremity Affected thrombotic vein of extremity: unspecified vein of extremity Chronicity: unspecified Laterality: un specified laterality Qualified Code(s): I82.409 - Acute embolism and thro mbosis of unspecified deep veins of unspecified lower extremity Discussion w patient/family: The assessment and plan as outlined above was discussed with the patient and/or family members who expressed understanding and agreement. All questions were answered. Thank you for involving us in the care of your patient. Please call with any questions. History of Present Illness Consult date: 09/28/18 Requesting physician: Carolee Cota Consult reason: syncope Chief complaint: falling out of chair History of present illness: Mr. De La Fuente is a 73 year old male here after undergoing left shoulder revision with Dr. Olivia. Cardiology consulted after he developed a syncopal event while sitting in a bedside chair. He has a history of syncope and was undergoing workup in the outpatient setting. He was recently found to have long runs of NSVT and was recommended for cardiac catheterization. He denies prior history of CAD. He does have a history of rate dependent LBBB, DVT, and HLD. Patient states he was sitting in his chair when it felt like he fell asleep and he fell over onto the floor. He does have a history of multiple syncopal episodes including one while driving. He denies chest pain or shortness of breath. Denies orthopnea, PND, or edema. Past Med Surg Social Fam HX - Past Medical History Medical history: aortic aneurysm, arthritis, DVT, GERD, hyperlipidemia, pulmonary embolus, seizures Additional medical history: RLS Psychiatric history: no psych history - Past Surgical History Surgical History: hip replacement, knee replacement Additional surgical history: left wrist. left shoulder replacement and revision. Left ORIF humerus - Social History Smoking Status: Unknown if ever smoked Smokeless Tobacco Status: No Alcohol use: none Drug use: none - Family History Mother Hx Family Cardiac Disorders: Yes (htn) Hx Family Respiratory Disorders: No Father Adopted: No Family Member Ethnicity: Non- Living Status: Hx Family Cardiac Disorders: Yes Hx Family Respiratory Disorders: No Hx Family Cancer: No Hx Family GI Disorders: Yes (PUDx) Hx Family Endocrine Disorder: No Hx Family Neuromuscular Disorders: No Hx Family Neurologic Disorders: No Hx Family HEENT Disorders: No Hx Family Autoimmune Disorders: No Brother Hx Family Cardiac Disorders: Yes (CAD) Medications and Allergies Ferrous Sulfate [Iron] 325 mg PO DAILY 04/05/18 [History] Furosemide [Lasix] 20 mg PO DAILY 04/05/18 [History] Pantoprazole Sodium [Protonix] 40 mg PO DAILY 04/05/18 [History] Phenytoin Sodium Extended [Dilantin] 200 mg PO TID 04/05/18 [History] Primidone [Mysoline] 250 mg PO BID 04/05/18 [History] Rivaroxaban [Xarelto] 15 mg PO BID 04/05/18 [History] Ropinirole HCl [Requip] 5 mg PO TID 04/05/18 [History] diazePAM [Valium] 5 mg PO DAILY PRN 04/05/18 [History] OxyCODONE Immed Rel [Roxicodone 5 MG] 5 mg PO Q6HR PRN 5 Days #20 tablet 09/27/18 [Rx] Allergy/AdvReac Type Severity Reaction Status Date / Time Penicillins [PCN] Allergy See Verified 08/09/18 09:29 Comments Sulfa (Sulfonamide Allergy See Verified 08/09/18 09:29 Antibiotics) Comments All Systems Review: The remainder of the systems were reviewed and are negative Physical Examination Vital Signs, Last 4 Hours Temp Pulse Resp BP Pulse Ox 09/28/18 11:55 98.0 F 82 16 103/62 95 General: Conversant, No Apparent Distress HEENT: Atraumatic, Normocephaly, Mucus Membranes Moist Neck: No JVD, Normal carotid pulses Cardiac: Reg Rate and Rhythm, Normal S1 and S2, No Murmur Lungs: Normal Breath Sounds, No Wheeze, Rales, Rhonchi Neuro: Alert and responsive, No focal deficits noted Abdomen: Soft, Non-Tender Skin: No rashes noted on visualized skin Musculoskeletal: No Chest Wall Tenderness, Other (Left shoulder brace intact drain intact with bloody drainage) Extremities: No Clubbing, No Cyanosis, No Edema, Normal Pulses Results 09/28/18 10:20 09/28/18 02:51 Lab Results 09/27/18 09/27/18 09/28/18 22:49 22:49 02:51 WBC 10.0 D Hgb 8.7 L 7.4 L Hct 28.2 L 23.4 L Plt Count 334 Sodium 135 L Potassium 3.8 Chloride 102 Carbon Dioxide 20 L BUN 17 Creatinine 0.76 Glucose 142 H Calcium 7.8 L 09/28/18 09/28/18 02:51 10:20 WBC Hgb 7.9 L Hct 25.1 L Plt Count Sodium 132 L Potassium 3.8 Chloride 105 Carbon Dioxide 22 L BUN 16 Creatinine 0.67 L Glucose 165 H Calcium 7.4 L - Imaging and Cardiology Stress Test: report reviewed Echo: report reviewed - EKG Interpretation EKG results cardiology: personally reviewed Consult Discharge Plan - Plan Referrals: Aliyah Torres, PLASTIC AND RECONSTRUCTIVE SURGEON [Primary Care Provider] - <BernabeFlo thomas A - Last Filed: 09/29/18 08:54> Date of Encounter: 09/29/18 - Attending Attestation I have personally performed a face to face evaluation on this patient. I have reviewed and agree with the documented findings and care plan as documented by the PLASTIC AND RECONSTRUCTIVE SURGEON. History and Exam by me shows: 73-year-old male with history of DVT on Xarelto, admitted for L shoulder surgery, noted to have a brief episode of what appears to be vasovagal syncope. He has history of NSVT on Holter monitor done 2 weeks ago. He had a negative stress test in July 2018. Echo shows preserved EF, Normal right ventricular structure and function, no significant valvular heart disease. He was offered a workup of his ventricular arrhythmias with a cardiac MRI or cardiac catheterization. He states that he would decide on further testing/follow-up after his shoulder is fully healed. He was instructed to present to the emergency room if he has any further episode of syncope, and to call our office to schedule aforementioned tests when he is ready. Thanks, Fol Carroll MD [facility] Assessment and Plan Discussion w patient/family: The assessment and plan as outlined above was discussed with the patient and/or family members who expressed understanding and agreement. All questions were answered. Thank you for involving us in the care of your patient. Please call with any questions. History of Present Illness History of present illness: Mr. De La Fuente is a 73 year old male All Systems Review: The remainder of the systems were reviewed and are negative Physical Examination Vital Signs, Last 4 Hours Temp Pulse Resp BP Pulse Ox 09/29/18 08:26 98.0 F 98 16 185/129 96 Results 09/29/18 07:45 09/29/18 07:45 Lab Results 09/28/18 09/29/18 09/29/18 10:20 07:45 07:45 Hgb 7.9 L 8.1 L Hct 25.1 L 25.9 L Sodium 135 L Potassium 4.1 Chloride 103 Carbon Dioxide 25 BUN 10 Creatinine 0.56 L Glucose 110 H Calcium 8.1 L
--- NOTE | 2018-09-28 13:25 | Orthopedics Progress Note ---
Date of Encounter: 09/28/18 Time of Encounter: 13:24 Subjective Interval history: No overnight issues. Pain is controlled. No nausea/vomiting. No CP/SOB. Vitals reviewed Extremity exam: Dressing clean, dry and intact No erythema or drainage Distally neurovascularly intact to motor/sensory exam No calf pain or tenderness s/p left revision reverse TSA Continue current management PO pain and nausea control Up with PT - no shoulder motion Plan for PICC line for iv atbx Objective Vital signs: Vital Signs Temp Pulse Resp BP Pulse Ox 09/28/18 11:55 98.0 F 82 16 103/62 95 09/28/18 07:07 97.9 F 89 16 126/63 96 09/28/18 02:16 98.3 F 95 16 121/68 96 09/27/18 23:13 98.1 F 80 16 143/83 95 09/27/18 21:45 97 09/27/18 18:29 98.2 F 99 16 98/65 97 09/27/18 15:15 97.4 F L 92 18 96/60 94 09/27/18 14:00 100 14 109/63 99 Intake and Output 09/27/18 09/28/18 09/28/18 23:59 07:59 15:59 Intake Total 240 / 240 1250 / 1250 370 / 370 Output Total 10 / 10 250 / 250 Balance 230 / 230 1000 / 1000 370 / 370 Intake: IV Fluids 1250 / 1250 250 / 250 0.9 % Sodium Chloride 1,000 ML 1000 / 1000 @ 999 mls/hr IVC .Q1H1M ONE Rx# :[id number] Vancocin 1,250 MG In 0.9 % 250 / 250 250 / 250 Sodium Chloride 250 ML @ 166.67 mls/hr IVPB Q12H [facility] Rx#: [id number] Oral 240 / 240 120 / 120 Output: Urine 0 / 0 250 / 250 Wound Drainage 10 / 10 Left Shoulder 10 10 Other: Meal Dinner Breakfast Percent of Meal Consumed 50% 95% # Voids 1 Weight 89 kg Patient Weight 09/28/18 23:59 Weight 89 kg - Labs CBC & BMP: 09/28/18 10:20 09/28/18 02:51 Labs: Abnormal lab results RBC 3.34 M/mcL (4.19-5.50) L 09/27/18 22:49 Hgb 7.9 g/dL (12.9-16.9) L 09/28/18 10:20 Hct 25.1 % (37.5-50.1) L 09/28/18 10:20 MCH 26.0 pg (28.0-33.3) L 09/27/18 22:49 MCHC 30.9 g/dL (31.6-35.5) L 09/27/18 22:49 RDW 16.1 % (11.5-14.5) H 09/27/18 22:49 MPV 8.3 fL (9.4-12.4) L 09/27/18 22:49 Sodium 132 mEq/L (136-145) L 09/28/18 02:51 Carbon Dioxide 22 mEq/L (23-29) L 09/28/18 02:51 Creatinine 0.67 mg/dL (0.70-1.30) L 09/28/18 02:51 Glucose 165 mg/dL (70-105) H 09/28/18 02:51 POC Glucose 124 mg/dL (70-99) H 09/27/18 22:34 Calculated Osmolality 279 (280-300) L 09/28/18 02:51 Calcium 7.4 mg/dL (8.6-10.3) L 09/28/18 02:51 Phenytoin 7.3 mcg/mL (10.0-20.0) L 09/27/18 22:49 Consult Discharge Plan - Plan Referrals: Aliyah Torres, ZIYAD [Primary Care Provider] -
[2018-09-28] MEDS: *HR* Rivaroxaban 10 MG TABLET PO SCH (16:48)
[2018-09-29] MEDS: traMADol 50 MG TABLET PO PRN (05:40)
[2018-09-29 08:19] LABS: Hematocrit 25.9 % (37.5-50.1); Hemoglobin 8.1 g/dL (12.9-16.9)
[2018-09-29 08:33] LABS: BUN/Creatinine Ratio 18 (6-26); Blood Urea Nitrogen 10 mg/dL (8-23); Calcium 8.1 mg/dL (8.6-10.3); Carbon Dioxide 25 mEq/L (23-29); Chloride 103 mEq/L (98-107); Glucose 110 mg/dL (70-105); Osmolality,Calculated 280 (280-300); Potassium 4.1 mEq/L (3.5-5.1); Sodium 135 mEq/L (136-145); eGFR For Non-African Americans > 60 (> 60)
[2018-09-29] MEDS: Ringers Solution, Lactated 1,000 ML IVC SCH ×2 (08:50→11:49)
[2018-09-29] MEDS: Furosemide 20 MG TABLET PO SCH (08:57)
[2018-09-29] MEDS: rOPINIRole 1 MG TABLET PO SCH ×3 (08:57→19:53)
--- NOTE | 2018-09-29 09:15 | Orthopedics Progress Note ---
Date of Encounter: 09/29/18 Time of Encounter: 09:15 Subjective Interval history: No overnight issues. Pain is controlled. No nausea/vomiting. No CP/SOB. Vitals reviewed Extremity exam: Dressing clean, dry and intact No erythema or drainage Distally neurovascularly intact to motor/sensory exam No calf pain or tenderness s/p left revision reverse TSA Continue current management PO pain and nausea control Up with PT - no shoulder motion PICC line for iv atbx Objective Vital signs: Vital Signs Temp Pulse Resp BP Pulse Ox 09/29/18 08:26 98.0 F 98 16 185/129 96 09/29/18 04:27 98.0 F 81 14 120/62 95 09/28/18 22:29 98.5 F 66 14 116/61 98 09/28/18 20:06 99.0 F 99 16 119/72 95 09/28/18 15:53 98.1 F 78 16 120/71 97 09/28/18 11:55 98.0 F 82 16 103/62 95 Intake and Output 09/28/18 09/29/18 09/29/18 23:59 07:59 15:59 Intake Total 300 / 300 0 / 0 Output Total 120 / 120 500 / 500 Balance 180 / 180 -500 / -500 Intake: IV Fluids 250 / 250 Vancocin 1,250 MG In 0.9 % 250 / 250 Sodium Chloride 250 ML @ 166.67 mls/hr IVPB Q12H [facility] Rx#: [id number] Oral 50 / 50 0 / 0 Output: Urine 0 / 0 475 / 475 Wound Drainage 120 / 120 25 / 25 Left Shoulder 120 / 120 25 / 25 Other: Weight 89.78 kg Patient Weight 09/29/18 23:59 Weight 89.78 kg - Labs CBC & BMP: 09/29/18 07:45 09/29/18 07:45 Labs: Abnormal lab results RBC 3.34 M/mcL (4.19-5.50) L 09/27/18 22:49 Hgb 8.1 g/dL (12.9-16.9) L 09/29/18 07:45 Hct 25.9 % (37.5-50.1) L 09/29/18 07:45 MCH 26.0 pg (28.0-33.3) L 09/27/18 22:49 MCHC 30.9 g/dL (31.6-35.5) L 09/27/18 22:49 RDW 16.1 % (11.5-14.5) H 09/27/18 22:49 MPV 8.3 fL (9.4-12.4) L 09/27/18 22:49 Sodium 135 mEq/L (136-145) L 09/29/18 07:45 Creatinine 0.56 mg/dL (0.70-1.30) L 09/29/18 07:45 Glucose 110 mg/dL (70-105) H 09/29/18 07:45 POC Glucose 124 mg/dL (70-99) H 09/27/18 22:34 Calcium 8.1 mg/dL (8.6-10.3) L 09/29/18 07:45 Vancomycin Trough 17 mcg/mL (5-10) H 09/29/18 07:45 Phenytoin 7.3 mcg/mL (10.0-20.0) L 09/27/18 22:49 Consult Discharge Plan - Plan Referrals: Aliyah Torres, CLASS A LINEMAN [Primary Care Provider] -
--- NOTE | 2018-09-29 15:55 | Cardiology Progress Note ---
Date of Encounter: 09/29/18 Time of Encounter: 15:51 Assessment and Plan (1) Syncope Current Visit: Yes Status: Acute History of multiple syncopal episodes. Reported syncopal episode while he was sitting in his chair during hospital stay. Patient states it felt like he fell asleep and fell out of his chair. Unfortunately he is not on telemetry at that time. No definitive cause of this event. He is now on telemetry and telemetry review shows normal sinus rhythm with a rate dependent intermittent left bundle branch block. Overnight there was a long period of rate dependent LBBB with intermittent short runs NSVT. Holter monitor completed 09/13/18 showed multiple runs of NSVT up to 23 beats. He was recommended by his skin piler to have a heart catheterization for further ischemic evaluation. Recent stress test was negative for ischemia. TTE 07/2018EF 65%. There was mild mitral regurgitation and mild tricuspid regurgitation. LHC was recommended in out-pt setting. We discussed completing while he is here but declines. States that he will recover from his shoulder surgery and then undergo LHC in the future. R/B/A reviewed with patient. Increase beta amina as tolerated. Increased to 50 mg BID. Also noted to have acute post-operative anemia and hypotension around the time of event. Monitor closely Qualifiers: Syncope type: unspecified Qualified Code(s): R55 - Syncope and collapse (2) NSVT (nonsustained ventricular tachycardia) Current Visit: Yes Status: Acute H/o NSVT seen on recent holter. Intermittent short runs NSVT up to 12 beats seen overnight. Metoprolol increased. Keep potassium at 4.0 and magnesium at 2.0 or above. Potassium given yesterday. Recent stress test negative for ischemia. TTE shows preserved EF. (3) Left bundle branch block Current Visit: No Status: Chronic H/o LBBB (4) DVT (deep venous thrombosis) Current Visit: Yes Status: Chronic Reported to have history of DVT on xarelto. Recs per primary team. Hgb stable. Qualifiers: DVT location: lower extremity Affected thrombotic vein of extremity: unspecified vein of extremity Chronicity: unspecified Laterality: unspecified laterality Qualified Code(s): I82.409 - Acute embolism and thrombosis of unspecified deep veins of unspecified lower extremity Discussion w patient/family: The assessment and plan as outlined above was discussed with the patient and/or family members who expressed understanding and agreement. All questions were answered. Thank you for involving us in the care of your patient. Please call with any questions. Subjective Principal diagnosis: NSVT Interval history: Mr. De La Fuente denies recurrent syncopal even. Denies chest pain or SOB. Objective Vital Signs Temp Pulse Resp BP Pulse Ox 09/29/18 08:26 98.0 F 98 16 185/129 96 09/29/18 04:27 98.0 F 81 14 120/62 95 09/28/18 22:29 98.5 F 66 14 116/61 98 09/28/18 20:06 99.0 F 99 16 119/72 95 09/28/18 15:53 98.1 F 78 16 120/71 97 Intake and Output 09/28/18 09/29/18 09/29/18 23:59 07:59 15:59 Intake Total 300 / 300 0 / 0 490 / 490 Output Total 120 / 120 500 / 500 633 / 633 Balance 180 / 180 -500 / -500 -143 / -143 Intake: IV Fluids 250 / 250 250 / 250 Vancocin 1,250 MG In 0.9 % 250 / 250 250 / 250 Sodium Chloride 250 ML @ 166.67 mls/hr IVPB Q12H [facility] Rx#: [id number] Oral 50 / 50 0 / 0 240 / 240 Output: Urine 0 / 0 475 / 475 625 / 625 Wound Drainage 120 / 120 25 / 25 8 / 8 Left Shoulder 120 / 120 25 / 25 8 / 8 Other: Meal Breakfast Percent of Meal Consumed 100% Weight 89.78 kg Patient Weight 09/29/18 23:59 Weight 89.78 kg General: Conversant, No Apparent Distress HEENT: Atraumatic, Normocephaly, Mucus Membranes Moist Neck: No JVD, Normal carotid pulses Cardiac: Reg Rate and Rhythm, Normal S1 and S2, No Murmur Lungs: Normal Breath Sounds, No Wheeze, Rales, Rhonchi Neuro: Alert and responsive, No focal deficits noted Abdomen: Soft, Non-Tender Skin: No rashes noted on visualized skin Musculoskeletal: No Chest Wall Tenderness Extremities: No Clubbing, No Cyanosis, No Edema, Normal Pulses, Other (Left arm in sling with REHAN drain) Results 09/29/18 07:45 09/29/18 07:45 Lab Results 09/29/18 09/29/18 07:45 07:45 Hgb 8.1 L Hct 25.9 L Sodium 135 L Potassium 4.1 Chloride 103 Carbon Dioxide 25 BUN 10 Creatinine 0.56 L Glucose 110 H Calcium 8.1 L Magnesium 2.0 - Imaging and Cardiology Echo: report reviewed - EKG Interpretation EKG results cardiology: personally reviewed Consult Discharge Plan - Plan Referrals: Aliyah Torres, MANAGER PRINT [Primary Care Provider] -
[2018-09-29] MEDS: *HR* Rivaroxaban 10 MG TABLET PO SCH (17:45)
[2018-09-30] MEDS: *HR* OxyCODONE Immed Rel 5 MG TABLET PO PRN ×2 (04:05→08:34)
[2018-09-30 04:36] LABS: Hematocrit 23.3 % (37.5-50.1); Hemoglobin 7.4 g/dL (12.9-16.9); Mean Corpuscular HGB Conc 31.8 g/dL (31.6-35.5); Mean Corpuscular Hemoglobin 26.3 pg (28.0-33.3); Mean Corpuscular Volume 82.9 fL (83.0-100.0); Mean Platelet Volume 8.1 fL (9.4-12.4); Platelet Count 235 K/mcL (140-400); Red Blood Count 2.81 M/mcL (4.19-5.50); Red Cell Distribution Width 16.6 % (11.5-14.5)
[2018-09-30 04:50] LABS: BUN/Creatinine Ratio 19 (6-26); Blood Urea Nitrogen 11 mg/dL (8-23); Calcium 8.2 mg/dL (8.6-10.3); Carbon Dioxide 26 mEq/L (23-29); Chloride 104 mEq/L (98-107); Glucose 114 mg/dL (70-105); Magnesium 1.9 mg/dL (1.6-2.6); Osmolality,Calculated 276 (280-300); Potassium 3.8 mEq/L (3.5-5.1); Sodium 133 mEq/L (136-145); eGFR For Non-African Americans > 60 (> 60)
--- NOTE | 2018-09-30 06:50 | Orthopedics Progress Note ---
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 Current Visit: Yes Status: Acute Qualifiers: Encounter type: subsequent encounter Qualified Code(s): T84.59XD - Infection and inflammatory reaction due to other internal joint prosthesis, subsequent encounter; Z96.619 - Presence of unspecified artificial shoulder joint (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 Afebrile vital signs stable. Operative extremity: Neurovascularly intact Dressing clean dry and intact Calves nontender Assessment and plan: Continue with postoperative care Hemoglobin 7.4 transfuse 2 units pulled REHAN drain today cultures positive staph aureus Objective Vital signs: Vital Signs Temp Pulse Resp BP Pulse Ox 09/30/18 03:28 97.5 F L 80 18 135/74 98 09/30/18 00:22 97.5 F L 80 16 148/84 98 09/29/18 20:47 97.8 F 89 14 108/66 94 09/29/18 16:12 97.5 F L 88 16 128/71 94 09/29/18 08:26 98.0 F 98 16 185/129 96 Intake and Output 09/29/18 09/29/18 09/30/18 15:59 23:59 07:59 Intake Total 490 / 490 550 / 550 50 / 50 Output Total 1133 / 1133 500 / 500 44 / 44 Balance -643 / -643 50 / 50 6 / 6 Intake: IV Fluids 250 / 250 Vancocin 1,250 MG In 0.9 % 250 / 250 Sodium Chloride 250 ML @ 166.67 mls/hr IVPB Q12H [facility] Rx#: [id number] Oral 240 / 240 550 / 550 50 / 50 Output: Urine 1125 / 1125 500 / 500 0 / 0 Wound Drainage 8 / 8 0 / 0 44 / 44 Left Shoulder 8 / 8 0 / 0 Other: Meal Breakfast Dinner Percent of Meal Consumed 100% 50% Weight 89.88 kg Patient Weight 09/30/18 23:59 Weight 89.88 kg - Labs CBC & BMP: 09/30/18 04:06 09/30/18 04:06 Labs: Abnormal lab results RBC 2.81 M/mcL (4.19-5.50) L 09/30/18 04:06 Hgb 7.4 g/dL (12.9-16.9) L 09/30/18 04:06 Hct 23.3 % (37.5-50.1) L 09/30/18 04:06 MCV 82.9 fL (83.0-100.0) L 09/30/18 04:06 MCH 26.3 pg (28.0-33.3) L 09/30/18 04:06 RDW 16.6 % (11.5-14.5) H 09/30/18 04:06 MPV 8.1 fL (9.4-12.4) L 09/30/18 04:06 Sodium 133 mEq/L (136-145) L 09/30/18 04:06 Creatinine 0.59 mg/dL (0.70-1.30) L 09/30/18 04:06 Glucose 114 mg/dL (70-105) H 09/30/18 04:06 POC Glucose 124 mg/dL (70-99) H 09/27/18 22:34 Calculated Osmolality 276 (280-300) L 09/30/18 04:06 Calcium 8.2 mg/dL (8.6-10.3) L 09/30/18 04:06 Vancomycin Trough 17 mcg/mL (5-10) H 09/29/18 07:45 Phenytoin 7.3 mcg/mL (10.0-20.0) L 09/27/18 22:49 Consult Discharge Plan - Plan Referrals: Aliyah Torres, WET ROOM SUPERVISOR [Primary Care Provider] -
[2018-09-30] MEDS ORDERED: Acetaminophen IV 1,000 MG/100 ML INFUS..BTL IVPB PRN (06:52)
[2018-09-30] MEDS: traMADol 50 MG TABLET PO PRN (07:03)
[2018-09-30] MEDS: rOPINIRole 1 MG TABLET PO SCH ×3 (08:33→21:10)
[2018-09-30] MEDS: Furosemide 20 MG TABLET PO SCH (08:34)
[2018-09-30] MEDS: 0.9 % Sodium Chloride 250 ML IVC SCH ×2 (08:36→20:04)
--- NOTE | 2018-09-30 15:25 | Cardiology Progress Note ---
Date of Encounter: 09/30/18 Time of Encounter: 15:15 Assessment and Plan (1) Syncope Current Visit: Yes Status: Acute History of multiple syncopal episodes in the past. Reported syncopal episode while he was sitting in his chair during hospital stay. Patient states it felt like he fell asleep and fell out of his chair. Unfortunately he was not on te lemetry at that time. No definitive cause of this event. He was hypotensive and had acute anemia at the time. He is now on telemetry and telemetry review showed normal sinus rhythm with a rate dependent intermittent left bundle branch block. Small run NSVT was seen 09/29/18. His home dose of metoprolol was restarted and increased. Potassium was given. Telemetry review today shows SR with rate dependent LBBB, No Non sustained VT seen. I did review rhythm strips with our hard tile setter Dr. Yves Dial. No definite NSVT, appears to be rate dependent LBBB. Agrees with LHC recommendation. Holter monitor completed 09/13/18 showed multiple runs of NSVT up to 23 beats. Recent stress test was negative for ischemia. TTE 07/2018EF 65%. There was mild mitral regurgitation and mild tricuspid regurgitation. LHC was recommended in out-pt setting. We discussed completing while in-pt but he declines. States that he will recover from his shoulder surgery and then undergo LHC in the future. Risk verses benefit discussed. He agrees to follow closely out-pt to coordinate. Continue metoprolol. keep potassium above 4.0 and mag above 2.0. Cardiology will sign off. Call with questions. Qualifiers: Syncope type: unspecified Qualified Code(s): R55 - Syncope and collapse (2) NSVT (nonsustained ventricular tachycardia) Current Visit: Yes Status: Acute H/o NSVT seen on recent holter. Intermittent short runs NSVT up to 12 beats during stay. Metoprolol increased and no recurrent NSVT. Keep potassium at 4.0 and magnesium at 2.0 or above. Recent stress test negative for ischemia. TTE shows preserved EF. (3) Left bundle branch block Current Visit: No Status: Chronic H/o LBBB (4) DVT (deep venous thrombosis) Current Visit: Yes Status: Chronic Reported to have history of DVT on xarelto. Recs per primary team. REHAN drain deng christelle today. No active bleeding. Qualifiers: DVT location: lower extremity Affected thrombotic vein of extremity: unspecified vein of extremity Chronicity: unspecified Laterality: unspecified laterality Qualified Code(s): I82.409 - Acute embolism and thrombosis of unspecified deep veins of unspecified lower extremity Discussion w patient/family: The assessment and plan as outlined above was discussed with the patient and/or family members who expressed understanding and agreement. All questions were answered. Thank you for involving us in the care of your patient. Please call with any questions. Subjective Principal diagnosis: NSVT Interval history: Mr. De La Fuente denies recurrent syncopal even. Denies chest pain or SOB. Receiving blood again for anemia. On xarelto for history of multiple DVT. Objective Vital Signs, Last 4 Hours Temp Pulse Resp BP Pulse Ox 09/30/18 13:15 97.5 F L 82 16 100/70 97 09/30/18 13:11 98 F 83 16 98/62 98 09/30/18 13:06 91 16 112/74 92 09/30/18 13:02 16 93/53 94 General: Conversant, No Apparent Distress HEENT: Atraumatic, Normocephaly, Mucus Membranes Moist Neck: No JVD, Normal carotid pulses Cardiac: Reg Rate and Rhythm, Normal S1 and S2, No Murmur Lungs: Normal Breath Sounds, No Wheeze, Rales, Rhonchi Neuro: Alert and responsive, No focal deficits noted Abdomen: Soft, Non-Tender Skin: No rashes noted on visualized skin Musculoskeletal: No Chest Wall Tenderness Extremities: No Clubbing, No Cyanosis, No Edema, Normal Pulses Results 09/30/18 04:06 09/30/18 04:06 Lab Results 09/30/18 09/30/18 04:06 04:06 WBC 4.8 D Hgb 7.4 L Hct 23.3 L Plt Count 235 Sodium 133 L Potassium 3.8 Chloride 104 Carbon Dioxide 26 BUN 11 Creatinine 0.59 L Glucose 114 H Calcium 8.2 L Magnesium 1.9 - Imaging and Cardiology Stress Test: report reviewed Echo: report reviewed - EKG Interpretation EKG results cardiology: personally reviewed Consult Discharge Plan - Plan Referrals: Aliyah Torres, SIGN HANGER [Primary Care Provider] -
[2018-09-30] MEDS: *HR* Rivaroxaban 10 MG TABLET PO SCH (17:14)
--- NOTE | 2018-09-30 17:36 | Event Note ---
Date of Encounter: 09/30/18 Time of Encounter: 12:35 POD#3 Date of procedure: 09/27/18 Pre-op diagnosis: Infected left total shoulder replacement reverse Post-op diagnosis: same Procedure: Left Revision Total Shoulder replacement reverse Patient seen at bedside Sitting on edge of bed eating lunch Sling in place Patient states feeling well - asking how long will take to get blood products Bulky dressing in place to left shoulder - no drainage noted Sling in place Neurovascularly intact Labs and vitals reviewed Patient with arrhythmia - Appreciate cardiology input - awaiting final recommendations re: medication management Patient with S. Aureus on cultures --- sensitive to Vancomycin - will continue this via PICC with IV x 6 weeks Patient educated on importance of consistent antibiotic administration - verbalized understanding BEGIN shoulder motion Patient educated re: warning signs necessitating immediate attention - verbalized understanding. RE: Anemia - patient getting 2 units PRBCs today Discussed with patient importance of getting both units as well as tonight's dose of antibiotics - patient to stay tonight and plan for discharge following 3/5 AM administration of antibiotics -patient states complete agreement.
--- NOTE | 2018-10-01 06:45 | Orthopedics Progress Note ---
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 Current Visit: Yes Status: Acute Qualifiers: Encounter type: subsequent encounter Qualified Code(s): T84.59XD - Infection and inflammatory reaction due to other internal joint prosthesis, subsequent encounter; Z96.619 - Presence of unspecified artificial shoulder joint (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 Current Visit: Yes Status: Acute Qualifiers: Laterality: left Qualified Code(s): Z96.612 - Presence of left artificial shoulder joint (5) HTN (hypertension) Current Visit: No Status: Chronic Qualifiers: Hypertension type: unspecified Qualified Code(s): I10 - Essential (primary) hypertension (6) Left bundle branch block Current Visit: No Status: Chronic (7) Seizure disorder Current Visit: No Status: Chronic (8) Acute blood loss anemia Current Visit: Yes Status: Acute (9) NSVT (nonsustained ventricular tachycardia) Current Visit: Yes Status: Acute Subjective Principal diagnosis: NSVT Interval history: Patient was seen this morning doing well without complaints. Afebrile vital signs stable. Operative extremity: Neurovascularly intact Dressing clean dry and intact Calves nontender Assessment and plan: Continue with postoperative care Plan for discharge today Objective Vital signs: Vital Signs Temp Pulse Resp BP Pulse Ox 10/01/18 06:32 97.6 F 110 18 167/88 96 10/01/18 03:41 70 15 145/87 97 09/30/18 23:25 98.1 F 71 18 127/74 98 09/30/18 19:53 98.1 F 88 17 137/70 97 09/30/18 17:15 97.6 F 88 16 98 09/30/18 17:10 16 139/81 97 09/30/18 17:00 78 16 137/83 92 09/30/18 16:54 97.9 F 72 16 137/83 92 09/30/18 15:35 97.8 F 72 16 142/74 90 09/30/18 13:17 86 16 108/50 94 03/04/19 13:15 97.5 F L 82 16 100/70 97 09/30/18 13:11 98 F 83 16 98/62 98 09/30/18 13:06 91 16 112/74 92 09/30/18 13:02 16 93/53 94 09/30/18 08:30 99.1 F 88 16 123/57 96 Intake and Output 09/30/18 09/30/18 10/01/18 15:59 23:59 07:59 Intake Total 1300 / 1300 550 / 550 Output Total 1230 / 1230 0 / 0 200 / 200 Balance 70 / 70 550 / 550 -200 / -200 Intake: IV Fluids 250 / 250 250 / 250 0.9 % Sodium Chloride 250 ML @ 250 / 250 25 mls/hr IVC .Q10H [facility] Rx#: [id number] Vancocin 1,250 MG In 0.9 % 250 / 250 Sodium Chloride 250 ML @ 166.67 mls/hr IVPB Q12H [facility] Rx#: [id number] Oral 350 / 350 Blood Product 700 / 700 300 / 300 Rbcs Leuko Poor As-1 Unit 350 / 350 [id number] Rbcs Leuko Poor As-1 Unit 300 / 300 [id number] Output: Urine 1200 / 1200 200 / 200 Wound Drainage 30 / 30 0 / 0 Left Shoulder 30 / 30 0 / 0 Other: Meal Breakfast Percent of Meal Consumed 100% - Labs CBC & BMP: 09/30/18 04:06 09/30/18 04:06 Labs: Abnormal lab results RBC 2.81 M/mcL (4.19-5.50) L 09/30/18 04:06 Hgb 7.4 g/dL (12.9-16.9) L 09/30/18 04:06 Hct 23.3 % (37.5-50.1) L 09/30/18 04:06 MCV 82.9 fL (83.0-100.0) L 09/30/18 04:06 MCH 26.3 pg (28.0-33.3) L 09/30/18 04:06 RDW 16.6 % (11.5-14.5) H 09/30/18 04:06 MPV 8.1 fL (9.4-12.4) L 09/30/18 04:06 Sodium 133 mEq/L (136-145) L 09/30/18 04:06 Creatinine 0.59 mg/dL (0.70-1.30) L 09/30/18 04:06 Glucose 114 mg/dL (70-105) H 09/30/18 04:06 POC Glucose 124 mg/dL (70-99) H 09/27/18 22:34 Calculated Osmolality 276 (280-300) L 09/30/18 04:06 Calcium 8.2 mg/dL (8.6-10.3) L 09/30/18 04:06 Vancomycin Trough 17 mcg/mL (5-10) H 09/29/18 07:45 Phenytoin 7.3 mcg/mL (10.0-20.0) L 09/27/18 22:49 - VTE Reasons for not Prescribing Prophylaxis: Not indicated-Anticoagulated or INR therapeutic Documentation of Mechanical Device: Venous foot pump, device Consult Discharge Plan - Plan Referrals: Aliyah Torres, CLAIMS PROCESSOR [Primary Care Provider] -
[2018-10-01] MEDS: Furosemide 20 MG TABLET PO SCH (08:04)
[2018-10-01] MEDS: rOPINIRole 1 MG TABLET PO SCH ×3 (08:04→20:56)
[2018-10-01 09:42] LABS: Hematocrit 33.4 % (37.5-50.1)
[2018-10-01 09:47] LABS: Hemoglobin 10.8 g/dL (12.9-16.9)
[2018-10-01 09:50] LABS: BUN/Creatinine Ratio 16 (6-26); Blood Urea Nitrogen 10 mg/dL (8-23); Calcium 8.6 mg/dL (8.6-10.3); Carbon Dioxide 25 mEq/L (23-29); Chloride 102 mEq/L (98-107); Glucose 128 mg/dL (70-105); Osmolality,Calculated 281 (280-300); Potassium 3.8 mEq/L (3.5-5.1); Sodium 135 mEq/L (136-145); eGFR For Non-African Americans > 60 (> 60)
[2018-10-01] MEDS: *HR* Rivaroxaban 10 MG TABLET PO SCH (15:15)
--- NOTE | 2018-10-01 23:15 | Event Note ---
Date of Encounter: 10/01/18 Time of Encounter: 13:00 POD#4 Date of procedure: 09/27/18 Pre-op diagnosis: Infected left total shoulder replacement reverse Post-op diagnosis: same Procedure: Left Revision Total Shoulder replacement reverse Patient seen at bedside. Patient sitting in chair. Spouse at bedside. Sling in place Patient states feeling well - asking how long will need to use brace Bulky dressing in place to left shoulder - no drainage noted Sling in place Neurovascularly intact Labs and vitals reviewed Patient with arrhythmia - Appreciate cardiology input - final recommendations re: medication management: Continue metoprolol. keep potassium above 4.0 and mag above 2.0. Follow up oupatient for for continued evaluation and intervention discussion. Patient with S. Aureus on cultures --- sensitive to Vancomycin - will continue this via PICC with IV x 6 weeks S/w clinical pharmacist re: dosing with trough influence Patient educated on importance of consistent antibiotic administration - verbalized understanding BEGIN shoulder motion Patient educated re: warning signs necessitating immediate attention - verbalized understanding. RE: Anemia - patient got 2 units PRBCs 3/ - resolved 3/5 Discussed with patient importance of getting both units as well as tonight's dose of antibiotics - patient to stay tonight and plan for discharge following 3/5 AM administration of antibiotics -patient states complete agreement. Awaiting home health arrangement re: antibiotic delivery
--- NOTE | 2018-10-02 00:58 | Internal Medicine Consult Note ---
Date of Encounter: 10/02/18 Time of Encounter: 00:10 - Assessment and Plan (1) NSVT (nonsustained ventricular tachycardia) Current Visit: Yes Status: Acute Assessment and plan: 1. I ordered EKG, CMP, Magnesium, and serial troponins. 2. My resident ordered a one time dose of oral potassium with which I agree. 3. I formally consulted cardiology for further guidance and recommendations. I agree with cardiology he needs a [facility]. 4. Continue metoprolol as ordered by cardiology; note patient had not yet received his evening metoprolol when the episode of NSVT occurred tonight. 5. Will follow clinically and then defer to cardiology in the morning. Internal Medicine - CN: HPI - Data of Consult Requesting Physician: Juan Daniel Rangel MD - Consult Narrative Reason for consult: non-sustained V-TACH History of present illness: Mr. De La Fuente is a 73 year old male who is status post left shoulder surgery per Dr. Rangel. I was asked to see patient in consultation per Dr. Rangel's request as c ommunicated to me by nursing staff for concerns of nonsustained ventricular tachycardia as noted on monitoring coordinator. I noted on medical records review that cardiology has been following and co-managing patient. However, there has been no formal consultation order placed. Therefore, Dr. Rangel consulted the hospitalists [facility] to help co-manage patient's cardiac issues. Upon my assessment of the patient, he is having no symptoms other than some postoperative pain and limited mobility of his left shoulder. He denies any chest pain, heaviness, difficulty breathing, diaphoresis, nausea, or vomiting. He denies any prior cardiac history. Cardiology did recommend left heart catheterization this admission, but patient declined. He would like to pursue this as an outpatient once his shoulder heals. Patient denies any cardiac risk factors such as smoking, diabetes, hypertension, or family history. I tried to review an EKG, but there is no EKG available for review. Past Med Surg Social Fam HX - Past Medical History Attestation: Yes The following information was validated with the patient. Source: patient, old records reviewed Medical history: aortic aneurysm, arthritis, DVT, GERD, hyperlipidemia, pulmonary embolus, seizures Additional medical history: RLS Psychiatric history: no psych history - Past Surgical History Surgical History: hip replacement, knee replacement Additional surgical history: left wrist. left shoulder replacement and cleve ion. Left ORIF humerus - Social History Smoking Status: Never smoker Smokeless Tobacco Status: No Alcohol use: none Drug use: none Current living situation: Home Activity Level: Independent ambulation Recent Out of Country Travel Within the Last 8 Weeks: No - Family History Mother Hx Family Cardiac Disorders: Yes (htn) Hx Family Respiratory Disorders: No Father Adopted: No Family Member Ethnicity: Non- Living Status: Hx Family Cardiac Disorders: Yes Hx Family Respiratory Disorders: No Hx Family Cancer: No Hx Family GI Disorders: Yes (PUDx) Hx Family Endocrine Disorder: No Hx Family Neuromuscular Disorders: No Hx Family Neurologic Disorders: No Hx Family HEENT Disorders: No Hx Family Autoimmune Disorders: No Brother Hx Family Cardiac Disorders: Yes (CAD) - Constitutional Constitutional: no chills, no fever(s) - EENT Ears: no ear pain Nose, mouth and throat: no nasal congestion, no sore throat - Cardiovascular Cardiovascular ROS IM: no chest pain, no dyspnea, no lightheadedness, no orthopnea, no palpitations, no syncope - Respiratory Respiratory: no cough, no dyspnea, no hemoptysis, no chest congestion, no excessive phlegm production, no change in phlegm color - Gastrointestinal Gastrointestinal: no diarrhea, no hematemesis, no hematochezia, no melena, no nausea, no vomiting - Genitourinary Genitourinary ROS male: no dysuria, no flank pain, no hematuria, no nocturia - Musculoskeletal Musculoskeletal ROS IM: muscle cramps, no arthralgias, no back pain, no muscle weakness, no myalgias, no numbness - Integumentary Integumentary IM: no rash, no jaundice - Neurological Neurological ROS: no dizziness, no focal weakness, no frequent falls, no headache(s) - Psychiatric Psychiatric: no anxiety, no depression - Endocrine Endocrine IM: no cold intolerance, no heat intolerance, no polydipsia, no polyuria - Allergic/Immunologic Allergic/Immunologic: no GI upset with certain foods Internal Medicine - CN: Meds Ferrous Sulfate [Iron] 325 mg PO DAILY 04/05/18 [History] Furosemide [Lasix] 20 mg PO DAILY 04/05/18 [History] Pantoprazole Sodium [Protonix] 40 mg PO DAILY 04/05/18 [History] Primidone [Mysoline] 250 mg PO BID 09/07/18 [History] Rivaroxaban [Xarelto] 15 mg PO BID 04/05/18 [History] Ropinirole HCl [Requip] 5 mg PO TID PRN 04/05/18 [History] diazePAM [Valium] 5 mg PO DAILY PRN 04/05/18 [History] Benzonatate 100 mg PO TID PRN 09/29/18 [History] Metoprolol Succinate [Toprol Xl] 50 mg PO BID 09/29/18 [History] Montelukast [Singulair] 10 mg PO DAILY 09/29/18 [History] Phenytoin ER [Dilantin ER] 200 mg PO TID 09/29/18 [History] Vancomycin/0.9 % Sod Chloride [Vanco 1.25 gm/250 ml-0.9% NaCl] 1.25 gm IV Q12H 7 Days #14 plast..bag 10/01/18 [Rx] Allergy/AdvReac Type Severity Reaction Status Date / Time Penicillins [PCN] Allergy See Verified 09/29/18 12:18 Comments Sulfa (Sulfonamide Allergy See Verified 09/29/18 12:18 Antibiotics) Comments Hospitalist - CN: Exam - Constitutional Vitals: Temp Pulse Resp BP Pulse Ox 97.4 F L 69 17 155/79 96 10/01/18 23:37 10/01/18 23:37 10/01/18 23:37 10/01/18 23:37 10/01/18 23:37 General appearance IM: Present: cooperative, A&O X 3, pleasant, no acute distress, answers questions appropriately Exam: see below - Head Head exam: Present: normal inspection - Eye Eye exam: Present: EOMI, PERRL. Absent: scleral icterus Pupils: Present: normal accommodation - ENT ENT exam: Present: mucous membranes moist, normal exam, normal oropharynx - Neck Neck exam general surgery: Present: full ROM, supple. Absent: tenderness, nuchal rigidity, thyromegaly - Expanded Neck Exam Neck exam: Absent: tenderness, thyroid mass - Respiratory Respiratory exam: Present: CTAB. Absent: chest wall tenderness, rales, respiratory distress, rhonchi, wheezes - Cardiovascular Cardiovascular exam IM: Present: distant heart sounds, RRR, +S1, +S2. Absent: diastolic murmur, systolic murmur - GI/Abdominal GI/Abdominal exam IM: Present: normal bowel sounds, soft. Absent: guarding, mass, rebound, splenomegaly, tenderness - Extremities Exam Extremities exam IM: Present: normal capillary refill, warm, radial pulses palpable and symmetrical. Absent: calf tenderness, pedal edema, tenderness Additional comments: left shoulder in sling/immobilized - Neurological Exam Neurological exam: Present: alert, CN II-XII intact, oriented X3, no focal deficits, strengths equal and symetr throughout - Psychiatric Psychiatric exam: Present: normal affect, normal mood - Skin Skin exam IM: Present: dry, warm. Absent: rash Internal Medicine - CN: Reslt - Labs CBC & Chem 7: 10/01/18 09:12 10/01/18 09:12 Labs: Short CBC 10/01/18 Range/Units 09:12 Hgb 10.8 L D (12.9-16.9) g/dL Hct 33.4 L (37.5-50.1) % BMP 10/01/18 09:12 Sodium 135 L Potassium 3.8 Chloride 102 Carbon Dioxide 25 BUN 10 Creatinine 0.63 L Glucose 128 H Calcium 8.6 - Impressions Impressions Shoulder X-Ray 09/27/18 06:25 IMPRESSION: Normal alignment of left shoulder arthroplasty. No acute fracture or dislocation. Surgical drains are in place. D/ : / 09/27/2018 11:53:28 Sumeet Avila MD / [email or web address] Interpreting Provider: Sumeet Avila MD Consult Discharge Plan - Plan Referrals: Aliyah Torres, NUT STEAMER [Primary Care Provider] - Prescriptions: Vancomycin/0.9 % Sod Chloride [Vanco 1.25 gm/250 ml-0.9% NaCl] 1.25 gm IV Q12H 7 Days #14 plast..bag
[2018-10-02 02:17] LABS: Alanine Aminotransferase 12 Units/L (7-52); Albumin 2.9 g/dL (3.5-5.7); Albumin/Globulin Ratio 0.9 (1.1-2.2); Alkaline Phosphatase 151 Units/L (34-104); Aspartate Amino Transferase 13 Units/L (13-39); BUN/Creatinine Ratio 18 (6-26); Bilirubin,Total 0.3 mg/dL (0.3-1.0); Blood Urea Nitrogen 11 mg/dL (8-23); Calcium 8.4 mg/dL (8.6-10.3); Carbon Dioxide 25 mEq/L (23-29); Chloride 99 mEq/L (98-107); Globulin 3.2 g/dL (2.4-3.5); Glucose 123 mg/dL (70-105); Magnesium 1.9 mg/dL (1.6-2.6); Osmolality,Calculated 279 (280-300); Potassium 4.1 mEq/L (3.5-5.1); Sodium 134 mEq/L (136-145); Total Protein 6.1 g/dL (6.4-8.9); eGFR For Non-African Americans > 60 (> 60)
[2018-10-02 06:17] LABS: Hematocrit 32.6 % (37.5-50.1); Hemoglobin 10.7 g/dL (12.9-16.9)
--- NOTE | 2018-10-02 06:46 | Orthopedics Progress Note ---
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 Current Visit: Yes Status: Acute Qualifiers: Encounter type: subsequent encounter Qualified Code(s): T84.59XD - Infection and inflammatory reaction due to other internal joint prosthesis, subsequent encounter; Z96.619 - Presence of unspecified artificial shoulder joint (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 Current Visit: Yes Status: Acute Qualifiers: Laterality: left Qualified Code(s): Z96.612 - Presence of left artificial shoulder joint (5) HTN (hypertension) Current Visit: No Status: Chronic Qualifiers: Hypertension type: unspecified Qualified Code(s): I10 - Essential (primary) hypertension (6) Left bundle branch block Current Visit: No Status: Chronic (7) Seizure disorder Current Visit: No Status: Chronic (8) Acute blood loss anemia Current Visit: Yes Status: Resolved (9) NSVT (nonsustained ventricular tachycardia) Current Visit: Yes Status: Acute Subjective Principal diagnosis: NSVT Interval history: Patient was seen this morning doing well without complaints episodes of V. tach last night evaluated by hospitalist.. Afebrile vital signs stable. Operative extremity: Neurovascularly intact Dressing clean dry and intact Calves nontender Assessment and plan: Continue with postoperative care Plan for discharge today Objective Vital signs: Vital Signs Temp Pulse Resp BP Pulse Ox 10/02/18 04:30 98.0 F 77 17 144/84 96 10/01/18 23:37 97.4 F L 69 17 155/79 96 10/01/18 19:16 97.5 F L 79 16 146/85 96 10/01/18 14:20 97.9 F 83 18 151/96 10/01/18 10:57 99.1 F 73 18 123/85 94 Intake and Output 10/01/18 10/01/18 10/02/18 15:59 23:59 07:59 Intake Total 980 / 980 240 / 240 Output Total 300 / 300 1000 / 1000 850 / 850 Balance 680 / 680 -760 / -760 -850 / -850 Intake: IV Fluids 500 / 500 0.9 % Sodium Chloride 250 ML @ 250 / 250 25 mls/hr IVC .Q10H [facility] Rx#: [id number] Vancocin 1,250 MG In 0.9 % 250 / 250 Sodium Chloride 250 ML @ 166.67 mls/hr IVPB Q12H [facility] Rx#: [id number] Oral 480 / 480 240 / 240 Output: Urine 300 / 300 1000 / 1000 850 / 850 Other: Meal Lunch Dinner Percent of Meal Consumed 60% 50% Weight 90.5 kg Patient Weight 10/02/18 23:59 Weight 90.5 kg - Labs CBC & BMP: 10/02/18 06:01 10/02/18 01:42 Labs: Abnormal lab results RBC 2.81 M/mcL (4.19-5.50) L 09/30/18 04:06 Hgb 10.7 g/dL (12.9-16.9) L 10/02/18 06:01 Hct 32.6 % (37.5-50.1) L 10/02/18 06:01 MCV 82.9 fL (83.0-100.0) L 09/30/18 04:06 MCH 26.3 pg (28.0-33.3) L 09/30/18 04:06 RDW 16.6 % (11.5-14.5) H 09/30/18 04:06 MPV 8.1 fL (9.4-12.4) L 09/30/18 04:06 Sodium 134 mEq/L (136-145) L 10/02/18 01:42 Creatinine 0.62 mg/dL (0.70-1.30) L 10/02/18 01:42 Glucose 123 mg/dL (70-105) H 10/02/18 01:42 POC Glucose 124 mg/dL (70-99) H 09/27/18 22:34 Calculated Osmolality 279 (280-300) L 10/02/18 01:42 Calcium 8.4 mg/dL (8.6-10.3) L 10/02/18 01:42 Alkaline Phosphatase 151 Units/L (34-104) H 10/02/18 01:42 Serum Total Protein 6.1 g/dL (6.4-8.9) L 10/02/18 01:42 Albumin 2.9 g/dL (3.5-5.7) L 10/02/18 01:42 Albumin/Globulin Ratio 0.9 (1.1-2.2) L 10/02/18 01:42 Vancomycin Trough 24 mcg/mL (5-10) H 10/01/18 Unknown Phenytoin 7.3 mcg/mL (10.0-20.0) L 09/27/18 22:49 - VTE Reasons for not Prescribing Prophylaxis: Not indicated-Anticoagulated or INR therapeutic Documentation of Mechanical Device: Venous foot pump, device Consult Discharge Plan - Plan Referrals: Aliyah Torres, TRANSPLANT COORDINATOR [Primary Care Provider] - Prescriptions: Vancomycin/0.9 % Sod Chloride [Vanco 1.25 gm/250 ml-0.9% NaCl] 1.25 gm IV Q12H 7 Days #14 plast..bag
[2018-10-02] MEDS: Furosemide 20 MG TABLET PO SCH (09:57)
[2018-10-02] MEDS: rOPINIRole 1 MG TABLET PO SCH ×3 (09:57→21:41)
--- NOTE | 2018-10-02 10:53 | Cardiology Progress Note ---
Date of Encounter: 10/02/18 Time of Encounter: 09:30 Assessment and Plan (1) Syncope Current Visit: Yes Status: Acute Per cardiology: -History of multiple syncopal episodes in the past. Reported syncopal episode while he was sitting in his chair during hospital stay. Patient states it felt like he fell asleep and fell out of his chair. Unfortunately he was not on telemetry at that time. No definitive cause of this event. He was hypotensive and had acute anemia at the time. He is now on telemetry and telemetry review showed normal sinus rhythm with a rate dependent intermittent left bundle branch block. Small run NSVT was seen 09/29/18. --His home dose of metoprolol was restarted and increased. Potassium was given. Telemetry review today shows SR with rate dependent LBBB, No Non sustained VT seen. -Previously, rhythm strips reviewed with our applied psychology professor Dr. Yves Dial. No definite NSVT, appears to be rate dependent LBBB. Agrees with LHC recommendation. -Rhythm strips reviewed from last night and this am with , rate dependent left bundle branch block noted. NO non-sustained VT noted. -Holter monitor completed 09/13/18 showed multiple runs of NSVT up to 23 beats. Recent stress test was negative for ischemia. TTE 07/2018EF 65%. There was mild mitral regurgitation and mild tricuspid regurgitation. -Again, LHC was recommended in out-pt setting. We discussed completing while in-pt but he declines. States that he will recover from his shoulder surgery and then undergo LHC in the future. Risk verses benefit discussed. He agrees to follow closely out-pt to coordinate. -Continue metoprolol. keep potassium above 4.0 and mag above 2.0. -Cardiology will sign off. Call with questions. Qualifiers: Syncope type: unspecified Qualified Code(s): R55 - Syncope and collapse (2) Left bundle branch block Current Visit: No Status: Chronic Per cardiology: -H/o LBBB (3) NSVT (nonsustained ventricular tachycardia) Current Visit: Yes Status: Acute Per cardiology: -H/o NSVT seen on recent holter. Intermittent short runs NSVT up to 12 beats during stay. Metoprolol increased and no recurrent NSVT. Keep potassium at 4.0 and magnesium at 2.0 or above. -Recent stress test negative for ischemia. TTE shows preserved EF. -Follow up outpatient Discussion w patient/family: The assessment and plan as outlined above was discussed with the patient who expressed understanding and agreement. All questions were answered. Thank you for involving us in the care of your patient. Please call with any questions. Discussed and reviewed with . Subjective Principal diagnosis: NSVT Interval history: Patient denies chest pain. Denies increased shortness of breath. Objective Vital Signs Temperature 98.4 F 09/27/18 06:47 Pulse Rate 87 09/27/18 06:47 Respiratory Rate 18 09/27/18 06:47 Blood Pressure 130/78 09/27/18 06:47 O2 Sat by Pulse Oximetry 96 09/27/18 06:47 Temperature 97.8 F 10/02/18 06:45 Pulse Rate 83 10/02/18 06:45 Respiratory Rate 16 10/02/18 06:45 Blood Pressure 138/81 10/02/18 06:45 O2 Sat by Pulse Oximetry 96 10/02/18 06:45 General: Conversant, No Apparent Distress HEENT: Atraumatic, Normocephaly, Mucus Membranes Moist Neck: No JVD, Normal carotid pulses Cardiac: Reg Rate and Rhythm, Normal S1 and S2, No Murmur Lungs: Normal Breath Sounds, No Wheeze, Rales, Rhonchi Neuro: Alert and responsive, No focal deficits noted Abdomen: Soft, Non-Tender Skin: No rashes noted on visualized skin, Other (Left shoulder dressing noted. Left arm noted in sling. ) Musculoskeletal: No Chest Wall Tenderness Extremities: No Clubbing, No Cyanosis, No Edema, Normal Pulses Results 10/02/18 06:01 10/02/18 01:42 Lab Results Impressions Shoulder X-Ray 09/27/18 06:25 IMPRESSION: Normal alignment of left shoulder arthroplasty. No acute fracture or dislocation. Surgical drains are in place. D/ / 09/27/2018 11:53:28 Sumeet Avila MD / rustay Interpreting Provider: Sumeet Avila MD Active Medications Diazepam (Valium) 5 mg PO DAILY PRN PRN Reason: Anxiety Stop: 03/29/19 12:08 Last Admin: 10/01/18 05:38 Dose: 5 mg Docusate Sodium (Colace) 100 mg PO BID [facility]; Protocol Stop: 03/29/19 12:08 Last Admin: 10/02/18 10:00 Dose: Not Given Ferrous Sulfate (Ferrous Sulfate) 325 mg PO DAILY [facility] Stop: 03/29/19 12:08 Last Admin: 10/02/18 09:57 Dose: 325 mg Furosemide (Lasix) 20 mg PO DAILY [facility] Stop: 03/29/19 12:08 Last Admin: 10/02/18 09:57 Dose: 20 mg Lactated Ringer's (Lactated Ringers) 1,000 mls @ 75 mls/hr IVC .[id number] [facility] Stop: 03/29/19 12:08 Last Admin: 09/29/18 11:49 Dose: Not Given Sodium Chloride (0.9 % Sodium Chloride) 250 mls @ 25 mls/hr IVC .Q10H [facility] Stop: 04/01/19 06:46 Last Infusion: 10/01/18 10:39 Dose: Infused Acetaminophen (Ofirmev 1,000 Mg/100 Ml) 1,000 mg in 100 mls @ 400 mls/hr IVPB Q6HR PRN PRN Reason: Breakthrough Pain Stop: 04/01/19 12:01 Vancomycin HCl 1,000 mg/ (Sodium Chloride) 250 mls @ 166.67 mls/hr IVPB Q12H [facility] Stop: 03/29/19 20:01 Last Admin: 10/02/18 09:58 Dose: 166.7 mls/hr Magnesium Hydroxide (Milk Of Magnesia Conc) 5 ml PO HS PRN PRN Reason: Constipation Stop: 03/29/19 12:08 Metoprolol Tartrate (Lopressor) 50 mg PO BID [facility] Stop: 03/31/19 21:01 Last Admin: 10/02/18 09:57 Dose: 50 mg Omeprazole (Prilosec) 20 mg PO DAILY@0630 [facility] Stop: 03/29/19 12:08 Last Admin: 10/02/18 06:21 Dose: 20 mg Ondansetron HCl (Zofran) 4 mg IVP Q6HR PRN PRN Reason: Nausea And Vomiting Stop: 03/29/19 12:08 Oxycodone HCl (Roxicodone) 10 mg PO Q4HR PRN PRN Reason: Severe pain 7-10 Stop: 03/29/19 12:08 Last Admin: 09/30/18 08:34 Dose: 10 mg Oxycodone/Acetaminophen (Percocet 5/325) 1 each PO Q4HR PRN PRN Reason: Moderate Pain 4-6 Stop: 03/29/19 12:08 Last Admin: 09/28/18 00:01 Dose: 1 each Phenytoin (Dilantin Er) 200 mg PO TID [facility] Stop: 03/29/19 12:08 Last Admin: 10/02/18 09:57 Dose: 200 mg Primidone (Mysoline) 250 mg PO BID [facility] Stop: 03/29/19 12:08 Last Admin: 10/02/18 09:57 Dose: 250 mg Rivaroxaban (Xarelto) 20 mg PO DAILY@1700 [facility] Stop: 03/29/19 17:01 Last Admin: 10/01/18 15:15 Dose: 20 mg Ropinirole HCl (Requip) 5 mg PO TID [facility] Stop: 03/29/19 12:46 Last Admin: 10/02/18 09:57 Dose: 5 mg Senna (Senna) 17.2 mg PO HS PRN PRN Reason: Constipation Stop: 03/29/19 12:08 Temazepam (Restoril) 15 mg PO HS PRN; Protocol PRN Reason: Insomnia Stop: 03/29/19 12:08 Tramadol HCl (Ultram) 50 mg PO Q6HR PRN PRN Reason: Mild Pain 1-3 Stop: 03/29/19 12:08 Last Admin: 09/30/18 07:03 Dose: 50 mg Laboratory Tests 10/02/18 10/02/18 10/02/18 01:42 01:42 01:42 Hgb Potassium 4.1 Creatinine 0.62 L Magnesium 1.9 Troponin I < 0.03 10/02/18 10/02/18 06:01 07:56 Hgb 10.7 L Potassium Creatinine Magnesium Troponin I < 0.03 - Imaging and Cardiology Chest Xray: report reviewed Echo: report reviewed - EKG Interpretation EKG results cardiology: other (Telemetry reviewed with average HR previous 12 hours noted to be 75, SR. Intermittent Left bundle branch block noted.) - VTE Reasons for not Prescribing Prophylaxis: Not indicated-Anticoagulated or INR th erapeutic Documentation of Mechanical Device: Venous foot pump, device Consult Discharge Plan - Plan Referrals: Aliyah Torres, [employer] WORKER [Primary Care Provider] - Prescriptions: Vancomycin/0.9 % Sod Chloride [Vanco 1.25 gm/250 ml-0.9% NaCl] 1.25 gm IV Q12H 7 Days #14 plast..bag
--- NOTE | 2018-10-02 13:13 | Event Note ---
Date of Encounter: 10/02/18 Time of Encounter: 13:13 POD#5 Date of procedure: 09/27/18 Pre-op diagnosis: Infected left total shoulder replacement reverse Post-op diagnosis: same Procedure: Left Revision Total Shoulder replacement reverse Patient seen at bedside. Patient sitting in chair. Spouse at bedside. Sling in place Patient states feeling well overall Bulky dressing in place to left shoulder - no drainage noted Sling in place Neurovascularly intact Labs and vitals reviewed Patient with arrhythmia - Appreciate cardiology input - final recommendations re: medication management: Continue metoprolol. keep potassium above 4.0 and mag above 2.0. Follow up oupatient for for continued evaluation and intervention discussion as patient has again refused heart cath as recommended by cardiology. Patient states "I would like to focus on my shoulder before I do anything else". Reminded patient that while he has stated he wants to rehab his shoulder which is good, but that his heart is of great importance to allow him to use his shoulder. Patient and spouse verbalized understanding. Patient with S. Aureus on cultures --- sensitive to Vancomycin however with patient's reoccurrence of the NSVT concern re: antibiotic choice. Requesting Infectious disease assistance in antibiotic choice. Patient and spouse educated on importance of consistent antibiotic administration - verbalized understanding - Discussed that patient may require additional hospitalized time, but that pending infectious disease evaluation may require additional time. BEGIN shoulder motion BID pressure dressing changes Patient educated re: warning signs necessitating immediate attention - verbalized understanding. RE: Anemia - patient got 2 units PRBCs 3/4 - resolved 3/5 Awaiting infectious disease evaluation and recommendations and home health arrangement re: antibiotic delivery.
--- NOTE | 2018-10-02 14:15 | Infectious Disease Consult ---
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 Intra-Op cultures grew MSSA Ideally I would like to treat the patient with cefazolin/rifampin for at least 6-8 weeks probably followed by oral suppressive antibiotic for some time. This plan is complicated by the fact that the patient states penicillin allergy when he was a baby At this point attempt to give him cefazolin and see if he has any reaction to it. We will watch him very closely Patient really has a PICC line if he tolerates tonight cefazolin dose and tomorrow morning's we will discharge home on cefazolin 2 g IV every 8 hours based on his CrCl rifampin 450mg po bid Duration of treatment at least 6 weeks While on cefazolin and rifampin we need to check weekly CBC, BUN/Cr, LFTs Patient needs to follow-up with me in clinic 2 weeks post discharge Qualifiers: Encounter type: subsequent encounter Qualified Code(s): T84.59XD - Infection and inflammatory reaction due to other internal joint prosthesis, subsequent encounter; Z96.619 - Presence of unspecified artificial shoulder joint (2) Drug allergy, antibiotic Status: Acute Assessment and plan: Patient states that when he was a baby his mom told him he took penicillin and it almost killed him. Patient is 73 years old so this happened over 7 years ago Attempted to do penicillin testing on the patient but allergy/immunology service is unavailable I walked back and with the charge nurse and discussed with the patient. I told him he has to options: 1.continue with the vancomycin and see if we have a better outcome 2.try ceftezole and watch him very closely and see if he has any reaction to it. I explained to him that we will watch him very closely status having any itching or wheezing or swelling that he should let us know right away. Patient picked option #2. I did discuss with the charge nurse and I made sure I asked her that they need to watch the patient very closely and somebody needs to go and every 10-15 minutes while the cefazolin is going an. (3) History of DVT (deep vein thrombosis) Status: Chronic (4) Aortic aneurysm Status: Chronic Qualifiers: Aortic location: unspecified Presence of rupture: without rupture Qualified Code(s): I71.9 - Aortic aneurysm of unspecified site, without rupture (5) NSVT (nonsustained ventricular tachycardia) Status: Acute (6) DVT (deep venous thrombosis) Status: Chronic Qualifiers: DVT location: lower extremity Affected thrombotic vein of extremity: unspecified vein of extremity Chronicity: unspecified Laterality: unsp ecified laterality Qualified Code(s): I82.409 - Acute embolism and thrombosis of unspecified deep veins of unspecified lower extremity Infectious Disease HPI - Data of Consult Patient: new to practice Consult date: 10/02/18 Requesting Physician: Juan Daniel Rangel MD Primary Care Provider: Aliyah Torres CNP - Consult Narrative Reason for consult: PJI History of present illness: Mr. De La Fuente is a 73 year old male Patient is a 73-year-old gentleman who presented to [place] on 09/27/2018 for infected left total shoulder replacement reverse by Dr. Rangel. We are on 10/02/2018 for infected left shoulder. Patient is a 71-year-old gentleman with past medical history significant for aortic aneurysm, arthritis, DVT, GERD, hyperlipidemia, history of PE and seizure disorder who has had recurrent falls presented to [place] on 09/27/2018 for elective surgery. We were asked to evaluate the patient for antibiotics recommendation. Patient had extensive surgical history multiple falls multiple fractures please see below. 10/07/2015: Right displaced distal radius fracture, left displaced femoral neck fracture after having a fall 01/19/16: closed displaced right femoral neck fracture underwent closed displaced right femoral neck fracture 01/21/16: Right distal radius fracture, extra-articular; s/p Right wrist open reduction internal fixation of distal radius 03/08/17: left distal radius intra-articular fracture requiring L wrist ORIF of distal radius 08/27/17: right TKA secondary to arthritis 03/11/18: Left open reduction internal fixation proximal humerus secondary to Displaced left proximal humerus fracture 04/05/18: Total Shoulder Replacment Reverse, removal of hardware left secondary to Left proximal humerus fracture with loss of fixation; intra op cultures +MSSA 05/17/18: Irrigation and debridement left upper arm abscess cultures +MSSA 09/27/18: s/p left revision total shoulder replacement reverse due to infected left total shoulder. Intra-Op cultures grew MSSA Since admission, patient has been afebrile, tachycardic without tachypnea. Presenting labs revealed WBC of 10,000 that dropped to 4.8. No differential noted. Chemistry including me and creatinine within normal limits. Left shoulder culture was positive for MSSA. We were asked to evaluate the patient and make further recommendations. I went in to see the patient and nursing staff. Patient was pleasant and polite and appropriate. His on the other hand was very abrasive and was yelling and she was not happy about the care. I explained to the that is my first time meeting her and the on was not involved in the care before and that did not satisfy her. I am she had multiple questions that I attempted to address and answered to by us of my knowledge. She told me that she has been reporting conversations that she has had with physicians in the recent past. CC: Juan Daniel Rangel MD Past Med Surg Social Fam HX - Past Medical History Medical history: aortic aneurysm, arthritis, DVT, GERD, hyperlipidemia, pulmonary embolus, seizures Additional medical history: RLS Psychiatric history: no psych history - Past Surgical History Surgical History: hip replacement, knee replacement Additional surgical history: left wrist. left shoulder replacement and revision. Left ORIF humerus - Social History Smoking Status: Never smoker Smokeless Tobacco Status: No Alcohol use: none Drug use: none - Family History Mother Hx Family Cardiac Disorders: Yes (htn) Hx Family Respiratory Disorders: No Father Adopted: No Family Member Ethnicity: Non- Living Status: Hx Family Cardiac Disorders: Yes Hx Family Respiratory Disorders: No Hx Family Cancer: No Hx Family GI Disorders: Yes (PUDx) Hx Family Endocrine Disorder: No Hx Family Neuromuscular Disorders: No Hx Family Neurologic Disorders: No Hx Family HEENT Disorders: No Hx Family Autoimmune Disorders: No Brother Hx Family Cardiac Disorders: Yes (CAD) Infectious Disease-CN:Meds Ferrous Sulfate [Iron] 325 mg PO DAILY 04/05/18 [History] Furosemide [Lasix] 20 mg PO DAILY 04/05/18 [History] Pantoprazole Sodium [Protonix] 40 mg PO DAILY 04/05/18 [History] Primidone [Mysoline] 250 mg PO BID 04/05/18 [History] Rivaroxaban [Xarelto] 15 mg PO BID 04/05/18 [History] Ropinirole HCl [Requip] 5 mg PO TID PRN 04/05/18 [History] diazePAM [Valium] 5 mg PO DAILY PRN 04/05/18 [History] Benzonatate 100 mg PO TID PRN 09/29/18 [History] Montelukast [Singulair] 10 mg PO DAILY 09/29/18 [History] Phenytoin ER [Dilantin ER] 200 mg PO TID 09/29/18 [History] Vancomycin/0.9 % Sod Chloride [Vanco 1.25 gm/250 ml-0.9% NaCl] 1.25 gm IV Q12H 7 Days #14 plast..bag 10/01/18 [Rx] Metoprolol Succinate [Toprol Xl] 50 mg PO BID 30 Days #60 tab.er.24h 10/02/18 [Rx] Allergy/AdvReac Type Severity Reaction Status Date / Time Penicillins [PCN] Allergy See Verified 09/29/18 12:18 Comments Sulfa (Sulfonamide Allergy See Verified 09/29/18 12:18 Antibiotics) Comments Review of systems: 10 point review of systems done, negative other for what is mentioned in history of present illness. Exam - Constitutional Vitals: Temp Pulse Resp BP Pulse Ox 98 F 87 16 136/84 96 10/02/18 09:57 10/02/18 09:57 10/02/18 09:57 10/02/18 09:57 10/02/18 09:57 General appearance: cooperative, no acute distress, no febrile - Head Head exam: Present: atraumatic, normocephalic - Eye Eye exam: Present: EOMI, PERRL, sclera anicteric - ENT ENT exam: Present: mucous membranes dry - Neck Neck exam: Present: full ROM. Absent: meningismus - Respiratory Respiratory exam: Present: CTAB. Absent: wheezes - Cardiovascular Cardiovascular exam: Present: RRR, +S1, +S2 - GI/Abdominal GI/Abdominal exam: Present: normal bowel sounds, soft. Absent: tenderness - Extremities Exam Additional comments: Lower extremities with adequate perfusion. Left shoulder surgical wound intact with no erythema no edema. - Neurological Exam Neurological exam: Present: alert, oriented X3 - Psychiatric Psychiatric exam: Present: normal affect, normal mood - Skin Skin exam: Present: normal color. Absent: rash Infectious Disease CN: Results - Labs CBC & Chem 7: 10/02/18 06:01 10/02/18 01:42 Cultures: Cultures 09/27/18 08:08 Anaerobic Culture - Final Left Shoulder No anaerobes were recovered. 09/27/18 08:08 Wound Culture - Final Left Shoulder Staphylococcus aureus 09/27/18 08:08 Gram Stain - Final Left Shoulder - VTE Reasons for not Prescribing Prophylaxis: Not indicated-Anticoagulated or INR therapeutic Documentation of Mechanical Device: Venous foot pump, device Consult Discharge Plan - Plan Referrals: Aliyah Torres, LOAD MANAGER [Primary Care Provider] - Prescriptions: Metoprolol Succinate [Toprol Xl] 50 mg PO BID 30 Days #60 tab.er.24h Vancomycin/0.9 % Sod Chloride [Vanco 1.25 gm/250 ml-0.9% NaCl] 1.25 gm IV Q12H 7 Days #14 plast..bag
[2018-10-02] MEDS: *HR* Rivaroxaban 10 MG TABLET PO SCH (17:57)
[2018-10-02] MEDS ORDERED: *HR* EPINEPHrine 1 MG/ML AMPUL IM PRN (20:12)
[2018-10-02] MEDS: Ringers Solution, Lactated 1,000 ML IVC SCH ×2 (21:30→21:31)
[2018-10-02] MEDS: 0.9 % Sodium Chloride 250 ML IVC SCH ×2 (21:31→21:32)
[2018-10-03] MEDS: ceFAZolin 2,000 MG in 0.9 % Sodium Chloride 100 ML IVPB SCH ×3 (01:07→16:26)
[2018-10-03] MEDS: Ringers Solution, Lactated 1,000 ML IVC SCH (03:20)
[2018-10-03] MEDS: 0.9 % Sodium Chloride 250 ML IVC SCH (03:21)
[2018-10-03] MEDS: rOPINIRole 1 MG TABLET PO SCH ×2 (06:58→16:25)
--- NOTE | 2018-10-03 07:51 | Orthopedics Progress Note ---
Date of Encounter: 10/03/18 Time of Encounter: 07:50 - Assessment and Plan (1) History of DVT (deep vein thrombosis) Current Visit: Yes Status: Chronic (2) Aortic aneurysm Current Visit: Yes Status: Chronic Qualifiers: Aortic location: unspecified Presence of rupture: without rupture Qualified Code(s): I71.9 - Aortic aneurysm of unspecified site, without rupture (3) Infection of prosthetic total shoulder joint Current Visit: Yes Status: Acute Qualifiers: Encounter type: subsequent encounter Qualified Code(s): T84.59XD - Infection and inflammatory reaction due to other internal joint prosthesis, subsequent encounter; Z96.619 - Presence of unspecified artificial shoulder joint (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 Current Visit: Yes Status: Acute Qualifiers: Laterality: left Qualified Code(s): Z96.612 - Presence of left artificial shoulder joint (5) HTN (hypertension) Current Visit: No Status: Chronic Qualifiers: Hypertension type: unspecified Qualified Code(s): I10 - Essential (primary) hypertension (6) Left bundle branch block Current Visit: No Status: Chronic (7) Seizure disorder Current Visit: No Status: Chronic (8) Acute blood loss anemia Current Visit: Yes Status: Resolved (9) NSVT (nonsustained ventricular tachycardia) Current Visit: Yes Status: Acute Subjective Principal diagnosis: NSVT Interval history: Patient was seen this morning doing well without complaints . Afebrile vital signs stable. Operative extremity: Neurovascularly intact Incision clean dry and intact no drainage Calves nontender Assessment and plan: Continue with postoperative care Plan for discharge today when cleared by infectious disease Objective Vital signs: Vital Signs Temp Pulse Resp BP Pulse Ox 10/03/18 06:40 98 F 84 16 156/83 98 10/03/18 05:34 97.6 F 80 16 163/90 99 10/03/18 04:25 98.3 F 82 16 134/70 100 10/03/18 03:33 98.5 F 82 14 134/89 100 10/03/18 02:32 98.2 F 69 16 146/84 100 10/03/18 01:03 97.6 F 66 14 138/84 97 10/02/18 23:08 97.6 F 84 20 168/93 97 10/02/18 21:50 94 10/02/18 19:20 97.6 F 91 16 123/70 94 10/02/18 14:05 98.4 F 93 16 129/86 95 10/02/18 09:57 98 F 87 16 136/84 96 Intake and Output 10/02/18 10/02/18 10/03/18 15:59 23:59 07:59 Intake Total 490 / 490 240 / 240 200 / 200 Output Total 450 / 450 500 / 500 1100 / 1100 Balance 40 / 40 -260 / -260 -900 / -900 Intake: IV Fluids 250 / 250 Vancocin 1,000 MG In 0.9 % 250 / 250 Sodium Chloride 250 ML @ 166.67 mls/hr IVPB Q12H [facility] Rx#: [id number] Oral 240 / 240 240 / 240 200 / 200 Output: Urine 450 / 450 500 / 500 1100 / 1100 Other: Meal Lunch Dinner Percent of Meal Consumed 55% 75% Weight 90.6 kg Patient Weight 10/03/18 23:59 Weight 90.6 kg - Labs CBC & BMP: 10/02/18 06:01 10/02/18 01:42 Labs: Abnormal lab results RBC 2.81 M/mcL (4.19-5.50) L 09/30/18 04:06 Hgb 10.7 g/dL (12.9-16.9) L 10/02/18 06:01 Hct 32.6 % (37.5-50.1) L 10/02/18 06:01 MCV 82.9 fL (83.0-100.0) L 09/30/18 04:06 MCH 26.3 pg (28.0-33.3) L 09/30/18 04:06 RDW 16.6 % (11.5-14.5) H 09/30/18 04:06 MPV 8.1 fL (9.4-12.4) L 09/30/18 04:06 Sodium 134 mEq/L (136-145) L 10/02/18 01:42 Creatinine 0.62 mg/dL (0.70-1.30) L 10/02/18 01:42 Glucose 123 mg/dL (70-105) H 10/02/18 01:42 POC Glucose 124 mg/dL (70-99) H 09/27/18 22:34 Calculated Osmolality 279 (280-300) L 10/02/18 01:42 Calcium 8.4 mg/dL (8.6-10.3) L 10/02/18 01:42 Alkaline Phosphatase 151 Units/L (34-104) H 10/02/18 01:42 Serum Total Protein 6.1 g/dL (6.4-8.9) L 10/02/18 01:42 Albumin 2.9 g/dL (3.5-5.7) L 10/02/18 01:42 Albumin/Globulin Ratio 0.9 (1.1-2.2) L 10/02/18 01:42 Vancomycin Trough 24 mcg/mL (5-10) H 10/01/18 Unknown Phenytoin 7.3 mcg/mL (10.0-20.0) L 09/27/18 22:49 - VTE Reasons for not Prescribing Prophylaxis: Not indicated-Anticoagulated or INR therapeutic Documentation of Mechanical Device: Venous foot pump, device Consult Discharge Plan - Plan Referrals: Aliyah Torres, MOLD WORKER [Primary Care Provider] - Prescriptions: Metoprolol Succinate [Toprol Xl] 50 mg PO BID 30 Days #60 tab.er.24h Vancomycin/0.9 % Sod Chloride [Vanco 1.25 gm/250 ml-0.9% NaCl] 1.25 gm IV Q12H 7 Days #14 plast..bag
--- NOTE | 2018-10-03 09:15 | Electrocardiograph Report ---
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
[2018-10-03] MEDS: Furosemide 20 MG TABLET PO SCH (09:52)
--- NOTE | 2018-10-03 09:56 | Infectious Disease Progress No ---
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 Intra-Op cultures grew MSSA Trial of cefazolin during the night was without complications. Patient denies any dyspnea, rashes, swelling. Second dose of cefazolin without complications. PICC line in place. Patient is afebrile, HR 82, RR 16, BP 118/72 stable. Cr clearance 138. Plan: -Continue cefazolin (day 1) -Start rifampin 450 mg PO BID -Duration of regimen at least 6 weeks -Plan for weekly labs of CBC, BUN/Cr, LFT -Schedule f/u appointment with Dr. Castillo 2 weeks post-discharge Qualifiers: Encounter type: subsequent encounter Qualified Code(s): T84.59XD - Infection and inflammatory reaction due to other internal joint prosthesis, subsequent encounter; Z96.619 - Presence of unspecified artificial shoulder joint (2) Drug allergy, antibiotic Status: Acute Patient admits Hx of near fatal event >70 years ago when reported by mother s/p PCN when infant Penicillin allergy testing not completed as allergy/immunology unavailable 10/03/17 Trial of Cefazolin at 1:12am; no complications as HR, RR, BP remained stable, no wheezing, rashes Second dose of cefazolin without complications. Plan: -As above, advised patient monitor for any further reactions to cefazolin though unlikely and to call or present to ED if any changes (3) Aortic aneurysm Status: Chronic 01/30/18 Chest CTA- 4cm stable ectasia of ascending thoracic aorta Plan: -Management per primary team Qualifiers: Aortic location: unspecified Presence of rupture: without rupture Qualified Code(s): I71.9 - Aortic aneurysm of unspecified site, without rupture (4) NSVT (nonsustained ventricular tachycardia) Status: Acute 09/13/18 Holter monitor showed multiple runs of NSVT up to 23 beats. Recent stress test was negative for ischemia. TTE 07/2018EF 65%. There was mild mitral regurgitation and mild tricuspid regurgitation. 09/29/18 Small run NSVT; telemetry showed SR with rate dependent LBBB but no NSVT No acute episodes. Patient plans for outpatient [facility] Cardiology has signed off Plan: -Management per primary team (5) DVT (deep venous thrombosis) Status: Chronic Patient reported Hx of DVT while on xarelto Plan: -Management per primary team Qualifiers: DVT location: lower extremity Affected thrombotic vein of extremity: unspecified vein of extremity Chronicity: unspecified Laterality: unspecified laterality Qualified Code(s): I82.409 - Acute embolism and thrombosis of unspecified deep veins of unspecified lower extremity - Subjective Interval history: Patient seen and examined this morning, in no acute distress. During the prior night, a trial of cefazolin was completed without complications. Patient admits feeling well overall with no increased pain or warmth of the L shoulder; he denies fever, chills, chest pain, palpitations, cough, dyspnea, nausea, abdominal pain, bowel changes, or urinary difficulties. Infect Dis PN-Objective Data - Labs CBC & Chem 7: 10/02/18 06:01 10/02/18 01:42 Cultures: Cultures 09/27/18 08:08 Anaerobic Culture - Final Left Shoulder No anaerobes were recovered. 09/27/18 08:08 Wound Culture - Final Left Shoulder Staphylococcus aureus 09/27/18 08:08 Gram Stain - Final Left Shoulder Exam - Constitutional Vitals: Temp Pulse Resp BP Pulse Ox 98.2 F 82 16 118/72 98 10/03/18 07:50 10/03/18 07:50 10/03/18 07:50 10/03/18 07:50 10/03/18 07:50 Exam: GENERAL: Appears as stated age, in no acute distress HEAD: Normocephalic, atraumatic ENT:PERRL, EOMI, conjunctiva pink, oral mucosa dry, no lesions RESPIRATORY: CTA per, no wheezes, rales, rhonchi CHEST: nontender CARDIAC: RRR, Normal S1 and S2, without murmurs, gallops, or rubs EXTREMITIES: No peripheral edema, radial and dorsalis pedis pulses symmetric, intact per ABDOMEN: obese, soft, BSx4, nontender, non-distended, no masses MUSCULOSKELETAL: L arm resting in sling, L shoulder no tenderness or warmth with dressing in place clean, dry, intact, Normal ROM of other major joints, Extremities without clubbing, cyanosis or edema. NEUROLOGIC EXAM:A&Ox3, No focal deficits,Strengthand Sensation symmetric, intact per PSYCHIATRIC: Normal mood SKIN: warm, intact, no rashes - VTE Reasons for not Prescribing Prophylaxis: Not indicated-Anticoagulated or INR therapeutic Documentation of Mechanical Device: Venous foot pump, device Consult Discharge Plan - Plan Additional Instructions: Discharge Instructions: Total Shoulder Please call [facility] ([phone]), your Primary Care Physician, or report to the Emergency Room if you have any of the following symptoms: Nausea, vomiting, fever greater that 101.5, swelling, chest pain, shortness of breath, increased pain/redness/drainage/odor for your incision site, numbness/tingling, or any other concerning symptoms. ACTIVITY: Always keep your arm in the sling. Do not raise your arm away from your body. Do not use your arm to help with getting in or out of bed. No weight bearing permitted. Only perform those exercises given to you by your therapist. Incentive Spirometer 10 times an hour. MEDICATIONS: Upon discharge resume your home medications. Take all the medications as prescribed. Take a stool softener if taking narcotic pain medications. Stool softeners are only effective if you drink enough fluids. Drink 6-8 glass of water or fluids a day, unless this is not allowed for another health problem. Despite using stool softeners, if you haven't had a bowel movement in 3 days, please switch to a gentle laxative. Gentle laxatives are sold over the counter. You should have a bowel movement within 24 hours, if not call the office. You will be discharged from the hospital with a prescription for pain medica tion. You are encouraged to decrease the use of narcotic pain medication as tolerated. Should you require a refill, please call the office. [facility] prescribes narcotic pain medication for only 4-6 weeks after surgery. If you require pain medication beyond this time period, you may be referred to your Primary Care Physician or to the Pain Clinic for further evaluation. Plan ahead for refills on pain medication as many narcotics either need to be picked up at the office or mailed. It is best to call 48-72 hours in advance of needing a prescription refill so you don't run out of medication. To help control the post-operative pain, you may take NSAIDs (Aleve,Advil, Motrin, Ibuprofen, Naprosyn) or Tylenol as prescribed on the bottle in addition to the pain medication. WOUND CARE: Leave the dressing on for 7-10 days. You may change the dressing if it becomes saturated greater than 50%. Do not get the dressing wet at anytime. Wash your hands with antibacterial soap, rinse and dry prior to any wound care. If you have adri the visiting nurse or rehab facility can remove the stapes 10-14 days after surgery and place steri-strips across the wound. Leave the steri-strips in place until they fall off on their own. You may let water from the shower run on top of the steri-strips. If you do not have a visiting nurse or rehab facility, you will need to return to the office at 10-14 days for the adri to be removed. If you have itching or redness around the dressing call the office. FOLLOW-UP: Please follow up with your surgeon in the orthopedic clinic, as scheduled Infectious Disease Appointment (at [facility]): 10/17/18 @ 2:05pm with Hope Hinton CNP Referrals: Aliyah Torres CNP [Primary Care Provider] - Prescriptions: Cefazolin Sodium in 0.9 % NaCl [Cefazolin 2 G/100 ml-0.9% NaCl] 2 gm IV Q8H 7 Days #21 plast..bag RX: Metoprolol Succinate [Toprol Xl] 50 mg PO BID 30 Days #60 tab.er.24h RX: rifAMPin [Rifadin] 450 mg PO BID 7 Days #84 capsule - Attending Attestation I examined this patient and my medical decision-making was reviewed with the Resident Physician. I agree with the documented findings, disposition and treatment plan as described except to the extent set forth below. Patient seen and examined. Clinically doing well. No headaches no chest pain no shortness of breath no diarrhea no nausea no vomiting no shoulder pain no urinary symptoms. Vital signs noted Labs reviewed His clinical exam HEENT head is atraumatic pupils are equal react to light Lungs clear to auscultation bilaterally Cardiovascular regular rate and rhythm S1-S2 no murmur Abdomen soft nontender Extremities left shoulder wound looks great. No erythema no edema. Surgical wound healing. PICC line right upper extremity intact with no signs of infection Assessment and plan: Prosthetic joint infection left shoulder s/p left revision total shoulder replacement reverse due to infected left total shoulder. Intra-Op cultures grew MSSA Severe penicillin allergy when he was a baby - has tolerated cefazolin; i explained to the patient that a reaction can be delayed and he needs to be vigilant of hives, wheezing, angioedema etc. and he should call right away if that happens and stopped taking his antibiotics. Patient understands. Aortic aneurysm Nonsustained ventricular tachycardia Plan: -Continue cefazolin (day 1) -Start rifampin 450 mg PO BID -Duration of regimen at least 6 weeks -Plan for weekly labs of CBC, BUN/Cr, LFT -Schedule f/u appointment with ID service in 2 weeks
--- NOTE | 2018-10-03 09:56 | Electrocardiograph Report ---
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
[2018-10-03 12:47] VITALS: BP 134/75
--- NOTE | 2018-10-03 16:34 | Physician Discharge Referral ---
Home Health/Hosp Referral Info Transfer to: Home Health Attending Provider: Dr. Juan Daniel Rangel - Diagnosis (1) Status post reverse total shoulder replacement Priority: Primary Status: Acute (2) Infection of prosthetic total shoulder joint Priority: Primary Status: Acute (3) Acute blood loss anemia Priority: Secondary Status: Resolved (4) NSVT (nonsustained ventricular tachycardia) Priority: Secondary Status: Acute (5) History of DVT (deep vein thrombosis) Priority: Secondary Status: Chronic - Respiratory Orders Smoking Cessation: Smoking cessation has been advised. For more information, call the [place] Tobacco Quit Line at 5-845-HOHG-NOW. - Dressing/Wound Care Site: left shoulder Type of Dressing/Treatments w/Frequency: Opsite placed. Keep dressing intact until first follow up appointment. If greater than 50% saturated, notify office, remove dressing and place appropriate dressing back in place. Leave Zipline/Jose intact. Opsite dressing is water resistant, not water-proof. OK to shower, but do not get dressing wet. - Diet/Nutrition Diet/Nutrition Orders: Regular - Activity Activity Orders: Up ad kat, Ambulate, Chair - Services Needed Following services are medically necessary services: Nursing (*weekly labs of CBC, BUN/Cr, LFT), Home Health Aide, Physical Therapy, Occupational Therapy, Med Social Work, Home Infusion Home Care Orders: PT/OT. NWB to affected upper extremity. Follow Shoulder Precautions x 6 weeks. Stay in brace during activity and at night. Remove brace during exercises. ICE and elevate extremity frequently throughout the day. - Transfer Medications Prescriptions: Cefazolin Sodium in 0.9 % NaCl [Cefazolin 2 G/100 ml-0.9% NaCl] 2 gm IV Q8H 7 Days #21 plast..bag Metoprolol Succinate [Toprol Xl] 50 mg PO BID 30 Days #60 tab.er.24h rifAMPin [Rifadin] 450 mg PO BID 7 Days #84 capsule Home Medications: Ferrous Sulfate [Iron] 325 mg PO DAILY 04/05/18 [History] Furosemide [Lasix] 20 mg PO DAILY 04/05/18 [History] Pantoprazole Sodium [Protonix] 40 mg PO DAILY 04/05/18 [History] Primidone [Mysoline] 250 mg PO BID 04/05/18 [History] Rivaroxaban [Xarelto] 15 mg PO BID 04/05/18 [History] Ropinirole HCl [Requip] 5 mg PO TID PRN 04/05/18 [History] diazePAM [Valium] 5 mg PO DAILY PRN 04/05/18 [History] Benzonatate 100 mg PO TID PRN 09/29/18 [History] Montelukast [Singulair] 10 mg PO DAILY 09/29/18 [History] Phenytoin ER [Dilantin ER] 200 mg PO TID 09/29/18 [History] Metoprolol Succinate [Toprol Xl] 50 mg PO BID 30 Days #60 tab.er.24h 10/02/18 [Rx] Cefazolin Sodium in 0.9 % NaCl [Cefazolin 2 G/100 ml-0.9% NaCl] 2 gm IV Q8H 7 Days #21 plast..bag 10/03/18 [Rx] rifAMPin [Rifadin] 450 mg PO BID 7 Days #84 capsule 10/03/18 [Rx] Allergies/Adverse Reactions: Allergy/AdvReac Type Severity Reaction Status Date / Time Penicillins [PCN] Allergy See Verified 09/29/18 12:18 Comments Sulfa (Sulfonamide Allergy See Verified 09/29/18 12:18 Antibiotics) Comments Certification: Further, I certify that my clinical findings support that this patient is homebound (i.e. absences from home require considerable and taxing effort and are for medical reasons or quaker services or infrequently or short duration when for other reasons) because: Homebound Reason: Post-surgery restriction and or conditions limit ability to leave home, Leaving home requires considerable and taxing effort due to condition Attestation: My signature below is to certify that this patient is under my care and that I, or nurse practitioner, or a physician mental health assistant working with me, has a [id number] encounter with this patient.
[2018-10-03] MEDS: *HR* Rivaroxaban 10 MG TABLET PO SCH (16:35)
[2018-10-03] MEDS ORDERED: Aminoglycoside Consult 1 EACH MC ONE (17:15)
== END 2018-10-03 17:16 | disposition home health service (06) | DRG 483 ==
LOC: SAMDAY 06:08 → 3NENU 10:54
PROVIDERS: ADMIT Orthopaedic Surgery; ATTEND Orthopaedic Surgery

== ENCOUNTER 2019-10-16 14:08 | Observation (INO) ==
[2019-10-16 16:22] LABS: Basophils % 0.4 %; Eosinophils # 0.1 K/mcL (0.0-0.6); Eosinophils % 1.6 %; Hematocrit 40.8 % (37.5-50.1); Hemoglobin 13.4 g/dL (12.9-16.9); Immature Granulocytes % 0.2 % (0-4); Lymphocytes # 0.8 K/mcL (0.6-4.6); Lymphocytes % 15.2 %; Mean Corpuscular HGB Conc 32.8 g/dL (31.6-35.5); Mean Corpuscular Hemoglobin 30.5 pg (28.0-33.3); Mean Corpuscular Volume 92.7 fL (83.0-100.0); Mean Platelet Volume 8.1 fL (9.4-12.4); Monocytes # 0.3 K/mcL (0.0-1.3); Monocytes % 6.7 %; Neutrophils # 3.9 K/mcL (1.6-8.9); Platelet Count 150 K/mcL (140-400); Segmented Neutrophils % 75.9 %; White Blood Count 5.1 K/mcL (4.3-11.1)
[2019-10-16 16:39] LABS: Bilirubin,Urine Small (Negative); Blood,Urine Negative (Negative); Clarity,Urine Clear (Clear); Color,Urine Dark Yellow (Yellow); Glucose,Urine (UA) Normal (Normal); Ketones,Urine Negative (Negative); Leukocyte Esterase,Urine Negative (Negative); Nitrite,Urine Negative (Negative); PH,Urine 5.5 pH Units (5.0-8.0); Protein,Urine Trace mg/dL (Neg-Trace); Specific Gravity,Urine > 1.030 (1.010-1.025); Urobilinogen,Urine Normal (Normal)
[2019-10-16 16:45] LABS: BUN/Creatinine Ratio 23 (6-26); Blood Urea Nitrogen 21 mg/dL (8-23); Calcium 8.9 mg/dL (8.6-10.3); Carbon Dioxide 25 mEq/L (23-29); Chloride 104 mEq/L (98-107); Glucose 109 mg/dL (70-105); Osmolality,Calculated 284 (280-300); Sodium 135 mEq/L (136-145); eGFR For African Americans > 60 (> 60); eGFR For Non-African Americans > 60 (> 60)
[2019-10-16] MEDS ORDERED: Acetaminophen 325 MG TABLET PO PRN (16:47)
[2019-10-16] MEDS ORDERED: Ondansetron 4 MG/2 ML VIAL IVP PRN (16:47)
[2019-10-16] MEDS ORDERED: Naloxone 0.4 MG/ML INJ IVP PRN (16:47)
[2019-10-16 17:22] LABS: INR 1.3; Prothrombin Time 14.3 Seconds (9.4-12.1)
[2019-10-16] MEDS: Furosemide 20 MG TABLET PO SCH (18:29)
[2019-10-16] MEDS: Apixaban 5 MG TABLET PO SCH (20:17)
[2019-10-16] MEDS: *HR* HYDROcodone/Acet 5/325 mg TABLET PO PRN (23:48)
[2019-10-17] MEDS ORDERED: *HR* LORazepam 0.5 MG TABLET PO ONE (00:09)
[2019-10-17] MEDS: *HR* HYDROcodone/Acet 5/325 mg TABLET PO PRN (08:20)
[2019-10-17] MEDS: Apixaban 5 MG TABLET PO SCH ×2 (08:21→19:33)
[2019-10-17] MEDS: Cholecalciferol (D-3) 1,000 UNIT (25MCG) TABLET PO SCH (08:22)
[2019-10-17] MEDS: Topiramate 25 MG TABLET PO SCH (08:22)
[2019-10-17] MEDS: Furosemide 20 MG TABLET PO SCH (17:40)
[2019-10-18] MEDS: Apixaban 5 MG TABLET PO SCH ×2 (09:10→19:56)
[2019-10-18] MEDS: Topiramate 25 MG TABLET PO SCH (09:10)
[2019-10-18] MEDS: Cholecalciferol (D-3) 1,000 UNIT (25MCG) TABLET PO SCH (09:12)
[2019-10-18] MEDS: Furosemide 20 MG TABLET PO SCH (17:21)
[2019-10-19] MEDS: Topiramate 25 MG TABLET PO SCH (08:08)
[2019-10-19] MEDS: Apixaban 5 MG TABLET PO SCH ×2 (08:08→20:09)
[2019-10-19] MEDS: Cholecalciferol (D-3) 1,000 UNIT (25MCG) TABLET PO SCH (08:08)
[2019-10-19] MEDS: Furosemide 20 MG TABLET PO SCH (17:45)
[2019-10-19] MEDS ORDERED: *HR* LORazepam 0.5 MG TABLET PO ONE (22:25)
[2019-10-20] MEDS: Apixaban 5 MG TABLET PO SCH (09:07)
[2019-10-20] MEDS: Topiramate 25 MG TABLET PO SCH (09:08)
[2019-10-20] MEDS: Cholecalciferol (D-3) 1,000 UNIT (25MCG) TABLET PO SCH (09:09)
[2019-10-20] MEDS ORDERED: *HR* LORazepam 0.5 MG TABLET PO ONE (11:19)
[2019-10-20 14:45] VITALS: BP 156/90
== END 2019-10-20 17:01 ==
LOC: 3NENU 14:08 → EMEROOARM 14:08 → SUATTDRO 16:49 → 3NENU 18:00
PROVIDERS: ADMIT Internal Medicine; ATTEND Internal Medicine

== ENCOUNTER 2020-08-22 15:34 | Observation (INO) ==
[2020-08-22] MEDS ORDERED: *HR* FentaNYL (PF) 100 MCG/2 ML VIAL IVP ONE (15:48)
[2020-08-22 17:02] LABS: Basophils % 0.3 %; Eosinophils # 0.1 K/mcL (0.0-0.6); Hematocrit 39.2 % (37.5-50.1); Hemoglobin 12.8 g/dL (12.9-16.9); Immature Granulocytes % 0.3 % (0-4); Lymphocytes # 1.1 K/mcL (0.6-4.6); Lymphocytes % 13.4 %; Mean Corpuscular HGB Conc 32.7 g/dL (31.6-35.5); Mean Corpuscular Hemoglobin 30.3 pg (28.0-33.3); Mean Corpuscular Volume 92.7 fL (83.0-100.0); Mean Platelet Volume 8.1 fL (9.4-12.4); Monocytes # 0.4 K/mcL (0.0-1.3); Monocytes % 4.9 %; Neutrophils # 6.3 K/mcL (1.6-8.9); Platelet Count 213 K/mcL (140-400); Red Blood Count 4.23 M/mcL (4.19-5.50); Red Cell Distribution Width 13.2 % (11.5-14.5); Segmented Neutrophils % 80.1 %; White Blood Count 7.8 K/mcL (4.3-11.1)
[2020-08-22 17:03] LABS: INR 1.1; Prothrombin Time 12.6 Seconds (9.4-12.1)
[2020-08-22 17:05] LABS: Activated Partial Thrombo Time 30.9 Seconds (26.0-36.0)
[2020-08-22 17:17] LABS: Alanine Aminotransferase 15 Units/L (7-52); Albumin 3.6 g/dL (3.5-5.7); Albumin/Globulin Ratio 1.2 (1.1-2.2); Alkaline Phosphatase 182 Units/L (34-104); Aspartate Amino Transferase 16 Units/L (13-39); BUN/Creatinine Ratio 14 (6-26); Bilirubin,Total 0.4 mg/dL (0.3-1.0); Blood Urea Nitrogen 11 mg/dL (8-23); Calcium 8.4 mg/dL (8.6-10.3); Carbon Dioxide 21 mEq/L (23-29); Chloride 104 mEq/L (98-107); Glucose 103 mg/dL (70-105); Osmolality,Calculated 282 (280-300); Sodium 136 mEq/L (136-145); Total Protein 6.6 g/dL (6.4-8.9); eGFR For African Americans > 60 (> 60); eGFR For Non-African Americans > 60 (> 60)
[2020-08-22] MEDS ORDERED: Naloxone 0.4 MG/ML INJ IVP PRN (17:46)
[2020-08-22] MEDS ORDERED: Acetaminophen 325 MG TABLET PO PRN (17:46)
[2020-08-22] MEDS ORDERED: Ondansetron 4 MG/2 ML VIAL IVP PRN (17:46)
[2020-08-23 01:32] LABS: Hematocrit 38.2 % (37.5-50.1); Hemoglobin 12.4 g/dL (12.9-16.9); Mean Corpuscular HGB Conc 32.5 g/dL (31.6-35.5); Mean Corpuscular Hemoglobin 30.6 pg (28.0-33.3); Mean Corpuscular Volume 94.3 fL (83.0-100.0); Mean Platelet Volume 8.5 fL (9.4-12.4); Platelet Count 177 K/mcL (140-400); Red Blood Count 4.05 M/mcL (4.19-5.50); Red Cell Distribution Width 13.2 % (11.5-14.5); White Blood Count 9.1 K/mcL (4.3-11.1)
[2020-08-23 01:50] LABS: BUN/Creatinine Ratio 16 (6-26); Blood Urea Nitrogen 13 mg/dL (8-23); Calcium 7.9 mg/dL (8.6-10.3); Carbon Dioxide 22 mEq/L (23-29); Chloride 107 mEq/L (98-107); Glucose 173 mg/dL (70-105); Osmolality,Calculated 288 (280-300); Potassium 3.8 mEq/L (3.5-5.1); Sodium 137 mEq/L (136-145); eGFR For African Americans > 60 (> 60); eGFR For Non-African Americans > 60 (> 60)
[2020-08-23] MEDS: *HR* Heparin 5,000 UNIT/ML VIAL SQ SCH ×3 (02:56→16:51)
[2020-08-23] MEDS: Cholecalciferol (D-3) 1,000 UNIT (25MCG) TABLET PO SCH (08:21)
[2020-08-23] MEDS ORDERED: CALCIUM CARBONATE PO SCH (09:00)
[2020-08-23] MEDS ORDERED: VITAMIN D3 PO SCH (09:00)
[2020-08-23] MEDS ORDERED: [UNRECOGNIZED DRUG - OTHER] PO SCH (09:00)
[2020-08-23] MEDS: Apixaban 5 MG TABLET PO SCH (19:50)
[2020-08-24 03:59] LABS: BUN/Creatinine Ratio 29 (6-26); Blood Urea Nitrogen 22 mg/dL (8-23); Calcium 7.7 mg/dL (8.6-10.3); Carbon Dioxide 22 mEq/L (23-29); Chloride 106 mEq/L (98-107); Glucose 124 mg/dL (70-105); Osmolality,Calculated 285 (280-300); Sodium 135 mEq/L (136-145); eGFR For African Americans > 60 (> 60); eGFR For Non-African Americans > 60 (> 60)
[2020-08-24 05:17] LABS: Hematocrit 33.4 % (37.5-50.1); Hemoglobin 10.8 g/dL (12.9-16.9); Mean Corpuscular HGB Conc 32.3 g/dL (31.6-35.5); Mean Corpuscular Hemoglobin 30.1 pg (28.0-33.3); Mean Platelet Volume 8.2 fL (9.4-12.4); Platelet Count 143 K/mcL (140-400); Red Blood Count 3.59 M/mcL (4.19-5.50); Red Cell Distribution Width 13.5 % (11.5-14.5); White Blood Count 5.5 K/mcL (4.3-11.1)
[2020-08-24] MEDS: Cholecalciferol (D-3) 1,000 UNIT (25MCG) TABLET PO SCH (08:48)
[2020-08-24] MEDS: Apixaban 5 MG TABLET PO SCH (08:48)
[2020-08-24 15:43] VITALS: BP 128/75
[2020-08-24 19:09] LABS: Influenza A PCR Negative (Negative); Influenza B PCR Negative (Negative); Resp. Syncytial Virus PCR Negative (Negative)
[2020-08-24 19:10] LABS: SARS-CoV-2 by PCR (In House) Negative (Negative)
== END 2020-08-24 17:49 ==
LOC: EMEROOARM 15:34 → 3NENU 15:34 → SUATTDRO 17:09 → 3NENU 17:51
PROVIDERS: ADMIT Internal Medicine; ATTEND Internal Medicine

== ENCOUNTER 2021-06-21 22:12 | Inpatient (IN) ==
[2021-06-21] MEDS ORDERED: *HR* Midazolam HCl 5 MG/5 ML VIAL IVP ONE ×2 (22:14)
[2021-06-21] MEDS ORDERED: Tdap (Boostrix) Vaccine 0.5 ML SYRINGE IM ONE (22:17)
[2021-06-21 22:29] LABS: Basophils % 0.3 %; Eosinophils # 0.1 K/mcL (0.0-0.6); Eosinophils % 1.1 %; Hematocrit 39.7 % (37.5-50.1); Hemoglobin 13.1 g/dL (12.9-16.9); Immature Granulocytes % 0.4 % (0-4); Lymphocytes # 1.3 K/mcL (0.6-4.6); Lymphocytes % 18.7 %; Mean Corpuscular Hemoglobin 29.4 pg (28.0-33.3); Mean Platelet Volume 8.2 fL (9.4-12.4); Monocytes # 0.3 K/mcL (0.0-1.3); Monocytes % 4.4 %; Neutrophils # 5.3 K/mcL (1.6-8.9); Platelet Count 204 K/mcL (140-400); Red Blood Count 4.46 M/mcL (4.19-5.50); Red Cell Distribution Width 14.1 % (11.5-14.5); Segmented Neutrophils % 75.1 %; White Blood Count 7.1 K/mcL (4.3-11.1)
[2021-06-21 22:31] LABS: ABG Base Excess -5 mEq/L (-2 to 3); ABG HCO3 21 mEq/L (21-27); ABG Oxygen Saturation 100 % (95-98); ABG PCO2 39 mmHg (35-45); ABG PH 7.34 pH Units (7.32-7.45); ABG PO2 319 mmHg (85-104); ABG TCO2 22 mEq/L (20-26); Blood Gas Modality ASSIST CONTROL; Blood Gas VT 480 cc
[2021-06-21 22:59] LABS: BUN/Creatinine Ratio 15 (6-26); Blood Urea Nitrogen 16 mg/dL (8-23); Carbon Dioxide 19 mEq/L (23-29); Chloride 98 mEq/L (98-107); Ethanol < 10 mg/dL (Less than 10); Glucose 195 mg/dL (70-105); Osmolality,Calculated 285 (280-300); Potassium 3.3 mEq/L (3.5-5.1); Sodium 134 mEq/L (136-145); Troponin I 0.05 ng/mL (< 0.04); eGFR For African Americans > 60 (> 60); eGFR For Non-African Americans > 60 (> 60)
[2021-06-21] MEDS ORDERED: *HR* FentaNYL (PF) 100 MCG/2 ML VIAL ONE (22:59)
[2021-06-21] MEDS ORDERED: *HR* FentaNYL (PF) 100 MCG/2 ML VIAL IVP ONE (23:00)
[2021-06-21 23:01] LABS: Bacteria,Urine Few per hpf (None-Few); Bilirubin,Urine Negative (Negative); Blood,Urine Moderate (Negative); Clarity,Urine Clear (Clear); Color,Urine Light-Yellow (Yellow); Glucose,Urine (UA) Normal (Normal); Hyaline Casts,Urine Few per lpf (None Seen); Ketones,Urine Negative (Negative); Leukocyte Esterase,Urine Trace (Negative); Mucus,Urine Few per lpf (None-Few); Nitrite,Urine Positive (Negative); Protein,Urine 50 mg/dL (Neg-Trace); Specific Gravity,Urine 1.011 (1.010-1.025); Urobilinogen,Urine Normal (Normal)
[2021-06-21 23:04] LABS: Amphetamine Screen,Urine Negative ng/mL (Cutoff=1000); Barbiturate Screen,Urine Negative ng/mL (Cutoff=200); Benzodiazepines Screen,Urine Positive ng/mL (Cutoff=200); Cannabinoid Screen,Urine Negative ng/mL (Cutoff = 50); Cocaine Screen,Urine Negative ng/mL (Cutoff= 300); Opiate Screen,Urine Negative ng/mL (Cutoff=300); Phencyclidine Screen,Urine Negative ng/mL (Cutoff=25)
[2021-06-21] MEDS ORDERED: 0.9 % Sodium Chloride 1,000 ML ONE (23:10)
[2021-06-21] MEDS ORDERED: 0.9 % Sodium Chloride 500 ML IVC ONE (23:10)
[2021-06-21] MEDS ORDERED: levoFLOXacin 750 MG/150 ML 750 MG/150 ML BAG IVPB ONE (23:30)
[2021-06-22] MEDS ORDERED: Isovue-370 500 ML BOTTLE IVP ONE (00:04)
[2021-06-22] MEDS ORDERED: *HR* FentaNYL (PF) 100 MCG/2 ML VIAL IVP ONE (00:09)
[2021-06-22] MEDS ORDERED: *HR* FentaNYL (PF) 100 MCG/2 ML VIAL ONE (00:09)
[2021-06-22] MEDS ORDERED: FentaNYL (PF) 1,000 MCG/100 ML IV.SOLN IVC SCH (00:15)
[2021-06-22] MEDS ORDERED: Naloxone 0.4 MG/ML INJ IVP PRN ×2 (04:54→22:40)
[2021-06-22] MEDS ORDERED: Artificial Tears SOLN 15 ML BOTTLE BOTH EYES PRN (04:58)
[2021-06-22 05:38] LABS: ABG Base Excess 1 mEq/L (-2 to 3); ABG HCO3 23 mEq/L (21-27); ABG Oxygen Saturation 100 % (95-98); ABG PCO2 30 mmHg (35-45); ABG PO2 148 mmHg (85-104); ABG TCO2 24 mEq/L (20-26); Blood Gas Modality ASSIST CONTROL; Blood Gas VT 450 cc
[2021-06-22 06:33] LABS: Basophils % 0.2 %; Eosinophils % 0.3 %; Hematocrit 40.6 % (37.5-50.1); Hemoglobin 13.4 g/dL (12.9-16.9); Immature Granulocytes % 0.2 % (0-4); Lymphocytes % 10.7 %; Mean Corpuscular Hemoglobin 29.5 pg (28.0-33.3); Mean Corpuscular Volume 89.2 fL (83.0-100.0); Mean Platelet Volume 8.8 fL (9.4-12.4); Monocytes # 0.4 K/mcL (0.0-1.3); Monocytes % 4.1 %; Neutrophils # 8.2 K/mcL (1.6-8.9); Platelet Count 143 K/mcL (140-400); Red Blood Count 4.55 M/mcL (4.19-5.50); Red Cell Distribution Width 14.3 % (11.5-14.5); Segmented Neutrophils % 84.5 %; White Blood Count 9.8 K/mcL (4.3-11.1)
[2021-06-22 06:41] LABS: INR 1.2; Prothrombin Time 13.2 Seconds (9.4-12.1)
[2021-06-22 06:44] LABS: Activated Partial Thrombo Time 23.3 Seconds (26.0-36.0)
[2021-06-22 06:50] LABS: Alanine Aminotransferase 12 Units/L (7-52); Albumin 3.6 g/dL (3.5-5.7); Albumin/Globulin Ratio 1.2 (1.1-2.2); Alkaline Phosphatase 167 Units/L (34-104); Aspartate Amino Transferase 15 Units/L (13-39); BUN/Creatinine Ratio 16 (6-26); Bilirubin,Total 0.6 mg/dL (0.3-1.0); Blood Urea Nitrogen 16 mg/dL (8-23); Calcium 8.4 mg/dL (8.6-10.3); Carbon Dioxide 24 mEq/L (23-29); Chloride 100 mEq/L (98-107); Globulin 2.9 g/dL (2.4-3.5); Glucose 102 mg/dL (70-105); Magnesium 1.9 mg/dL (1.6-2.6); Osmolality,Calculated 279 (280-300); Phosphorous 3.6 mg/dL (2.7-4.5); Potassium 3.7 mEq/L (3.5-5.1); Sodium 134 mEq/L (136-145); Total Protein 6.5 g/dL (6.4-8.9); Troponin I 0.53 ng/mL (< 0.04); eGFR For African Americans > 60 (> 60); eGFR For Non-African Americans > 60 (> 60)
[2021-06-22] MEDS ORDERED: Perflutren Lipid Microsphere 1.3 ML in 0.9 % Sodium Chloride 8.7 ML IVP PRN (07:16)
[2021-06-22] MEDS ORDERED: *HR* Heparin 5,000 UNIT/ML VIAL IVP PRN ×4 (07:17→22:40)
[2021-06-22] MEDS ORDERED: *HR* Heparin 5,000 UNIT/ML VIAL IVP ONE (07:17)
[2021-06-22] MEDS ORDERED: Heparin 25,000UNIT/250ML 1/2NS 25,000 UNIT/250 ML IV.SOLN IVC SCH (07:30)
[2021-06-22] MEDS ORDERED: Artificial Tears SOLN 15 ML BOTTLE BOTH EYES SCH (08:00)
[2021-06-22] MEDS ORDERED: Chlorhexidine Rinse 15 ML MOUTHWASH MM SCH (09:00)
[2021-06-22] MEDS ORDERED: Pantoprazole 40 MG VIAL IVP SCH (09:00)
[2021-06-22] MEDS ORDERED: levoFLOXacin 750 MG/150 ML 750 MG/150 ML BAG IVPB SCH (09:00)
[2021-06-22 10:49] LABS: Hematocrit 40.8 % (37.5-50.1); Mean Corpuscular HGB Conc 31.9 g/dL (31.6-35.5); Mean Corpuscular Hemoglobin 28.4 pg (28.0-33.3); Mean Corpuscular Volume 89.3 fL (83.0-100.0); Mean Platelet Volume 8.6 fL (9.4-12.4); Platelet Count 121 K/mcL (140-400); Red Blood Count 4.57 M/mcL (4.19-5.50); Red Cell Distribution Width 14.4 % (11.5-14.5); White Blood Count 13.1 K/mcL (4.3-11.1)
[2021-06-22 11:10] LABS: Heparin anti-factor XA UFH 0.8 IU/mL (0.30-0.70)
[2021-06-22 11:11] LABS: INR 1.2; Prothrombin Time 13.9 Seconds (9.4-12.1)
[2021-06-22] MEDS ORDERED: Phenytoin Oral Susp 100 MG/4 ML UDC PO ONE (15:00)
[2021-06-22] MEDS ORDERED: Heparin 25,000 UNIT/250 ML 25,000 UNIT/250 ML IV.SOLN IVC SCH (23:00)
[2021-06-22 23:31] LABS: BUN/Creatinine Ratio 13 (6-26); Blood Urea Nitrogen 12 mg/dL (8-23); Calcium 8.2 mg/dL (8.6-10.3); Carbon Dioxide 24 mEq/L (23-29); Chloride 104 mEq/L (98-107); Glucose 102 mg/dL (70-105); Osmolality,Calculated 282 (280-300); Potassium 3.7 mEq/L (3.5-5.1); Sodium 136 mEq/L (136-145); eGFR For African Americans > 60 (> 60); eGFR For Non-African Americans > 60 (> 60)
[2021-06-23] MEDS ORDERED: *HR* LORazepam 2 MG/ML VIAL IVP ONE (03:46)
[2021-06-23 04:54] LABS: Hematocrit 40.3 % (37.5-50.1); Hemoglobin 13.1 g/dL (12.9-16.9); Mean Corpuscular HGB Conc 32.5 g/dL (31.6-35.5); Mean Corpuscular Hemoglobin 28.4 pg (28.0-33.3); Mean Corpuscular Volume 87.2 fL (83.0-100.0); Platelet Count 136 K/mcL (140-400); Red Blood Count 4.62 M/mcL (4.19-5.50); Red Cell Distribution Width 14.6 % (11.5-14.5); White Blood Count 9.5 K/mcL (4.3-11.1)
[2021-06-23] MEDS: rOPINIRole 1 MG TABLET PO SCH ×3 (08:40→19:59)
[2021-06-23] MEDS: levoFLOXacin 750 MG TABLET PO SCH (08:43)
[2021-06-23] MEDS: Metoprolol XL (24 HR) Succ 25 MG TAB.ER.24H PO SCH (08:43)
[2021-06-23] MEDS: Furosemide 20 MG TABLET PO SCH (08:43)
[2021-06-23] MEDS: Apixaban 5 MG TABLET PO SCH ×2 (08:43→19:59)
[2021-06-23] MEDS ORDERED: Furosemide 20 MG TABLET PO SCH (09:00)
[2021-06-23] MEDS ORDERED: Pantoprazole 40 MG VIAL IVP SCH (09:00)
[2021-06-23] MEDS ORDERED: levoFLOXacin 750 MG/150 ML 750 MG/150 ML BAG IVPB SCH (09:00)
[2021-06-23] MEDS: Ondansetron 4 MG/2 ML VIAL IVP PRN ×2 (10:39→18:04)
[2021-06-23] MEDS: levETIRAcetam 250 MG TABLET PO SCH ×2 (11:35→16:48)
[2021-06-23] MEDS ORDERED: Ondansetron 4 MG/2 ML VIAL IVP SCH (12:00)
[2021-06-24] MEDS: levETIRAcetam 250 MG TABLET PO SCH (05:25)
[2021-06-24 07:03] VITALS: TEMP 97.9
[2021-06-24] MEDS ORDERED: Phenytoin 1,000 MG, 0.22 MICRON FILTER SET 1 EACH in 0.9 % Sodium Chloride 50 ML IVPB ONE (09:14)
[2021-06-24] MEDS: Apixaban 5 MG TABLET PO SCH (09:16)
[2021-06-24] MEDS: Furosemide 20 MG TABLET PO SCH (09:16)
[2021-06-24] MEDS: levoFLOXacin 750 MG TABLET PO SCH (09:17)
[2021-06-24] MEDS: Metoprolol XL (24 HR) Succ 25 MG TAB.ER.24H PO SCH (09:17)
[2021-06-24] MEDS: rOPINIRole 1 MG TABLET PO SCH (09:17)
[2021-06-24 11:34] VITALS: BP 116/64; PULSE 86; O2SAT 93
[2021-06-27 08:43] LABS: Phenytoin (Dilantin) Free <0.5 ug/mL (1.0-2.5)
== END 2021-06-24 14:03 | disposition home health service (06) | DRG 100 ==
LOC: EMEROOARM 22:12 → ICNU 06-22 03:41 → 2ANU 06-22 18:00
PROVIDERS: ADMIT Internal Medicine; ATTEND Internal Medicine

== ENCOUNTER 2021-07-19 11:20 | Inpatient (IN) ==
[2021-07-19 11:54] LABS: Basophils % 0.4 %; Eosinophils # 0.1 K/mcL (0.0-0.6); Eosinophils % 1.8 %; Hematocrit 42.2 % (37.5-50.1); Hemoglobin 13.8 g/dL (12.9-16.9); Immature Granulocytes % 0.4 % (0-4); Lymphocytes # 0.9 K/mcL (0.6-4.6); Lymphocytes % 17.2 %; Mean Corpuscular HGB Conc 32.7 g/dL (31.6-35.5); Mean Corpuscular Volume 88.7 fL (83.0-100.0); Mean Platelet Volume 7.9 fL (9.4-12.4); Monocytes # 0.3 K/mcL (0.0-1.3); Monocytes % 6.3 %; Neutrophils # 3.7 K/mcL (1.6-8.9); Platelet Count 145 K/mcL (140-400); Red Blood Count 4.76 M/mcL (4.19-5.50); Red Cell Distribution Width 14.6 % (11.5-14.5); Segmented Neutrophils % 73.9 %; White Blood Count 5.1 K/mcL (4.3-11.1)
[2021-07-19 12:04] LABS: INR 1.3; Prothrombin Time 14.4 Seconds (9.4-12.1)
[2021-07-19 12:07] LABS: Activated Partial Thrombo Time 34.3 Seconds (26.0-36.0)
[2021-07-19 12:16] LABS: Alanine Aminotransferase 10 Units/L (7-52); Albumin 3.9 g/dL (3.5-5.7); Albumin/Globulin Ratio 1.1 (1.1-2.2); Alkaline Phosphatase 244 Units/L (34-104); Aspartate Amino Transferase 13 Units/L (13-39); BUN/Creatinine Ratio 20 (6-26); Bilirubin,Direct 0.1 mg/dL (0.0-0.2); Bilirubin,Indirect 0.4 mg/dL (0.0-1.0); Bilirubin,Total 0.5 mg/dL (0.3-1.0); Blood Urea Nitrogen 18 mg/dL (8-23); Calcium 8.5 mg/dL (8.6-10.3); Carbon Dioxide 28 mEq/L (23-29); Chloride 100 mEq/L (98-107); Creatine Kinase 103 Units/L (30-223); Ethanol < 10 mg/dL (Less than 10); Globulin 3.4 g/dL (2.4-3.5); Glucose 132 mg/dL (70-105); Osmolality,Calculated 282 (280-300); Potassium 3.6 mEq/L (3.5-5.1); Sodium 134 mEq/L (136-145); Total Protein 7.3 g/dL (6.4-8.9); Troponin I < 0.03 ng/mL (< 0.04); eGFR For African Americans > 60 (> 60); eGFR For Non-African Americans > 60 (> 60)
[2021-07-19] MEDS: 0.9 % Sodium Chloride 1,000 ML IVC SCH ×2 (12:23→18:05)
[2021-07-19 12:27] LABS: VBG HCO3 28 mEq/L (21-27); VBG PCO2 50 mmHg (41-51); VBG PH 7.36 pH Units (7.32-7.42); VBG PO2 50 mmHg (25-50)
[2021-07-19 12:30] LABS: Thyroid Stimulating Hormone 0.855 mcIU/mL (0.340-5.600)
[2021-07-19 13:28] LABS: Bilirubin,Urine Negative (Negative); Blood,Urine Moderate (Negative); Clarity,Urine Clear (Clear); Color,Urine Light-Yellow (Yellow); Glucose,Urine (UA) Normal (Normal); Ketones,Urine Negative (Negative); Leukocyte Esterase,Urine Negative (Negative); Nitrite,Urine Negative (Negative); PH,Urine 6.5 pH Units (5.0-8.0); Protein,Urine 30 mg/dL (Neg-Trace); RBC,Urine 15-30 per hpf (0-3); Specific Gravity,Urine 1.024 (1.010-1.025); Urobilinogen,Urine Normal (Normal); WBC,Urine 0-3 per hpf (0-3)
[2021-07-19 13:58] LABS: Amphetamine Screen,Urine Negative ng/mL (Cutoff=1000); Barbiturate Screen,Urine Negative ng/mL (Cutoff=200); Benzodiazepines Screen,Urine Negative ng/mL (Cutoff=200); Cannabinoid Screen,Urine Negative ng/mL (Cutoff = 50); Cocaine Screen,Urine Negative ng/mL (Cutoff= 300); Opiate Screen,Urine Negative ng/mL (Cutoff=300); Phencyclidine Screen,Urine Negative ng/mL (Cutoff=25)
[2021-07-19] MEDS ORDERED: rOPINIRole 0.25 MG TABLET PO ONE (14:50)
[2021-07-19] MEDS ORDERED: rOPINIRole 1 MG TABLET PO ONE (15:00)
[2021-07-19] MEDS ORDERED: Ondansetron 4 MG/2 ML VIAL IVP PRN (15:50)
[2021-07-19] MEDS ORDERED: Naloxone 0.4 MG/ML INJ IVP PRN (15:50)
[2021-07-19] MEDS ORDERED: Aspirin 325 MG TABLET PO ONE (15:54)
[2021-07-19] MEDS ORDERED: Perflutren Lipid Microsphere 1.3 ML in 0.9 % Sodium Chloride 8.7 ML IVP PRN (15:56)
[2021-07-19] MEDS: rOPINIRole 2 MG, rOPINIRole 3 MG PO SCH (20:13)
[2021-07-19] MEDS ORDERED: Apixaban 5 MG TABLET PO SCH (21:00)
[2021-07-19] MEDS ORDERED: NON-FORMULARY MEDICATION 1 EACH EACH (Ropinirole Hcl 5 MG Tablet) PO SCH (21:00)
[2021-07-20 02:45] LABS: Basophils % 0.4 %; Eosinophils # 0.1 K/mcL (0.0-0.6); Eosinophils % 1.7 %; Hematocrit 37.8 % (37.5-50.1); Hemoglobin 12.3 g/dL (12.9-16.9); Immature Granulocytes % 0.2 % (0-4); Lymphocytes % 18.1 %; Mean Corpuscular HGB Conc 32.5 g/dL (31.6-35.5); Mean Corpuscular Hemoglobin 28.7 pg (28.0-33.3); Mean Corpuscular Volume 88.1 fL (83.0-100.0); Mean Platelet Volume 8.1 fL (9.4-12.4); Monocytes # 0.4 K/mcL (0.0-1.3); Monocytes % 6.9 %; Neutrophils # 3.9 K/mcL (1.6-8.9); Platelet Count 155 K/mcL (140-400); Red Blood Count 4.29 M/mcL (4.19-5.50); Red Cell Distribution Width 14.5 % (11.5-14.5); Segmented Neutrophils % 72.7 %; White Blood Count 5.4 K/mcL (4.3-11.1)
[2021-07-20 02:55] LABS: INR 1.3; Prothrombin Time 14.8 Seconds (9.4-12.1)
[2021-07-20 03:01] LABS: BUN/Creatinine Ratio 18 (6-26); Blood Urea Nitrogen 14 mg/dL (8-23); Calcium 8.2 mg/dL (8.6-10.3); Carbon Dioxide 24 mEq/L (23-29); Chloride 103 mEq/L (98-107); Chol/HDL Ratio 2.9 (0-4.9); Cholesterol 178 mg/dL (< 200); Glucose 103 mg/dL (70-105); HDL Cholesterol 62 mg/dL (40-59); LDL Cholesterol,Calculated 101 mg/dL (< 100); Magnesium 1.9 mg/dL (1.6-2.6); Osmolality,Calculated 277 (280-300); Phosphorous 3.2 mg/dL (2.7-4.5); Potassium 3.5 mEq/L (3.5-5.1); Sodium 133 mEq/L (136-145); Triglycerides 73 mg/dL (< 150); eGFR For African Americans > 60 (> 60); eGFR For Non-African Americans > 60 (> 60)
[2021-07-20] MEDS: 0.9 % Sodium Chloride 1,000 ML IVC SCH ×3 (03:18→17:44)
[2021-07-20] MEDS ORDERED: *HR* HYDROcodone/Acet 5/325 mg TABLET PO ONE (03:19)
[2021-07-20 10:41] LABS: Estimated Average Glucose 126 mg/dl
[2021-07-20] MEDS: Furosemide 20 MG TABLET PO SCH (10:44)
[2021-07-20] MEDS: rOPINIRole 2 MG, rOPINIRole 3 MG PO SCH ×3 (10:44→19:44)
[2021-07-20] MEDS: Aspirin 81 MG TAB.CHEW PO SCH (10:44)
[2021-07-21] MEDS: 0.9 % Sodium Chloride 1,000 ML IVC SCH ×2 (00:57→15:07)
[2021-07-21] MEDS ORDERED: *HR* HYDROcodone/Acet 5/325 mg TABLET PO ONE (06:29)
[2021-07-21] MEDS: Aspirin 81 MG TAB.CHEW PO SCH (10:08)
[2021-07-21] MEDS: Furosemide 20 MG TABLET PO SCH (10:09)
[2021-07-21] MEDS: rOPINIRole 2 MG, rOPINIRole 3 MG PO SCH ×3 (10:10→20:36)
[2021-07-21 14:41] LABS: Phenytoin (Dilantin) 34.2 mcg/mL (10.0-20.0)
[2021-07-22 03:15] LABS: Hematocrit 39.5 % (37.5-50.1); Hemoglobin 12.9 g/dL (12.9-16.9); Mean Corpuscular HGB Conc 32.7 g/dL (31.6-35.5); Mean Corpuscular Hemoglobin 29.2 pg (28.0-33.3); Mean Corpuscular Volume 89.4 fL (83.0-100.0); Mean Platelet Volume 8.1 fL (9.4-12.4); Platelet Count 157 K/mcL (140-400); Red Blood Count 4.42 M/mcL (4.19-5.50); Red Cell Distribution Width 14.6 % (11.5-14.5); White Blood Count 5.4 K/mcL (4.3-11.1)
[2021-07-22 03:34] LABS: BUN/Creatinine Ratio 23 (6-26); Blood Urea Nitrogen 22 mg/dL (8-23); Calcium 8.3 mg/dL (8.6-10.3); Carbon Dioxide 24 mEq/L (23-29); Chloride 103 mEq/L (98-107); Glucose 113 mg/dL (70-105); Osmolality,Calculated 288 (280-300); Potassium 3.6 mEq/L (3.5-5.1); Sodium 137 mEq/L (136-145); eGFR For African Americans > 60 (> 60); eGFR For Non-African Americans > 60 (> 60)
[2021-07-22] MEDS: Aspirin 81 MG TAB.CHEW PO SCH (08:02)
[2021-07-22] MEDS: Furosemide 20 MG TABLET PO SCH (08:02)
[2021-07-22] MEDS: rOPINIRole 2 MG, rOPINIRole 3 MG PO SCH ×3 (08:02→19:55)
[2021-07-22] MEDS: levETIRAcetam 250 MG TABLET PO SCH ×2 (10:45→19:49)
[2021-07-23] MEDS: rOPINIRole 2 MG, rOPINIRole 3 MG PO SCH (08:02)
[2021-07-23] MEDS: Aspirin 81 MG TAB.CHEW PO SCH (08:03)
[2021-07-23] MEDS: Furosemide 20 MG TABLET PO SCH (08:03)
[2021-07-23] MEDS: levETIRAcetam 250 MG TABLET PO SCH (08:03)
[2021-07-23 10:46] LABS: Hematocrit 39.2 % (37.5-50.1); Hemoglobin 12.8 g/dL (12.9-16.9); Mean Corpuscular HGB Conc 32.7 g/dL (31.6-35.5); Mean Corpuscular Hemoglobin 29.1 pg (28.0-33.3); Mean Corpuscular Volume 89.1 fL (83.0-100.0); Platelet Count 145 K/mcL (140-400); Red Cell Distribution Width 14.6 % (11.5-14.5); White Blood Count 6.5 K/mcL (4.3-11.1)
[2021-07-23 10:54] LABS: Influenza A PCR Negative (Negative); Influenza B PCR Negative (Negative); Resp. Syncytial Virus PCR Negative (Negative)
[2021-07-23 10:55] LABS: SARS-CoV-2 by PCR (In House) Negative (Negative)
[2021-07-23 11:03] LABS: BUN/Creatinine Ratio 19 (6-26); Blood Urea Nitrogen 19 mg/dL (8-23); Calcium 8.4 mg/dL (8.6-10.3); Carbon Dioxide 27 mEq/L (23-29); Chloride 102 mEq/L (98-107); Glucose 141 mg/dL (70-105); Osmolality,Calculated 287 (280-300); Phenytoin (Dilantin) 27.3 mcg/mL (10.0-20.0); Potassium 3.6 mEq/L (3.5-5.1); Sodium 136 mEq/L (136-145); eGFR For African Americans > 60 (> 60); eGFR For Non-African Americans > 60 (> 60)
[2021-07-23 11:33] VITALS: BP 108/60; PULSE 69; TEMP 97.5; O2SAT 94
== END 2021-07-23 13:04 | DRG 101 ==
LOC: EMEROOARM 11:20 → 3BNU 11:20 → SUATTDRO 15:49 → 3BNU 16:06
PROVIDERS: ADMIT Internal Medicine; ATTEND Family Medicine